=== PATIENT | male | born 2000 | race Caucasian/White ===

== ENCOUNTER 2024-01-06 18:46 | Outpatient (BNV) | payer OTHER, SELFPAY | END 2024-01-08 14:52 | PROVIDERS: Admitting Provider Psychiatry & Neurology Psychiatry; Visit Provider Internal Medicine | DX: R00.0 Tachycardia, unspecified (principal) | CPT/HCPCS: 93010 ==

== ENCOUNTER 2024-01-06 18:46 | Inpatient (IN) | payer OTHER, SELFPAY ==
[2024-01-06 19:17] VITALS: BP 144/78; PULSE 82; RESP 18; TEMP 36.9; O2SAT 99; BMI 35.8
--- NOTE | 2024-01-06 19:27 | PC.NURSE ---
Patient arrived to , at 19:10, during change of shift. Clothing changeover done & skin check was unremarkable. Vitals and weight completed. Patient is laughing and answering every question inappropriately. He has stated he lives in [place], stating I am [place] , then stated he lives in [place]. Pt is legally blind and requires assist with everything.
[2024-01-06] MEDS: Lithium Carbonate ER 300 MG TABLET.ER 600 MG PO (23:07)
[2024-01-06] MEDS: CHLORPROMAZINE 225 MG PO (23:08)
[2024-01-06] MEDS: traZODone HCL 50 MG TABLET PO ×2 (23:08→23:57)
[2024-01-06] MEDS: hydrOXYzine HCL 25 MG TABLET PO (23:57)
--- NOTE | 2024-01-07 01:43 | PC.ADMIT ---
Gilberto is a 23 y.o. direct admit from [facility]. He arrived to the unit on 01/06/24 at 19:15 on Sec 12B. The day shift RN checked his VS, his skin and oriented him to the unit. He did not sign any admission papers d/t disorganized behavior. Pt is also legally blind, but able to ambulate independently in his room and hallway. Appears to have difficulty seeing smaller things like food or his belongings. Initially he was placed in Room 506-1, but shortly he was transferred to Group Room B because he was very loud, screaming and shouting in his room. At some point pt was found naked in his room, needed redirection and assist with dressing. Also he was very loud self dialoguing, shouting and laughing and pacing in hallway, needed frequent redirection. Stated that he can't fall asleep, took meds willingly. According to crisis evaluation he presented at [facility] due to concerns for agitation and psychosis. Pt lives in a correction in [place], he started screaming and shouting at a restaurant and continued to do so in ED. He was known to the staff in [place] ED and has been violent towards staff in the past. He was treated with IM Haldol, Ativan, and Benadryl for agitation. Pt does not seem to have a guardian, but according to mother patient has a significant history of psychiatric admissions since his childhood.
[2024-01-07] MEDS: Levothyroxine Sodium 25 MCG TABLET PO (06:41)
[2024-01-07 08:00] VITALS: BP 156/90; PULSE 110; RESP 16; TEMP 36.4; O2SAT 97
[2024-01-07] MEDS: Lithium Carbonate ER 300 MG TABLET.ER 600 MG PO ×2 (08:35→20:36)
[2024-01-07] MEDS: Cholecalciferol (Vitamin D3) 25 MCG TABLET PO (08:38)
[2024-01-07] MEDS: metFORMIN HCl 850 MG TABLET PO ×2 (08:38→20:37)
[2024-01-07] MEDS: CHLORPROMAZINE 225 MG PO ×2 (08:42→20:35)
[2024-01-07 08:52] LABS: Estimated Average Glucose 100 mg/dL; Hemoglobin A1C 126.1927 umol/L; Hemoglobin A1c % 5.1 % (<6.0); Total Hemoglobin (HGBA1C) 3966.1553 umol/L
[2024-01-07 08:59] LABS: Creatinine Clr Calc Pharmacy 125.4; Estimated Glomerular Filt Rate > 60
[2024-01-07 09:07] LABS: Cholesterol 220 mg/dL (<200); HDL Cholesterol 36 mg/dL (>40); LDL Cholesterol Calculated 146 mg/dL (<100); Triglycerides 193 mg/dL (<150)
[2024-01-07 09:25] LABS: Free T4 (Free Thyroxine) 1.33 ng/dL (0.71-1.85); Thyroid Stimulating Hormone 1.71 uIU/mL (0.32-4.0)
[2024-01-07 09:36] LABS: Folate 18.3 ng/mL (> or = 4.0); Vitamin B12 686 pg/mL (200-900)
--- NOTE | 2024-01-07 13:12 | P.CNHOSGPS_ITS ---
History of Present Illness Data of Consult Service Date: 01/07/24 Primary Care Provider: Unknown Physician HPI Reason for consult: medical H+P 23yo M with DM2 on MTF + hypothyroidism on LT4 admitted to for psychiatric decompensation; medical H+P requested per protocol. Pt has no current medical complaints, denying any fever, headache, chills, chest pain, palpitations, dyspnea, cough, abd pain, nausea, or vomiting. Review of Systems 2 Review of Systems: Yes all other systems are reviewed and are negative [facility] Medical History (Updated 01/07/24 @ 13:15 by Fariba Dasilva MD) Type 2 diabetes mellitus Hypothyroidism Surgical History (Updated 01/07/24 @ 13:14 by Fariba Dasilva MD) No pertinent past surgical history Social History Household Members: Family Housing: Other Housing Other:: Long-Term Patient Tobacco Use Status: Never used Tobacco Use of substances other than those prescribed or required for medical reasons: No Currently Displaying Signs/Symptoms of Drug Intoxication Withdrawal: No Advance Directives: No Advance Directives Information Provided: No Do you have thoughts of harming others: None Do you have a plan to hurt others: No Plan Recently lost weight without trying: No Eating poorly because of decreased appetite: No Nutrition Risks: No Nutritional Risk Meds Allergies Allergy/AdvReac Type Severity Reaction Status Date / Time Unable to Assess Allergy Verified 01/06/24 19:18 Active Medications: Current Medications Acetaminophen (Acetaminophen 325 Mg Tablet) 650 mg PO Q6H PRN PRN Reason: Headache/Pain Mild Scale (1-3) Acetaminophen (Acetaminophen 325 Mg Tablet) 975 mg PO Q8H PRN PRN Reason: Analgesia Al Hydroxide/Mg Hydroxide (Magnesium Hydrox/Alum Hydrox 30 Ml Oral.Susp) 30 ml PO Q6H PRN PRN Reason: Heartburn/Nausea Chlorpromazine HCl 200 mg/ (Chlorpromazine HCl 25 mg) 225 mg PO BID [facility] Last Admin: 01/07/24 08:42 Dose: 225 mg Hydroxyzine HCl (Hydroxyzine Hcl 25 Mg Tablet) 25 mg PO Q6H PRN PRN Reason: Anxiety Last Admin: 01/06/24 23:57 Dose: 25 mg Levothyroxine Sodium (Levothyroxine Sodium 25 Mcg Tablet) 25 mcg PO DAILY@0600 [facility] Last Admin: 01/07/24 06:41 Dose: 25 mcg [place] Carbonate ([place] Carbonate Er 300 Mg Tablet.Er) 600 mg PO BID [facility] Last Admin: 01/07/24 08:35 Dose: 600 mg Magnesium Hydroxide (Milk Of Magnesia 30 Ml Oral.Susp) 30 ml PO DAILY PRN PRN Reason: Constipation Metformin HCl (Metformin Hcl 850 Mg Tablet) 850 mg PO BID [facility] Last Admin: 01/07/24 08:38 Dose: 850 mg Nicotine Polacrilex (Nicotine Polacrilex 2 Mg Gum) 4 mg BUCCAL Q2H PRN PRN Reason: Nicotine Cravings Non-Formulary Medication ([place]-3 Acid Ethyl Esters) 1 gm PO DAILY [facility] Trazodone HCl (Trazodone Hcl 50 Mg Tablet) 50 mg PO BEDTIME MRX1 PRN PRN Reason: Insomnia Last Admin: 01/06/24 23:57 Dose: 50 mg Vitamin D (Cholecalciferol (Vitamin D3) 25 Mcg Tablet) 25 mcg PO DAILY [facility] Last Admin: 01/07/24 08:38 Dose: 25 mcg Home Medications ?Medication ?Instructions ?Recorded ?Confirmed ?Last Taken ?Type acetaminophen 500 mg tablet 1,000 mg PO Q8-10H PRN Analgesia 01/06/24 01/06/24 Unknown History chlorpromazine 100 mg tablet 225 mg PO BID 01/06/24 01/06/24 Unknown History cholecalciferol (vitamin D3) 25 25 mcg PO DAILY 01/06/24 01/06/24 Unknown History mcg (1,000 unit) capsule levothyroxine 25 mcg tablet 25 mcg PO DAILY 01/06/24 01/06/24 Unknown History lithium carbonate 300 mg 600 mg PO BID 01/06/24 01/06/24 Unknown History tablet,extended release (Lithobid) metformin 850 mg tablet 850 mg PO BID 01/06/24 01/06/24 Unknown History omega-3 acid ethyl esters 1 gram 1 g PO DAILY 01/06/24 01/06/24 Unknown History capsule Results Labs 01/07/24 08:22 Labs: Laboratory Results - last 24 hr 01/07/24 08:22 Estim Creat Clear Calc 125.4 Estimated GFR > 60 Estimat Average Glucose 100 Hemoglobin A1c % 5.1 Triglycerides 193 H Cholesterol 220 H LDL Cholesterol, Calc 146 H HDL Cholesterol 36 L Vitamin B12 686 Folate 18.3 TSH 1.71 Free T4 1.33 Assessment and Plan (1) Type 2 diabetes mellitus: Status: Acute (2) Hypothyroidism: Status: Acute Plan 23yo M with DM2 on MTF + hypothyroidism on LT4 admitted to for psychiatric decompensation. Pt has no current medical complaints. DM2 - A1c only 5.1; no need for POC BGs; continue MTF hypothyroidism - TSH therapeutic; continue LT4 Psychiatric plan per primary team. Thank you for this consultation. We are signing off the case at this time. Please communicate with us if any new medical questions arise. Physical Exam Vital Signs: Last Vital Signs Temp 97.5 F 01/07/24 08:00 Pulse 110 H 01/07/24 08:00 Resp 16 01/07/24 08:00 BP 156/90 H 01/07/24 08:00 Pulse Ox 97 01/07/24 08:00 O2 Del Method Room Air 01/06/24 19:17 BMI result Body Mass Index 35.8 Gen: in no acute distress HEENT: sclera anicteric, moist mucus membranes Neck: supple Lungs: clear to auscultation bilaterally Heart: regular, tachycardic, no murmurs Abd: soft, non-tender, non-distended Ext: no edema Skin: warm/well-perfused Neuro: alert and oriented x3, no focal findings, CNII-XII intact bilaterally Psych: restricted affect Neuro Cranial nerves: Yes CN's II-XII intact bilaterally
--- NOTE | 2024-01-07 13:31 | HO.PSYADMNOT ---
HPI Date of Service: 01/07/24 Chief Complaint: Unspecified Bipolar Sources of Information: patient interviewed, chart reviewed and crisis/core team assessment reviewed Additional Sources of Information: Anxious HPI Subjective Notes: Section 12B Healthcare Proxy: No Guardianship: No Medical Problems Affecting Mental Status: No Narrative: 23 yo male with long hx of psychiatric issues , reviewed hx presented on papers from transferring ER in [facility] where he is in a custodial- Pt has been decompensating for a bit, prior to admission/agitation episode of screaming and yelling in a restaurant that ppt this admission - he was feeling that a billion eye were watching him. He started yelling and screaming at restaurant and that continued in ER presentation- as well as since on this unit- Pt had been saying he was [place]. Pt denies med noncompliance with this provider- prior to admission- Here patient pacing halls, allowed me to walk with him - Past Psychiatric History: 6 months hospitalization in teens at residential - Medical Evaluation Reviewed: Yes (wasn't able to gather much- has hx DM2, ) note high bp -though hospitalist did not advise- put him on clonidine-it might help him calm down and bring bp down no hx sub abuse DM2 and hypothyroidism [facility] Medical History (Updated 01/07/24 @ 20:08 by Saray Macias MD) Type 2 diabetes mellitus Hypothyroidism Surgical History (Updated 01/07/24 @ 13:14 by Fariba Dasilva MD) No pertinent past surgical history Family History: though mother/father seem in touch with custodial, no guardianship or HCP Social History: lives at custodial for mental health reasons, ?developmental issue or exclusive mh Substance History: none known Trauma History: unknown patient can not answer at this time Diagnostics Vital Signs (24Hr): Vital Signs - 24 hr 01/06/24 19:17 01/07/24 08:00 Temperature 98.4 F 97.5 F Pulse Rate 82 110 H Respiratory Rate 18 16 Blood Pressure 144/78 H 156/90 H Pulse Oximetry 99 97 Oxygen Delivery Method Room Air BMI result Body Mass Index 35.8 Labs 01/07/24 08:22 Labs: Laboratory Results - last 48 hr 01/07/24 08:22 Creatinine 0.95 Estim Creat Clear Calc 125.4 Estimated GFR > 60 Estimat Average Glucose 100 Hemoglobin A1c % 5.1 Triglycerides 193 H Cholesterol 220 H LDL Cholesterol, Calc 146 H HDL Cholesterol 36 L Vitamin B12 686 Folate 18.3 TSH 1.71 Free T4 1.33 Meds/Allergies Meds Home Medications ?Medication ?Instructions ?Recorded ?Confirmed ?Type acetaminophen 500 mg tablet 1,000 mg PO Q8-10H PRN Analgesia 01/06/24 01/06/24 History chlorpromazine 100 mg tablet 225 mg PO BID 01/06/24 01/06/24 History cholecalciferol (vitamin D3) 25 25 mcg PO DAILY 01/06/24 01/06/24 History mcg (1,000 unit) capsule levothyroxine 25 mcg tablet 25 mcg PO DAILY 01/06/24 01/06/24 History lithium carbonate 300 mg 600 mg PO BID 01/06/24 01/06/24 History tablet,extended release (Lithobid) metformin 850 mg tablet 850 mg PO BID 01/06/24 01/06/24 History omega-3 acid ethyl esters 1 gram 1 g PO DAILY 01/06/24 01/06/24 History capsule Allergies Allergies Allergy/AdvReac Type Severity Reaction Status Date / Time No Known Allergies Allergy Verified 01/07/24 18:59 Mental Status Exam Mental Status Exam Narrative: restless , bizarre , throws self on floor in [place], lying down, other times pacing other times yelling and screaming- and disrobing Patient Appearance: Perspiring and Unkempt Patient Orientation: Person Level of Consciousness: Awake and Restless Patient Behavior: Hyperactive, Resistive to Care, Impulsive, Pacing and Poor Eye Contact Mood Description: Apprehensive and Expansive Affect Description: Labile Ability to Follow Directions: Poor Speech Pattern: Rambling and Loud Delusions: Paranoid Ideation and Grandiose Thought Process: Distracted Thought Content: positive for Disorganized Depressive Symptoms: Increased Anxiety, Diff. Making Decisions and Increased Irritability Abnormal Motor Activity Signs and Symptoms: Agitation and Restlessness Judgement: Poor Assessment & Plan Assessment & Plan (1) Hypothyroidism: Status: Acute Code(s): E03.9 - Hypothyroidism, unspecified (2) Type 2 diabetes mellitus: Status: Acute Code(s): E11.9 - Type 2 diabetes mellitus without complications (3) Schizophrenia, chronic condition: Status: Acute Code(s): F20.9 - Schizophrenia, unspecified Plan 23 yo with extensive hx of psychiatric conditions - unclear guardianship or HCP, living in custodial acute decompensation of disorder- Patient educated on: other Informed Consent: does not understand and further education needed Reason for continued inpatient stay Substantial Risk for: harm to self, inability to function and rapid decompensation Statement Statement: I have reviewed the history and physical and performed a pertinent examination on my patient. No changes have occurred unless specified. If the History and Physical was not performed prior to admission, the Hospitalist's service will be consulted for completing the admission physical. Time Spent With Patient Time: Total time managing care of this patient today ____ minutes.
[2024-01-07] MEDS: OLANZapine ODT 10 MG TAB.RAPDIS TRANSLINGU (14:40)
[2024-01-07] MEDS: chlorproMAZINE HCl 100 MG TABLET 200 MG PO (18:23)
[2024-01-07 20:00] VITALS: BP 148/105; PULSE 137; TEMP 37.2; O2SAT 98
[2024-01-07 20:30] VITALS: BP 114/73; PULSE 118; TEMP 36.4
[2024-01-07 20:37] VITALS: BP 114/73
[2024-01-07] MEDS: cloNIDine HCL 0.1 MG TABLET PO (20:37)
[2024-01-07] MEDS: traZODone HCL 50 MG TABLET PO (20:38)
--- NOTE | 2024-01-08 | ECG_ITS ---
Test Reason : check qtc Blood Pressure : / mmHG Vent. Rate : 106 BPM Atrial Rate : 106 BPM P-R Int : 168 ms QRS Dur : 076 ms QT Int : 364 ms P-R-T Axes : 041 058 045 degrees QTc Int : 483 ms Sinus tachycardia Otherwise normal ECG No previous ECGs available Referred By: Saray Macias Electronically Signed By:SADIQ THORNE
[2024-01-08] MEDS: chlorproMAZINE HCl 100 MG TABLET 200 MG PO ×2 (05:38→18:57)
[2024-01-08] MEDS: Levothyroxine Sodium 25 MCG TABLET PO (05:38)
[2024-01-08 08:00] VITALS: TEMP 36.3
[2024-01-08] MEDS: hydrOXYzine HCL 25 MG TABLET PO (09:27)
[2024-01-08] MEDS: Cholecalciferol (Vitamin D3) 25 MCG TABLET PO (09:27)
[2024-01-08] MEDS: Lithium Carbonate ER 300 MG TABLET.ER 600 MG PO ×2 (09:27→20:41)
[2024-01-08] MEDS: CHLORPROMAZINE 225 MG PO ×2 (09:27→20:41)
[2024-01-08 09:28] VITALS: BP 144/90
[2024-01-08] MEDS: metFORMIN HCl 850 MG TABLET PO ×2 (09:28→20:42)
[2024-01-08] MEDS: cloNIDine HCL 0.1 MG TABLET PO ×2 (09:28→20:42)
--- NOTE | 2024-01-08 10:37 | P.PNPSI_ITS ---
Subjective Subjective Date of Service: 01/08/24 Reason For Visit: Unspecified Bipolar Subjective Notes: Section 12B Healthcare Proxy: No Guardianship: No Medical Problems Affecting Mental Status: No Interim History: 23 yo continuing quite disorganized, 10mg olanzapine had little effect yesterday- today we tried 20mg and this seem to have some effect- pt felt better and there was some less lability for a period of time, he didn't yell, disrobe He got his blood drawn and he allowed them to do an ekg. Medication Compliance: Yes Side effects from medications: No Attending Groups: No Review of Systems Acute medical concerns: No though I am concerned about high dose of chlorpromazine and qtc Medical Review of Systems: unchanged Mental Status Exam Mental Status Exam Patient Appearance: Disheveled, Perspiring and Unkempt Patient Orientation: Person and Place Level of Consciousness: Awake Patient Behavior: Restless, Distractible, Impulsive and Poor Eye Contact Mood Description: Apathetic Affect Description: Labile Patient Cognition Impaired: No Ability to Follow Directions: Poor Speech Pattern: Mumbled Hallucinations: None Thought Process: Illogical Thought Content: positive for Poverty of Content and positive for Disorganized Abnormal Motor Activity Signs and Symptoms: Agitation, Muscle Rigidity and Restlessness Judgement: Poor Diagnostics Vital Signs (24Hr): Vital Signs - 24 hr 01/07/24 20:00 01/07/24 20:30 01/07/24 20:37 Temperature 98.9 F 97.6 F Pulse Rate 137 H 118 H Blood Pressure 148/105 H 114/73 114/73 Pulse Oximetry 98 Oxygen Delivery Method Room Air 01/08/24 08:00 01/08/24 09:28 Temperature 97.4 F Pulse Rate Blood Pressure 144/90 H Pulse Oximetry Oxygen Delivery Method BMI result Body Mass Index 35.8 Labs 01/08/24 15:03 01/08/24 15:03 Labs: Laboratory Results - last 48 hr 01/07/24 08:22 Creatinine 0.95 Estim Creat Clear Calc 125.4 Estimated GFR > 60 Estimat Average Glucose 100 Hemoglobin A1c % 5.1 Triglycerides 193 H Cholesterol 220 H LDL Cholesterol, Calc 146 H HDL Cholesterol 36 L Vitamin B12 686 Folate 18.3 TSH 1.71 Free T4 1.33 EKG EKG: reviewed Medications Medications Current Medications Acetaminophen (Acetaminophen 325 Mg Tablet) 650 mg PO Q6H PRN PRN Reason: Headache/Pain Mild Scale (1-3) Acetaminophen (Acetaminophen 325 Mg Tablet) 975 mg PO Q8H PRN PRN Reason: Analgesia Al Hydroxide/Mg Hydroxide (Magnesium Hydrox/Alum Hydrox 30 Ml Oral.Susp) 30 ml PO Q6H PRN PRN Reason: Heartburn/Nausea Chlorpromazine HCl 200 mg/ (Chlorpromazine HCl 25 mg) 225 mg PO BID [facility] Last Admin: 01/08/24 09:27 Dose: 225 mg Chlorpromazine HCl (Chlorpromazine Hcl 100 Mg Tablet) 200 mg PO BID PRN PRN Reason: agitation Last Admin: 01/08/24 05:38 Dose: 200 mg Clonidine HCl (Clonidine Hcl 0.1 Mg Tablet) 0.1 mg PO BID [facility]; Protocol Last Admin: 01/08/24 09:28 Dose: 0.1 mg Hydroxyzine HCl (Hydroxyzine Hcl 25 Mg Tablet) 25 mg PO Q6H PRN PRN Reason: Anxiety Last Admin: 01/08/24 09:27 Dose: 25 mg Levothyroxine Sodium (Levothyroxine Sodium 25 Mcg Tablet) 25 mcg PO DAILY@0600 [facility] Last Admin: 01/08/24 05:38 Dose: 25 mcg [place] Carbonate ([place] Carbonate Er 300 Mg Tablet.Er) 600 mg PO BID [facility] Last Admin: 01/08/24 09:27 Dose: 600 mg Magnesium Hydroxide (Milk Of Magnesia 30 Ml Oral.Susp) 30 ml PO DAILY PRN PRN Reason: Constipation Metformin HCl (Metformin Hcl 850 Mg Tablet) 850 mg PO BID [facility] Last Admin: 01/08/24 09:28 Dose: 850 mg Nicotine Polacrilex (Nicotine Polacrilex 2 Mg Gum) 4 mg BUCCAL Q2H PRN PRN Reason: Nicotine Cravings Non-Formulary Medication ([place]-3 Acid Ethyl Esters) 1 gm PO DAILY [facility] Olanzapine (Olanzapine Odt 10 Mg Tab.Rapdis) 10 mg TRANSLINGU DAILY PRN PRN Reason: psychosis Last Admin: 01/07/24 14:40 Dose: 10 mg Olanzapine (Olanzapine Odt 10 Mg Tab.Rapdis) 20 mg TRANSLINGU DAILY [facility] Trazodone HCl (Trazodone Hcl 50 Mg Tablet) 50 mg PO BEDTIME MRX1 PRN PRN Reason: Insomnia Last Admin: 01/07/24 20:38 Dose: 50 mg Vitamin D (Cholecalciferol (Vitamin D3) 25 Mcg Tablet) 25 mcg PO DAILY [facility] Last Admin: 01/08/24 09:27 Dose: 25 mcg Allergies Allergies Allergy/AdvReac Type Severity Reaction Status Date / Time No Known Allergies Allergy Verified 01/07/24 18:59 Assessment & Plan Assessment & Plan (1) Hypothyroidism: Status: Acute Code(s): E03.9 - Hypothyroidism, unspecified (2) Type 2 diabetes mellitus: Status: Acute Code(s): E11.9 - Type 2 diabetes mellitus without complications (3) Schizophrenia, chronic condition: Status: Acute Code(s): F20.9 - Schizophrenia, unspecified Plan 23 yo with extensive hx of psychiatric conditions - unclear guardianship or HCP, living in shelter acute decompensation of disorder- 01/07 more calm after olanzapine 20mg, today - ? if lower chlorpromazine prns- , got ekg and follow up lab I had ordered Patient educated on: medication risk/benefits Informed Consent: further education needed (needs a guardian) Reason for continued inpatient stay Substantial Risk for: harm to others, inability to function and rapid decompensation Time Spent With Patient Time: Total time managing care of this patient today ____ minutes.
[2024-01-08] MEDS: OLANZapine ODT 10 MG TAB.RAPDIS 20 MG TRANSLINGU (12:02)
[2024-01-08 15:10] LABS: MANUAL DIFF FLAG NO
[2024-01-08 15:13] LABS: Basophils Percent Auto 0.4 % (0-2); Eosinophils Absolute Auto 0.2 X10*3/uL (0.0-0.4); Eosinophils Percent Auto 2.5 % (0-4); Hematocrit 41.4 % (42.0-52.0); Hemoglobin 14.3 g/dl (14.0-18.0); Imm Gran Abs Auto 0.04 X10*3/uL (0.00-0.03); Imm Gran Pct Auto 0.4 % (0.0-0.4); Lymphocytes Absolute Auto 2.9 X10*3/uL (1.2-4.9); Mean Corpuscular HGB Conc 34.5 g/dl (31.0-36.0); Mean Corpuscular Volume 86.8 fL (80.0-98.0); Mean Platelet Volume 8.9 fL (9.4-12.4); Monocytes Absolute Auto 0.6 X10*3/uL (0.1-1.2); Monocytes Percent Auto 6.8 % (2-11); Neutrophils Absolute Auto 5.4 x10*3/uL (2.0-8.3); Neutrophils Percent Auto 58.9 % (45-73); Platelet Count 249 X10*3/uL (160-400); Red Blood Count 4.77 X10*6/uL (4.60-5.80); Red Cell Distribution Width 12.7 % (11.0-16.0); White Blood Count 9.3 X10*3/uL (4.8-10.8)
[2024-01-08 15:24] LABS: Lithium 0.65 mmol/L (0.60-1.20)
[2024-01-08 15:31] LABS: Alanine Aminotransferase 47 U/L (0-40); Albumin Level 4.1 g/dL (3.5-5.0); Alkaline Phosphatase 87 U/L (39-117); Anion Gap 15 (12-20); Aspartate Amino Transferase 30 U/L (5-37); Bilirubin Total 0.3 mg/dL (0.0-1.0); Blood Urea Nitrogen 12 mg/dL (9-16); Calcium 9.5 mg/dL (8.4-10.2); Carbon Dioxide 22 mmol/L (22-29); Chloride 107 mmol/L (96-108); Creatinine Clr Calc Pharmacy 132.3; Estimated Glomerular Filt Rate > 60; Glucose Random 101 mg/dL (60-115); Potassium 3.8 mmol/L (3.3-5.1); Sodium 140 mmol/L (135-145); Total Protein 6.4 g/dL (6.5-8.0)
[2024-01-08 19:55] VITALS: BP 131/81; PULSE 125; RESP 15; TEMP 36.6; O2SAT 99
[2024-01-08] MEDS: traZODone HCL 50 MG TABLET PO (20:42)
[2024-01-09] MEDS: hydrOXYzine HCL 25 MG TABLET PO ×2 (00:06→12:56)
[2024-01-09] MEDS: OLANZapine ODT 10 MG TAB.RAPDIS TRANSLINGU (00:06)
[2024-01-09] MEDS: traZODone HCL 50 MG TABLET PO ×2 (00:06→20:48)
[2024-01-09] MEDS: chlorproMAZINE HCl 100 MG TABLET PO ×2 (02:34→12:56)
[2024-01-09] MEDS: LORazepam 1 MG TABLET 2 MG PO (02:55)
[2024-01-09] MEDS: diphenhydrAMINE HCL 25 MG CAPSULE 50 MG PO (02:55)
[2024-01-09] MEDS: Levothyroxine Sodium 25 MCG TABLET PO (06:03)
[2024-01-09] MEDS: CHLORPROMAZINE 225 MG PO ×2 (09:03→20:48)
[2024-01-09] MEDS: OLANZapine ODT 10 MG TAB.RAPDIS 20 MG TRANSLINGU (09:04)
[2024-01-09] MEDS: Lithium Carbonate ER 300 MG TABLET.ER 600 MG PO (09:04)
[2024-01-09] MEDS: cloNIDine HCL 0.1 MG TABLET PO ×2 (09:04→20:47)
[2024-01-09] MEDS: metFORMIN HCl 850 MG TABLET PO ×2 (09:05→20:48)
[2024-01-09] MEDS: Cholecalciferol (Vitamin D3) 25 MCG TABLET PO (09:05)
--- NOTE | 2024-01-09 09:38 | P.PNPSI_ITS ---
Subjective Subjective Date of Service: 01/09/24 Reason For Visit: Unspecified Bipolar Interim History: met with patient; discussed with team; reviewed chart Over the weekend, patient louder, naked in the hallway and shouting violent threats towards staff; lost privilege of using walking cane. Overnight little sleep, only 3 hours Today, patient still walking up and down the [place] and Intermittently yelling or saying various provocative statements such as the N word towards staff; yelled a genital epithet toward staff/peer; other sexual comments; however, he seems to be more verbally redirectable and has not made any verbal threats so far. Still intermittently disrobing. Chair Car Attendant asked why he would make these provocative statements or comments; patient says I see images... Images of snow on the roof, reindeer, bright lights... He also says I yell out loud what I hear... On inquiry patient denies auditory hallucinations and recalibrates to say he yells what his mind is thinking. He says medications help and that they seem to calm him down. During one-to-one conversation patient polite with show card writer, answering questions as asked without much elaboration. Mental Status Exam Mental Status Exam Narrative: Pt is alert and oriented; behavior is still disorganized (maybe a bit improved) yelling, swearing, racial/genital epithets, pacing back and forth in hallway, sometimes disrobing... patient is not in distress; dressed in hospital attire, unkempt; mood is described as good and affect blunted or constricted; eye contact limited (legally blind); Speech is monotone, sometimes loud; normal rate; not pressured; mild to moderate psychomotor agitation present; thought process is concrete, goal directed; Thought content is on what he wants at the moment; no expressed delusional content; denies any SI/HI. Positive for AH and internally preoccupied; Patients insight and judgment impaired. Diagnostics Vital Signs (24Hr): Vital Signs - 24 hr 01/08/24 19:55 Temperature 98 F Pulse Rate 125 H Respiratory Rate 15 Blood Pressure 131/81 Pulse Oximetry 99 BMI result Body Mass Index 35.8 Labs 01/08/24 15:03 01/08/24 15:03 Labs: Laboratory Results - last 48 hr 01/08/24 15:03 WBC 9.3 RBC 4.77 Hgb 14.3 Hct 41.4 L MCV 86.8 MCH 30.0 MCHC 34.5 RDW 12.7 Plt Count 249 MPV 8.9 L Immature Gran % (Auto) 0.4 Neut % (Auto) 58.9 Lymph % (Auto) 31.0 [place] % (Auto) 6.8 Eos % (Auto) 2.5 Baso % (Auto) 0.4 Lymph # (Auto) 2.9 [place] # (Auto) 0.6 Eos # (Auto) 0.2 Baso # (Auto) 0.0 Abs Immat Gran (auto) 0.04 H Absolute Neuts (auto) 5.4 Absolute Nucleated RBC 0.000 Nucleated RBC % (auto) 0.0 Sodium 140 Potassium 3.8 Chloride 107 Carbon Dioxide 22 Anion Gap 15 BUN 12 Creatinine 0.90 Estim Creat Clear Calc 132.3 Estimated GFR > 60 Random Glucose 101 Calcium 9.5 Total Bilirubin 0.3 AST 30 ALT 47 H Alkaline Phosphatase 87 Total Protein 6.4 L Albumin 4.1 [place] 0.65 Medications Medications Current Medications Acetaminophen (Acetaminophen 325 Mg Tablet) 650 mg PO Q6H PRN PRN Reason: Headache/Pain Mild Scale (1-3) Acetaminophen (Acetaminophen 325 Mg Tablet) 975 mg PO Q8H PRN PRN Reason: Analgesia Al Hydroxide/Mg Hydroxide (Magnesium Hydrox/Alum Hydrox 30 Ml Oral.Susp) 30 ml PO Q6H PRN PRN Reason: Heartburn/Nausea Chlorpromazine HCl 200 mg/ (Chlorpromazine HCl 25 mg) 225 mg PO BID [facility] Last Admin: 01/09/24 09:03 Dose: 225 mg Chlorpromazine HCl (Chlorpromazine Hcl 100 Mg Tablet) 100 mg PO BID PRN PRN Reason: agitation Last Admin: 01/09/24 02:34 Dose: 100 mg Clonidine HCl (Clonidine Hcl 0.1 Mg Tablet) 0.1 mg PO BID [facility]; Protocol Last Admin: 01/09/24 09:04 Dose: 0.1 mg Hydroxyzine HCl (Hydroxyzine Hcl 25 Mg Tablet) 25 mg PO Q6H PRN PRN Reason: Anxiety Last Admin: 01/09/24 00:06 Dose: 25 mg Levothyroxine Sodium (Levothyroxine Sodium 25 Mcg Tablet) 25 mcg PO DAILY@0600 [facility] Last Admin: 01/09/24 06:03 Dose: 25 mcg [place] Carbonate ([place] Carbonate Er 300 Mg Tablet.Er) 600 mg PO BID [facility] Last Admin: 01/09/24 09:04 Dose: 600 mg Magnesium Hydroxide (Milk Of Magnesia 30 Ml Oral.Susp) 30 ml PO DAILY PRN PRN Reason: Constipation Metformin HCl (Metformin Hcl 850 Mg Tablet) 850 mg PO BID [facility] Last Admin: 01/09/24 09:05 Dose: 850 mg Nicotine Polacrilex (Nicotine Polacrilex 2 Mg Gum) 4 mg BUCCAL Q2H PRN PRN Reason: Nicotine Cravings Olanzapine (Olanzapine Odt 10 Mg Tab.Rapdis) 10 mg TRANSLINGU DAILY PRN PRN Reason: psychosis Last Admin: 01/09/24 00:06 Dose: 10 mg Olanzapine (Olanzapine Odt 10 Mg Tab.Rapdis) 20 mg TRANSLINGU DAILY [facility] Last Admin: 01/09/24 09:04 Dose: 20 mg Trazodone HCl (Trazodone Hcl 50 Mg Tablet) 50 mg PO BEDTIME MRX1 PRN PRN Reason: Insomnia Last Admin: 01/09/24 00:06 Dose: 50 mg Vitamin D (Cholecalciferol (Vitamin D3) 25 Mcg Tablet) 25 mcg PO DAILY [facility] Last Admin: 01/09/24 09:05 Dose: 25 mcg Allergies Allergies Allergy/AdvReac Type Severity Reaction Status Date / Time No Known Allergies Allergy Verified 01/07/24 18:59 Assessment & Plan Assessment & Plan (1) Schizophrenia, chronic condition: Status: Acute Code(s): F20.9 - Schizophrenia, unspecified (2) Hypothyroidism: Status: Acute Code(s): E03.9 - Hypothyroidism, unspecified (3) Type 2 diabetes mellitus: Status: Acute Code(s): E11.9 - Type 2 diabetes mellitus without complications Plan 23 yo with extensive hx of psychiatric conditions - unclear guardianship or HCP, living in [facility] acute decompensation of disorder- Hospital course: 01/07 more calm after olanzapine 20mg, today - ? if lower chlorpromazine prns- , got ekg and follow up lab I had ordered 01/08 Over the weekend, patient louder, naked in the hallway and shouting violent threats towards staff; lost privilege of using walking cane. Overnight little sleep, only 3 hours Today, patient still walking up and down the [place] and Intermittently yelling or saying various provocative statements such as the N word towards staff; yelled a genital epithet toward staff/peer; other sexual comments; however, he seems to be more verbally redirectable and has not made any verbal threats so far. Still intermittently disrobing. Chair Car Attendant asked why he would make these provocative statements or comments; patient says I see images... Images of snow on the roof, reindeer, bright lights... He also says I yell out loud what I hear... On inquiry patient denies auditory hallucinations and recalibrates to say he yells what his mind is thinking. He says medications help and that they seem to calm him down. During one-to-one conversation patient calm, even polite with show card writer, answering questions as asked without much elaboration. Need collateral to assess baseline Plan: Twelve B Q 15 minute checks Continue Thorazine to 25 mg b.i.d. Continue Zyprexa 20 mg daily Continue lithium ER 1200 mg, but make a q.h.s. rather than 600 mg b.i.d.to help with poor sleep -will get lithium level and associated labs Continue clonidine 0.1 mg b.i.d. Continue levothyroxine 25 mcg daily Continue metformin 850 mg b.i.d. Patient has Zyprexa 10 mg daily p.r.n. Thorazine 100 mg b.i.d. p.r.n. Patient educated on: diagnosis and medication risk/benefits Informed Consent: understands, does not understand and further education needed Reason for continued inpatient stay Substantial Risk for: inability to function and rapid decompensation Time Spent With Patient Time: Total time managing care of this patient today ____ minutes.
[2024-01-09 20:00] VITALS: BP 126/78; PULSE 70; TEMP 36.8; O2SAT 98
[2024-01-09] MEDS: Lithium Carbonate ER 300 MG TABLET.ER 1200 MG PO (20:46)
[2024-01-09 20:47] VITALS: BP 136/73
[2024-01-10] MEDS: traZODone HCL 50 MG TABLET PO ×3 (01:00→22:28)
[2024-01-10] MEDS: chlorproMAZINE HCl 100 MG TABLET PO ×2 (01:00→22:28)
[2024-01-10] MEDS: Levothyroxine Sodium 25 MCG TABLET PO (07:42)
[2024-01-10] MEDS: Cholecalciferol (Vitamin D3) 25 MCG TABLET PO (09:43)
[2024-01-10] MEDS: CHLORPROMAZINE 225 MG PO ×2 (09:43→21:17)
[2024-01-10] MEDS: metFORMIN HCl 850 MG TABLET PO ×2 (09:43→21:17)
[2024-01-10] MEDS: OLANZapine ODT 10 MG TAB.RAPDIS 20 MG TRANSLINGU (09:43)
--- NOTE | 2024-01-10 09:43 | P.PNPSI_ITS ---
Subjective Subjective Date of Service: 01/10/24 Reason For Visit: Unspecified Bipolar Interim History: Met with patient; discussed with team Patient remains disorganized. He is still pacing the [place], intermittently saying inappropriate sexual remarks but he is no longer yelling them and is noticeably more polite and deferential, more easily redirected. Still moments of disrobing. 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 At baseline no psychotic symptoms present Mental Status Exam Mental Status Exam Narrative: Pt is alert and oriented; behavior is still disorganized (maybe a bit improved), still pacing, making inappropriate remarks but no longer yelling, more polite and more easily redirected; sometimes disrobing... patient is not in distress; dressed in hospital attire, unkempt; mood is described as good and affect blunted or constricted; eye contact limited (legally blind); Speech is monotone, sometimes loud; normal rate; not pressured; mild to moderate psychomotor agitation present; thought process is concrete, goal directed; Thought content is on what he wants at the moment; no expressed delusional content; denies any SI/HI. Positive for AH and internally preoccupied; Patients insight and judgment impaired. Diagnostics Vital Signs (24Hr): Vital Signs - 24 hr 01/09/24 20:00 01/09/24 20:47 Temperature 98.3 F Pulse Rate 70 Blood Pressure 126/78 136/73 Pulse Oximetry 98 BMI result Body Mass Index 35.8 Labs 01/08/24 15:03 01/11/24 08:53 Labs: Laboratory Results - last 48 hr 01/08/24 15:03 WBC 9.3 RBC 4.77 Hgb 14.3 Hct 41.4 L MCV 86.8 MCH 30.0 MCHC 34.5 RDW 12.7 Plt Count 249 MPV 8.9 L Immature Gran % (Auto) 0.4 Neut % (Auto) 58.9 Lymph % (Auto) 31.0 [place] % (Auto) 6.8 Eos % (Auto) 2.5 Baso % (Auto) 0.4 Lymph # (Auto) 2.9 [place] # (Auto) 0.6 Eos # (Auto) 0.2 Baso # (Auto) 0.0 Abs Immat Gran (auto) 0.04 H Absolute Neuts (auto) 5.4 Absolute Nucleated RBC 0.000 Nucleated RBC % (auto) 0.0 Sodium 140 Potassium 3.8 Chloride 107 Carbon Dioxide 22 Anion Gap 15 BUN 12 Creatinine 0.90 Estim Creat Clear Calc 132.3 Estimated GFR > 60 Random Glucose 101 Calcium 9.5 Total Bilirubin 0.3 AST 30 ALT 47 H Alkaline Phosphatase 87 Total Protein 6.4 L Albumin 4.1 [place] 0.65 Medications Medications Current Medications Acetaminophen (Acetaminophen 325 Mg Tablet) 975 mg PO Q8H PRN PRN Reason: Analgesia Al Hydroxide/Mg Hydroxide (Magnesium Hydrox/Alum Hydrox 30 Ml Oral.Susp) 30 ml PO Q6H PRN PRN Reason: Heartburn/Nausea Chlorpromazine HCl 200 mg/ (Chlorpromazine HCl 25 mg) 225 mg PO BID [facility] Last Admin: 01/09/24 20:48 Dose: 225 mg Chlorpromazine HCl (Chlorpromazine Hcl 100 Mg Tablet) 100 mg PO BID PRN PRN Reason: agitation Last Admin: 01/10/24 01:00 Dose: 100 mg Clonidine HCl (Clonidine Hcl 0.1 Mg Tablet) 0.1 mg PO BID [facility]; Protocol Last Admin: 01/09/24 20:47 Dose: 0.1 mg Hydroxyzine HCl (Hydroxyzine Hcl 25 Mg Tablet) 25 mg PO Q6H PRN PRN Reason: Anxiety Last Admin: 01/09/24 12:56 Dose: 25 mg Levothyroxine Sodium (Levothyroxine Sodium 25 Mcg Tablet) 25 mcg PO DAILY@0600 [facility] Last Admin: 01/10/24 07:42 Dose: 25 mcg [place] Carbonate ([place] Carbonate Er 300 Mg Tablet.Er) 1,200 mg PO BEDTIME [facility] Last Admin: 01/09/24 20:46 Dose: 1,200 mg Magnesium Hydroxide (Milk Of Magnesia 30 Ml Oral.Susp) 30 ml PO DAILY PRN PRN Reason: Constipation Metformin HCl (Metformin Hcl 850 Mg Tablet) 850 mg PO BID [facility] Last Admin: 01/09/24 20:48 Dose: 850 mg Nicotine Polacrilex (Nicotine Polacrilex 2 Mg Gum) 4 mg BUCCAL Q2H PRN PRN Reason: Nicotine Cravings Olanzapine (Olanzapine Odt 10 Mg Tab.Rapdis) 10 mg TRANSLINGU DAILY PRN PRN Reason: psychosis Last Admin: 01/09/24 00:06 Dose: 10 mg Olanzapine (Olanzapine Odt 10 Mg Tab.Rapdis) 20 mg TRANSLINGU DAILY [facility] Last Admin: 01/09/24 09:04 Dose: 20 mg Trazodone HCl (Trazodone Hcl 50 Mg Tablet) 50 mg PO BEDTIME MRX1 PRN PRN Reason: Insomnia Last Admin: 01/10/24 01:00 Dose: 50 mg Vitamin D (Cholecalciferol (Vitamin D3) 25 Mcg Tablet) 25 mcg PO DAILY [facility] Last Admin: 01/09/24 09:05 Dose: 25 mcg Allergies Allergies Allergy/AdvReac Type Severity Reaction Status Date / Time No Known Allergies Allergy Verified 01/07/24 18:59 Assessment & Plan Assessment & Plan (1) Schizophrenia, chronic condition: Status: Acute Code(s): F20.9 - Schizophrenia, unspecified (2) Hypothyroidism: Status: Acute Code(s): E03.9 - Hypothyroidism, unspecified (3) Type 2 diabetes mellitus: Status: Acute Code(s): E11.9 - Type 2 diabetes mellitus without complications Plan 23 yo with extensive hx of psychiatric conditions - unclear guardianship or HCP, living in shelter acute decompensation of disorder- Hospital course: 01/07 more calm after olanzapine 20mg, today - ? if lower chlorpromazine prns- , got ekg and follow up lab I had ordered 01/08 Over the weekend, patient louder, naked in the hallway and shouting violent threats towards staff; lost privilege of using walking cane. Overnight little sleep, only 3 hours Today, patient still walking up and down the [place] and Intermittently yelling or saying various provocative statements such as the N word towards staff; yelled a genital epithet toward staff/peer; other sexual comments; however, he seems to be more verbally redirectable and has not made any verbal threats so far. Still intermittently disrobing. -Freezer Tunnel Operator asked why he would make these provocative statements or comments; patient says I see images... Images of snow on the roof, reindeer, bright lights... He also says I yell out loud what I hear... On inquiry patient denies auditory hallucinations and recalibrates to say he yells what his mind is thinking. He says medications help and that they seem to calm him down. During one-to-one conversation patient calm, even polite with automotive service writer, answering questions as asked without much elaboration. 01/09 Patient remains disorganized. He is still pacing the [place], intermittently saying inappropriate sexual remarks but he is no longer yelling them and is noticeably more polite and deferential, more easily redirected. Still moments of disrobing. 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 At baseline no psychotic symptoms present -slept some last night -automotive service writer discussed patients baseline functioning and patient agreed to stay longer for more stabilization; sign CV -looks like Zyprexa was recently started at ED; obtained home medication regimen from shelter which includes: lithium ER 600 mg b.i.d. Thorazine to 225 mg b.i.d. Topamax 50 mg b.i.d. -continue current regimen for now; will likely add Topamax Plan: CV Q 15 minute checks Continue Thorazine to 225 mg b.i.d. Continue Zyprexa 20 mg daily Continue lithium ER 1200 mg, but make a q.h.s. rather than 600 mg b.i.d.to help with poor sleep -will get lithium level and associated labs Continue clonidine 0.1 mg b.i.d. Continue levothyroxine 25 mcg daily Continue metformin 850 mg b.i.d. Patient has Zyprexa 10 mg daily p.r.n. Thorazine 100 mg b.i.d. p.r.n. Patient educated on: diagnosis and medication risk/benefits Informed Consent: understands, does not understand and further education needed Reason for continued inpatient stay Substantial Risk for: inability to function and rapid decompensation Time Spent With Patient Time: Total time managing care of this patient today ____ minutes.
[2024-01-10 09:47] VITALS: BP 138/76; PULSE 115; RESP 15; TEMP 36.9; O2SAT 98
[2024-01-10] MEDS: cloNIDine HCL 0.1 MG TABLET PO ×2 (09:47→21:17)
[2024-01-10 19:39] VITALS: BP 110/66; PULSE 97; RESP 16; TEMP 36.9; O2SAT 99
[2024-01-10] MEDS: Lithium Carbonate ER 300 MG TABLET.ER 1200 MG PO (21:17)
[2024-01-11] MEDS: hydrOXYzine HCL 25 MG TABLET PO ×2 (04:22→22:42)
[2024-01-11] MEDS: OLANZapine ODT 10 MG TAB.RAPDIS TRANSLINGU (06:22)
[2024-01-11] MEDS: Levothyroxine Sodium 25 MCG TABLET PO (06:22)
[2024-01-11 08:00] VITALS: BP 123/84; PULSE 101; TEMP 36.8; O2SAT 97
[2024-01-11] MEDS: CHLORPROMAZINE 225 MG PO ×2 (08:54→22:42)
[2024-01-11 08:56] VITALS: BP 123/84
[2024-01-11] MEDS: metFORMIN HCl 850 MG TABLET PO ×2 (08:56→22:42)
[2024-01-11] MEDS: Cholecalciferol (Vitamin D3) 25 MCG TABLET PO (08:56)
[2024-01-11] MEDS: OLANZapine ODT 10 MG TAB.RAPDIS 20 MG TRANSLINGU (08:56)
[2024-01-11] MEDS: cloNIDine HCL 0.1 MG TABLET PO ×2 (08:56→22:42)
[2024-01-11 09:24] LABS: Lithium 0.91 mmol/L (0.60-1.20)
[2024-01-11 09:41] LABS: Blood Urea Nitrogen 13 mg/dL (9-16); Creatinine Clr Calc Pharmacy 124.1; Estimated Glomerular Filt Rate > 60
[2024-01-11 09:58] LABS: TSH reflex Free T4 1.14 uIU/mL (0.32-4.0)
--- NOTE | 2024-01-11 18:16 | P.PNPSI_ITS ---
Subjective Subjective Date of Service: 01/11/24 Reason For Visit: Unspecified Bipolar Interim History: Met with patient; discussed with team Patient did not sleep last night. Also found to have smeared feces on his bed and toilet seat; still intermittently blurting out inappropriate sexual remarks however less so and overall seems more calm. Production Technician discussed this with him, how he works at [employer] and there, he does not make such comments; patient volunteered that he needs to start being more appropriate. He thanked database report writer for being his fitness teacher; database report writer reminded him that database report writer is his physician in the hospital but patient continued to say he knew database report writer from middle school... Mental Status Exam Mental Status Exam Narrative: Pt is alert and oriented; behavior is a little improved but still disorganized, pacing, intermittently making inappropriate remarks (but less so and no longer yelling;) overall seems more polite, cooperative and is more easily redirected; still sometimes disrobing... patient is not in distress; dressed in hospital attire, unkempt; mood is described as good and affect blunted or constricted; eye contact limited (legally blind); Speech is monotone, sometimes loud; normal rate; not pressured; mild to moderate psychomotor agitation present; thought process is concrete, goal directed; Thought content is on what he wants at the moment; some delusional thinking expressed; denies any SI/HI. Positive for AH and internally preoccupied; Patients insight and judgment impaired. Diagnostics Vital Signs (24Hr): Vital Signs - 24 hr 01/10/24 19:39 01/11/24 08:00 01/11/24 08:56 Temperature 98.5 F 98.2 F Pulse Rate 97 101 H Respiratory Rate 16 Blood Pressure 110/66 123/84 123/84 Pulse Oximetry 99 97 Oxygen Delivery Method Room Air Room Air BMI result Body Mass Index 35.8 Labs 01/08/24 15:03 01/11/24 08:53 Labs: Laboratory Results - last 48 hr 01/11/24 08:53 BUN 13 Creatinine 0.96 Estim Creat Clear Calc 124.1 Estimated GFR > 60 TSH 1.14 [place] 0.91 Medications Medications Current Medications Acetaminophen (Acetaminophen 325 Mg Tablet) 975 mg PO Q8H PRN PRN Reason: Analgesia Al Hydroxide/Mg Hydroxide (Magnesium Hydrox/Alum Hydrox 30 Ml Oral.Susp) 30 ml PO Q6H PRN PRN Reason: Heartburn/Nausea Chlorpromazine HCl 200 mg/ (Chlorpromazine HCl 25 mg) 225 mg PO BID [facility] Last Admin: 01/11/24 08:54 Dose: 225 mg Chlorpromazine HCl (Chlorpromazine Hcl 100 Mg Tablet) 100 mg PO BID PRN PRN Reason: agitation Last Admin: 01/10/24 22:28 Dose: 100 mg Clonidine HCl (Clonidine Hcl 0.1 Mg Tablet) 0.1 mg PO BID [facility]; Protocol Last Admin: 01/11/24 08:56 Dose: 0.1 mg Hydroxyzine HCl (Hydroxyzine Hcl 25 Mg Tablet) 25 mg PO Q6H PRN PRN Reason: Anxiety Last Admin: 01/11/24 04:22 Dose: 25 mg Levothyroxine Sodium (Levothyroxine Sodium 25 Mcg Tablet) 25 mcg PO DAILY@0600 [facility] Last Admin: 01/11/24 06:22 Dose: 25 mcg [place] Carbonate ([place] Carbonate Er 300 Mg Tablet.Er) 1,200 mg PO BEDTIME [facility] Last Admin: 01/10/24 21:17 Dose: 1,200 mg Magnesium Hydroxide (Milk Of Magnesia 30 Ml Oral.Susp) 30 ml PO DAILY PRN PRN Reason: Constipation Metformin HCl (Metformin Hcl 850 Mg Tablet) 850 mg PO BID [facility] Last Admin: 01/11/24 08:56 Dose: 850 mg Nicotine Polacrilex (Nicotine Polacrilex 2 Mg Gum) 4 mg BUCCAL Q2H PRN PRN Reason: Nicotine Cravings Olanzapine (Olanzapine Odt 10 Mg Tab.Rapdis) 10 mg TRANSLINGU DAILY PRN PRN Reason: psychosis Last Admin: 01/11/24 06:22 Dose: 10 mg Olanzapine (Olanzapine Odt 10 Mg Tab.Rapdis) 20 mg TRANSLINGU DAILY [facility] Last Admin: 01/11/24 08:56 Dose: 20 mg Trazodone HCl (Trazodone Hcl 50 Mg Tablet) 50 mg PO BEDTIME MRX1 PRN PRN Reason: Insomnia Last Admin: 01/10/24 22:28 Dose: 50 mg Vitamin D (Cholecalciferol (Vitamin D3) 25 Mcg Tablet) 25 mcg PO DAILY [facility] Last Admin: 01/11/24 08:56 Dose: 25 mcg Allergies Allergies Allergy/AdvReac Type Severity Reaction Status Date / Time No Known Allergies Allergy Verified 01/07/24 18:59 Assessment & Plan Assessment & Plan (1) Schizophrenia, chronic condition: Status: Acute Code(s): F20.9 - Schizophrenia, unspecified (2) Hypothyroidism: Status: Acute Code(s): E03.9 - Hypothyroidism, unspecified (3) Type 2 diabetes mellitus: Status: Acute Code(s): E11.9 - Type 2 diabetes mellitus without complications Plan 23 yo with extensive hx of psychiatric conditions - unclear guardianship or HCP, living in [facility] acute decompensation of disorder- Hospital course: 01/07 more calm after olanzapine 20mg, today - ? if lower chlorpromazine prns- , got ekg and follow up lab I had ordered 01/08 Over the weekend, patient louder, naked in the hallway and shouting violent threats towards staff; lost privilege of using walking cane. Overnight little sleep, only 3 hours Today, patient still walking up and down the [place] and Intermittently yelling or saying various provocative statements such as the N word towards staff; yelled a genital epithet toward staff/peer; other sexual comments; however, he seems to be more verbally redirectable and has not made any verbal threats so far. Still intermittently disrobing. -Production Technician asked why he would make these provocative statements or comments; patient says I see images... Images of snow on the roof, reindeer, bright lights... He also says I yell out loud what I hear... On inquiry patient denies auditory hallucinations and recalibrates to say he yells what his mind is thinking. He says medications help and that they seem to calm him down. During one-to-one conversation patient calm, even polite with database report writer, answering questions as asked without much elaboration. 01/09 Patient remains disorganized. He is still pacing the [place], intermittently saying inappropriate sexual remarks but he is no longer yelling them and is noticeably more polite and deferential, more easily redirected. Still moments of disrobing. 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 At baseline no psychotic symptoms present -slept some last night -database report writer discussed patients baseline functioning and patient agreed to stay longer for more stabilization; sign CV -looks like Zyprexa was recently started at ED; obtained home medication regimen from sn[facility] which includes: lithium ER 600 mg b.i.d. Thorazine to 225 mg b.i.d. Topamax 50 mg b.i.d. -continue current regimen for now; will likely add Topamax 01/10 patient remains disorganized with same behaviors however he is overall less intense, more polite and more easily redirectable. Some insight in that he agrees he needs to stop making inappropriate comments, though not sure if he is capable of this yet. -lithium level WNL; associated labs WNL -will restart Topamax which is his home medication -Will switch Thorazine, which was started at a recent hospitalization, to bedtime since he did not sleep last night. This point will otherwise continue current regimen as patient seems to be slowly improving. Plan: CV Q 15 minute checks Continue Thorazine to 225 mg b.i.d. Continue Zyprexa 20 mg BEDtime (switched from daily) Continue lithium ER 1200 mg, but make a q.h.s. (rather than 600 mg b.i.d.to help with poor sleep) Continue clonidine 0.1 mg b.i.d. Continue levothyroxine 25 mcg daily Continue metformin 850 mg b.i.d. Patient has Zyprexa 10 mg daily p.r.n. Thorazine 100 mg b.i.d. p.r.n. Patient educated on: diagnosis, medication risk/benefits and therapeutic strategies Informed Consent: understands, does not understand and further education needed Reason for continued inpatient stay Substantial Risk for: inability to function Time Spent With Patient Time: Total time managing care of this patient today ____ minutes.
[2024-01-11 19:55] VITALS: BP 138/70; PULSE 107; RESP 14; TEMP 36.6; O2SAT 97
[2024-01-11] MEDS: Lithium Carbonate ER 300 MG TABLET.ER 1200 MG PO (22:42)
[2024-01-11] MEDS: traZODone HCL 50 MG TABLET PO (22:42)
[2024-01-11] MEDS: Topiramate 25 MG TABLET 50 MG PO (22:42)
--- NOTE | 2024-01-12 09:54 | P.PNPSI_ITS ---
Subjective Subjective Date of Service: 01/12/24 Reason For Visit: Unspecified Bipolar Interim History: Met with patient; discussed with team Patient continues on 1:1 due to visual impairment and inappropriate behavior. He continues disorganized in his thought process. Disinhibited. Asking this examiner what are you thankful for [Thanksgiving] He says he feels more calm. Stable. Happy it's Thanksgiving. Denies SI/AVH. Some sexually inappropriate behavior remains. Review of Systems Review of Systems psychomotor agitation- pacing halls legally blind- didn't know there was water in room he is staying in - showed him where it was co thirst Yes all other systems are reviewed and are negative Mental Status Exam Mental Status Exam Narrative: Pt is alert and oriented; behavior is a little improved but still disorganized, pacing, intermittently making inappropriate remarks (but less so and no longer yelling;) overall seems more polite, cooperative and is more easily redirected; still sometimes disrobing... patient is not in distress; dressed in hospital attire, unkempt; mood is described as good and affect blunted or constricted; eye contact limited (legally blind); Speech is monotone, sometimes loud; normal rate; not pressured; mild to moderate psychomotor agitation present; thought process is concrete, goal directed; Thought content is on what he wants at the moment; some delusional thinking expressed; denies any SI/HI. Positive for AH and internally preoccupied; Patients insight and judgment impaired. Patient Appearance: Disheveled, Perspiring and Unkempt Patient Orientation: Person and Place Level of Consciousness: Awake Patient Behavior: Restless, Distractible, Impulsive and Poor Eye Contact Mood Description: Apathetic Affect Description: Labile Patient Cognition Impaired: No Ability to Follow Directions: Poor Speech Pattern: Mumbled Diagnostics Vital Signs (24Hr): Vital Signs - 24 hr 01/11/24 19:55 Temperature 97.9 F Pulse Rate 107 H Respiratory Rate 14 Blood Pressure 138/70 Pulse Oximetry 97 Oxygen Delivery Method Room Air BMI result Body Mass Index 35.8 Labs 01/08/24 15:03 01/11/24 08:53 Labs: Laboratory Results - last 48 hr 01/11/24 08:53 BUN 13 Creatinine 0.96 Estim Creat Clear Calc 124.1 Estimated GFR > 60 TSH 1.14 [place] 0.91 Medications Medications Current Medications Acetaminophen (Acetaminophen 325 Mg Tablet) 975 mg PO Q8H PRN PRN Reason: Analgesia Al Hydroxide/Mg Hydroxide (Magnesium Hydrox/Alum Hydrox 30 Ml Oral.Susp) 30 ml PO Q6H PRN PRN Reason: Heartburn/Nausea Chlorpromazine HCl 200 mg/ (Chlorpromazine HCl 25 mg) 225 mg PO BID [facility] Last Admin: 01/11/24 22:42 Dose: 225 mg Chlorpromazine HCl (Chlorpromazine Hcl 100 Mg Tablet) 100 mg PO BID PRN PRN Reason: agitation Last Admin: 01/10/24 22:28 Dose: 100 mg Clonidine HCl (Clonidine Hcl 0.1 Mg Tablet) 0.1 mg PO BID [facility]; Protocol Last Admin: 01/11/24 22:42 Dose: 0.1 mg Hydroxyzine HCl (Hydroxyzine Hcl 25 Mg Tablet) 25 mg PO Q6H PRN PRN Reason: Anxiety Last Admin: 01/11/24 22:42 Dose: 25 mg Levothyroxine Sodium (Levothyroxine Sodium 25 Mcg Tablet) 25 mcg PO DAILY@0600 [facility] Last Admin: 01/11/24 06:22 Dose: 25 mcg [place] Carbonate ([place] Carbonate Er 300 Mg Tablet.Er) 1,200 mg PO BEDTIME [facility] Last Admin: 01/11/24 22:42 Dose: 1,200 mg Magnesium Hydroxide (Milk Of Magnesia 30 Ml Oral.Susp) 30 ml PO DAILY PRN PRN Reason: Constipation Metformin HCl (Metformin Hcl 850 Mg Tablet) 850 mg PO BID [facility] Last Admin: 01/11/24 22:42 Dose: 850 mg Nicotine Polacrilex (Nicotine Polacrilex 2 Mg Gum) 4 mg BUCCAL Q2H PRN PRN Reason: Nicotine Cravings Olanzapine (Olanzapine Odt 10 Mg Tab.Rapdis) 10 mg TRANSLINGU DAILY PRN PRN Reason: psychosis Last Admin: 01/11/24 06:22 Dose: 10 mg Olanzapine (Olanzapine Odt 10 Mg Tab.Rapdis) 20 mg TRANSLINGU BEDTIME [facility] Topiramate (Topiramate 25 Mg Tablet) 50 mg PO BID [facility] Last Admin: 01/11/24 22:42 Dose: 50 mg Trazodone HCl (Trazodone Hcl 50 Mg Tablet) 50 mg PO BEDTIME MRX1 PRN PRN Reason: Insomnia Last Admin: 01/11/24 22:42 Dose: 50 mg Vitamin D (Cholecalciferol (Vitamin D3) 25 Mcg Tablet) 25 mcg PO DAILY [facility] Last Admin: 01/11/24 08:56 Dose: 25 mcg Allergies Allergies Allergy/AdvReac Type Severity Reaction Status Date / Time No Known Allergies Allergy Verified 01/07/24 18:59 Assessment & Plan Assessment & Plan (1) Schizophrenia, chronic condition: Status: Acute Code(s): F20.9 - Schizophrenia, unspecified (2) Hypothyroidism: Status: Acute Code(s): E03.9 - Hypothyroidism, unspecified (3) Type 2 diabetes mellitus: Status: Acute Code(s): E11.9 - Type 2 diabetes mellitus without complications Plan 23 yo with extensive hx of psychiatric conditions - unclear guardianship or HCP, living in nursing home acute decompensation of disorder- Hospital course: 01/07 more calm after olanzapine 20mg, today - ? if lower chlorpromazine prns- , got ekg and follow up lab I had ordered 01/08 Over the weekend, patient louder, naked in the hallway and shouting violent threats towards staff; lost privilege of using walking cane. Overnight little sleep, only 3 hours Today, patient still walking up and down the [place] and Intermittently yelling or saying various provocative statements such as the N word towards staff; yelled a genital epithet toward staff/peer; other sexual comments; however, he seems to be more verbally redirectable and has not made any verbal threats so far. Still intermittently disrobing. -Portfolio Director asked why he would make these provocative statements or comments; patient says I see images... Images of snow on the roof, reindeer, bright lights... He also says I yell out loud what I hear... On inquiry patient denies auditory hallucinations and recalibrates to say he yells what his mind is thinking. He says medications help and that they seem to calm him down. During one-to-one conversation patient calm, even polite with specification writer, answering questions as asked without much elaboration. 01/09 Patient remains disorganized. He is still pacing the [place], intermittently saying inappropriate sexual remarks but he is no longer yelling them and is noticeably more polite and deferential, more easily redirected. Still moments of disrobing. 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 At baseline no psychotic symptoms present -slept some last night -specification writer discussed patients baseline functioning and patient agreed to stay longer for more stabilization; sign CV -looks like Zyprexa was recently started at ED; obtained home medication regimen from nursing home which includes: lithium ER 600 mg b.i.d. Thorazine to 225 mg b.i.d. Topamax 50 mg b.i.d. -continue current regimen for now; will likely add Topamax 01/10 patient remains disorganized with same behaviors however he is overall less intense, more polite and more easily redirectable. Some insight in that he agrees he needs to stop making inappropriate comments, though not sure if he is capable of this yet. -lithium level WNL; associated labs WNL -will restart Topamax which is his home medication -Will switch Thorazine, which was started at a recent hospitalization, to bedtime since he did not sleep last night. This point will otherwise continue current regimen as patient seems to be slowly improving. 01/11: Remains delusional and disorganized/disinhibited. Continue current management and treatment plan and monitoring response to medications Plan: CV Q 15 minute checks Continue Thorazine to 225 mg b.i.d. Continue Zyprexa 20 mg BEDtime (switched from daily) Continue lithium ER 1200 mg, but make a q.h.s. (rather than 600 mg b.i.d.to help with poor sleep) Continue clonidine 0.1 mg b.i.d. Continue levothyroxine 25 mcg daily Continue metformin 850 mg b.i.d. Patient has Zyprexa 10 mg daily p.r.n. Thorazine 100 mg b.i.d. p.r.n. Reason for continued inpatient stay Substantial Risk for: harm to others, inability to function and rapid decompensation Time Spent With Patient Time: Total time managing care of this patient today ____ minutes.
[2024-01-12] MEDS: Topiramate 25 MG TABLET 50 MG PO ×2 (10:30→21:07)
[2024-01-12] MEDS: metFORMIN HCl 850 MG TABLET PO ×2 (10:30→21:05)
[2024-01-12] MEDS: Levothyroxine Sodium 25 MCG TABLET PO (10:30)
[2024-01-12] MEDS: CHLORPROMAZINE 225 MG PO ×2 (10:30→21:05)
[2024-01-12] MEDS: Cholecalciferol (Vitamin D3) 25 MCG TABLET PO (10:30)
[2024-01-12 20:00] VITALS: BP 127/86; PULSE 127; O2SAT 98
[2024-01-12 21:06] VITALS: BP 127/86
[2024-01-12] MEDS: traZODone HCL 50 MG TABLET PO ×2 (21:06→23:12)
[2024-01-12] MEDS: cloNIDine HCL 0.1 MG TABLET PO (21:06)
[2024-01-12] MEDS: OLANZapine ODT 10 MG TAB.RAPDIS 20 MG TRANSLINGU (21:06)
[2024-01-12] MEDS: Lithium Carbonate ER 300 MG TABLET.ER 1200 MG PO (21:07)
[2024-01-13] MEDS: Levothyroxine Sodium 25 MCG TABLET PO (06:49)
[2024-01-13 08:00] VITALS: BP 148/75; PULSE 116; TEMP 36.7; O2SAT 96
[2024-01-13 08:18] VITALS: BP 148/75
[2024-01-13] MEDS: Topiramate 25 MG TABLET 50 MG PO ×2 (08:18→22:08)
[2024-01-13] MEDS: metFORMIN HCl 850 MG TABLET PO ×2 (08:18→22:08)
[2024-01-13] MEDS: cloNIDine HCL 0.1 MG TABLET PO ×2 (08:18→22:08)
[2024-01-13] MEDS: CHLORPROMAZINE 225 MG PO ×2 (08:19→22:09)
[2024-01-13] MEDS: Cholecalciferol (Vitamin D3) 25 MCG TABLET PO (08:19)
--- NOTE | 2024-01-13 15:03 | HO.PSYCHPN ---
Subjective Subjective Date of Service: 01/13/24 Reason For Visit: Unspecified Bipolar Interim History: Pt is in behavioral control today with less disinhibition. He engages yet is tangential in content. Delusions are still present Per team, mother reports history of aggression, HI, and attempts to strangle others. These symptoms are currently not present Medication Compliance: Yes Side effects from medications: No Attending Groups: No Review of Systems Acute medical concerns: No Review of Systems Review of Systems Denies Yes all other systems are reviewed and are negative Mental Status Exam Mental Status Exam Patient Appearance: Appropriate Patient Orientation: Person and Place Level of Consciousness: Alert Patient Behavior: Guarded, Talkative and Good Eye Contact Mood Description: Apprehensive Affect Description: Apprehensive Patient Cognition Impaired: No Ability to Follow Directions: Fair Speech Pattern: Spontaneous Speech Memory Description: Episodic Impaired Delusions: Paranoid Ideation and Present Thought Process: Distracted Thought Content: positive for Circumstantial Depressive Symptoms: Difficulty Concentrating Abnormal Motor Activity Signs and Symptoms: Restlessness Judgement: Poor Diagnostics Vital Signs (24Hr): Vital Signs - 24 hr 01/12/24 20:00 01/12/24 21:06 01/13/24 08:00 Temperature 98.0 F Pulse Rate 127 H 116 H Blood Pressure 127/86 127/86 148/75 H Pulse Oximetry 98 96 Oxygen Delivery Method Room Air Room Air 01/13/24 08:18 Temperature Pulse Rate Blood Pressure 148/75 H Pulse Oximetry Oxygen Delivery Method BMI result Body Mass Index 35.8 Labs 01/08/24 15:03 01/11/24 08:53 Medications Medications Current Medications Acetaminophen (Acetaminophen 325 Mg Tablet) 975 mg PO Q8H PRN PRN Reason: Analgesia Al Hydroxide/Mg Hydroxide (Magnesium Hydrox/Alum Hydrox 30 Ml Oral.Susp) 30 ml PO Q6H PRN PRN Reason: Heartburn/Nausea Chlorpromazine HCl 200 mg/ (Chlorpromazine HCl 25 mg) 225 mg PO BID [facility] Last Admin: 01/13/24 08:19 Dose: 225 mg Chlorpromazine HCl (Chlorpromazine Hcl 100 Mg Tablet) 100 mg PO BID PRN PRN Reason: agitation Last Admin: 01/10/24 22:28 Dose: 100 mg Clonidine HCl (Clonidine Hcl 0.1 Mg Tablet) 0.1 mg PO BID [facility]; Protocol Last Admin: 01/13/24 08:18 Dose: 0.1 mg Hydroxyzine HCl (Hydroxyzine Hcl 25 Mg Tablet) 25 mg PO Q6H PRN PRN Reason: Anxiety Last Admin: 01/11/24 22:42 Dose: 25 mg Levothyroxine Sodium (Levothyroxine Sodium 25 Mcg Tablet) 25 mcg PO DAILY@0600 [facility] Last Admin: 01/13/24 06:49 Dose: 25 mcg [place] Carbonate ([place] Carbonate Er 300 Mg Tablet.Er) 1,200 mg PO BEDTIME [facility] Last Admin: 01/12/24 21:07 Dose: 1,200 mg Magnesium Hydroxide (Milk Of Magnesia 30 Ml Oral.Susp) 30 ml PO DAILY PRN PRN Reason: Constipation Metformin HCl (Metformin Hcl 850 Mg Tablet) 850 mg PO BID [facility] Last Admin: 01/13/24 08:18 Dose: 850 mg Nicotine Polacrilex (Nicotine Polacrilex 2 Mg Gum) 4 mg [place] Q2H PRN PRN Reason: Nicotine Cravings Olanzapine (Olanzapine Odt 10 Mg Tab.Rapdis) 10 mg TRANSLINGU DAILY PRN PRN Reason: psychosis Last Admin: 01/11/24 06:22 Dose: 10 mg Olanzapine (Olanzapine Odt 10 Mg Tab.Rapdis) 20 mg TRANSLINGU BEDTIME [facility] Last Admin: 01/12/24 21:06 Dose: 20 mg Topiramate (Topiramate 25 Mg Tablet) 50 mg PO BID [facility] Last Admin: 01/13/24 08:18 Dose: 50 mg Trazodone HCl (Trazodone Hcl 50 Mg Tablet) 50 mg PO BEDTIME MRX1 PRN PRN Reason: Insomnia Last Admin: 01/12/24 23:12 Dose: 50 mg Vitamin D (Cholecalciferol (Vitamin D3) 25 Mcg Tablet) 25 mcg PO DAILY [facility] Last Admin: 01/13/24 08:19 Dose: 25 mcg Allergies Allergies Allergy/AdvReac Type Severity Reaction Status Date / Time No Known Allergies Allergy Verified 01/07/24 18:59 Assessment & Plan Assessment & Plan (1) Schizophrenia, chronic condition: Status: Acute Code(s): F20.9 - Schizophrenia, unspecified (2) Hypothyroidism: Status: Acute Code(s): E03.9 - Hypothyroidism, unspecified (3) Type 2 diabetes mellitus: Status: Acute Code(s): E11.9 - Type 2 diabetes mellitus without complications Plan 23 yo with extensive hx of psychiatric conditions - unclear guardianship or HCP, living in custodial acute decompensation of disorder- Hospital course: 01/07 more calm after olanzapine 20mg, today - ? if lower chlorpromazine prns- , got ekg and follow up lab I had ordered 01/08 Over the weekend, patient louder, naked in the hallway and shouting violent threats towards staff; lost privilege of using walking cane. Overnight little sleep, only 3 hours Today, patient still walking up and down the [place] and Intermittently yelling or saying various provocative statements such as the N word towards staff; yelled a genital epithet toward staff/peer; other sexual comments; however, he seems to be more verbally redirectable and has not made any verbal threats so far. Still intermittently disrobing. -Hydraulic Controls Technician asked why he would make these provocative statements or comments; patient says I see images... Images of snow on the roof, reindeer, bright lights... He also says I yell out loud what I hear... On inquiry patient denies auditory hallucinations and recalibrates to say he yells what his mind is thinking. He says medications help and that they seem to calm him down. During one-to-one conversation patient calm, even polite with underwriter solicitation director, answering questions as asked without much elaboration. 01/09 Patient remains disorganized. He is still pacing the [place], intermittently saying inappropriate sexual remarks but he is no longer yelling them and is noticeably more polite and deferential, more easily redirected. Still moments of disrobing. 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 At baseline no psychotic symptoms present -slept some last night -underwriter solicitation director discussed patients baseline functioning and patient agreed to stay longer for more stabilization; sign CV -looks like Zyprexa was recently started at ED; obtained home medication regimen from custodial which includes: lithium ER 600 mg b.i.d. Thorazine to 225 mg b.i.d. Topamax 50 mg b.i.d. -continue current regimen for now; will likely add Topamax 01/10 patient remains disorganized with same behaviors however he is overall less intense, more polite and more easily redirectable. Some insight in that he agrees he needs to stop making inappropriate comments, though not sure if he is capable of this yet. -lithium level WNL; associated labs WNL -will restart Topamax which is his home medication -Will switch Thorazine, which was started at a recent hospitalization, to bedtime since he did not sleep last night. This point will otherwise continue current regimen as patient seems to be slowly improving. 01/11: Remains delusional and disorganized/disinhibited. Continue current management and treatment plan and monitoring response to medications 01/12: Continue current plan of care. Plan: CV Q 15 minute checks Continue Thorazine to 225 mg b.i.d. Continue Zyprexa 20 mg BEDtime (switched from daily) Continue lithium ER 1200 mg, but make a q.h.s. (rather than 600 mg b.i.d.to help with poor sleep) Continue clonidine 0.1 mg b.i.d. Continue levothyroxine 25 mcg daily Continue metformin 850 mg b.i.d. Patient has Zyprexa 10 mg daily p.r.n. Thorazine 100 mg b.i.d. p.r.n. Reason for continued inpatient stay Substantial Risk for: harm to others, inability to function and rapid decompensation Time Spent With Patient Time: Total time managing care of this patient today ____ minutes.
[2024-01-13 20:00] VITALS: BP 131/69; PULSE 91; RESP 16; TEMP 36.8; O2SAT 97
[2024-01-13] MEDS: traZODone HCL 50 MG TABLET PO (22:08)
[2024-01-13] MEDS: OLANZapine ODT 10 MG TAB.RAPDIS 20 MG TRANSLINGU (22:09)
[2024-01-13] MEDS: Lithium Carbonate ER 300 MG TABLET.ER 1200 MG PO (22:09)
[2024-01-14 09:12] VITALS: BP 137/74
[2024-01-14] MEDS: CHLORPROMAZINE 225 MG PO ×2 (09:12→21:24)
[2024-01-14] MEDS: cloNIDine HCL 0.1 MG TABLET PO ×2 (09:12→21:24)
[2024-01-14] MEDS: Topiramate 25 MG TABLET 50 MG PO ×2 (09:12→21:24)
[2024-01-14] MEDS: metFORMIN HCl 850 MG TABLET PO ×2 (09:13→21:24)
[2024-01-14] MEDS: Levothyroxine Sodium 25 MCG TABLET PO (09:13)
--- NOTE | 2024-01-14 10:42 | P.PNPSI_ITS ---
Subjective Subjective Date of Service: 01/14/24 Reason For Visit: Unspecified Bipolar Interim History: Patient remains psychotic and disorganized but in behavioral control and not overtly agitated. Patient says I am trying to get my head straight. I want there to be peace on earth, in space. Peace between earth and space. Earth and the ocean.. I am trying to help the world be in peace. Delusions are still present. Review of Systems Review of Systems Denies Yes all other systems are reviewed and are negative Mental Status Exam Mental Status Exam Narrative: Pt is alert and oriented; behavior is a little improved but still disorganized, pacing, intermittently making inappropriate remarks (but less so and no longer yelling;) overall seems more polite, cooperative and is more easily redirected; still sometimes disrobing... patient is not in distress; dressed in hospital attire, unkempt; mood is described as good and affect blunted or constricted; eye contact limited (legally blind); Speech is monotone, sometimes loud; normal rate; not pressured; mild to moderate psychomotor agitation present; thought process is concrete, goal directed; Thought content is on what he wants at the moment; some delusional thinking expressed; denies any SI/HI. Positive for AH and internally preoccupied; Patients insight and judgment impaired. Patient Appearance: Appropriate Patient Orientation: Person and Place Level of Consciousness: Alert Patient Behavior: Guarded, Talkative and Good Eye Contact Mood Description: Apprehensive Affect Description: Apprehensive Patient Cognition Impaired: No Ability to Follow Directions: Fair Speech Pattern: Spontaneous Speech Memory Description: Episodic Impaired Diagnostics Vital Signs (24Hr): Vital Signs - 24 hr 01/13/24 20:00 01/14/24 09:12 Temperature 98.3 F Pulse Rate 91 Respiratory Rate 16 Blood Pressure 131/69 137/74 Pulse Oximetry 97 Oxygen Delivery Method Room Air BMI result Body Mass Index 35.8 Labs 01/08/24 15:03 01/11/24 08:53 Medications Medications Current Medications Acetaminophen (Acetaminophen 325 Mg Tablet) 975 mg PO Q8H PRN PRN Reason: Analgesia Al Hydroxide/Mg Hydroxide (Magnesium Hydrox/Alum Hydrox 30 Ml Oral.Susp) 30 ml PO Q6H PRN PRN Reason: Heartburn/Nausea Chlorpromazine HCl 200 mg/ (Chlorpromazine HCl 25 mg) 225 mg PO BID [facility] Last Admin: 01/14/24 09:12 Dose: 225 mg Chlorpromazine HCl (Chlorpromazine Hcl 100 Mg Tablet) 100 mg PO BID PRN PRN Reason: agitation Last Admin: 01/10/24 22:28 Dose: 100 mg Clonidine HCl (Clonidine Hcl 0.1 Mg Tablet) 0.1 mg PO BID [facility]; Protocol Last Admin: 01/14/24 09:12 Dose: 0.1 mg Hydroxyzine HCl (Hydroxyzine Hcl 25 Mg Tablet) 25 mg PO Q6H PRN PRN Reason: Anxiety Last Admin: 01/11/24 22:42 Dose: 25 mg Levothyroxine Sodium (Levothyroxine Sodium 25 Mcg Tablet) 25 mcg PO DAILY@0600 [facility] Last Admin: 01/14/24 09:13 Dose: 25 mcg [place] Carbonate ([place] Carbonate Er 300 Mg Tablet.Er) 1,200 mg PO BEDTIME [facility] Last Admin: 01/13/24 22:09 Dose: 1,200 mg Magnesium Hydroxide (Milk Of Magnesia 30 Ml Oral.Susp) 30 ml PO DAILY PRN PRN Reason: Constipation Metformin HCl (Metformin Hcl 850 Mg Tablet) 850 mg PO BID [facility] Last Admin: 01/14/24 09:13 Dose: 850 mg Nicotine Polacrilex (Nicotine Polacrilex 2 Mg Gum) 4 mg [place] Q2H PRN PRN Reason: Nicotine Cravings Olanzapine (Olanzapine Odt 10 Mg Tab.Rapdis) 10 mg TRANSLINGU DAILY PRN PRN Reason: psychosis Last Admin: 01/11/24 06:22 Dose: 10 mg Olanzapine (Olanzapine Odt 10 Mg Tab.Rapdis) 20 mg TRANSLINGU BEDTIME [facility] Last Admin: 01/13/24 22:09 Dose: 20 mg Topiramate (Topiramate 25 Mg Tablet) 50 mg PO BID [facility] Last Admin: 01/14/24 09:12 Dose: 50 mg Trazodone HCl (Trazodone Hcl 50 Mg Tablet) 50 mg PO BEDTIME MRX1 PRN PRN Reason: Insomnia Last Admin: 01/13/24 22:08 Dose: 50 mg Vitamin D (Cholecalciferol (Vitamin D3) 25 Mcg Tablet) 25 mcg PO DAILY [facility] Last Admin: 01/14/24 10:28 Dose: Not Given Allergies Allergies Allergy/AdvReac Type Severity Reaction Status Date / Time No Known Allergies Allergy Verified 01/07/24 18:59 Assessment & Plan Assessment & Plan (1) Schizophrenia, chronic condition: Status: Acute Code(s): F20.9 - Schizophrenia, unspecified (2) Hypothyroidism: Status: Acute Code(s): E03.9 - Hypothyroidism, unspecified (3) Type 2 diabetes mellitus: Status: Acute Code(s): E11.9 - Type 2 diabetes mellitus without complications Plan 23 yo with extensive hx of psychiatric conditions - unclear guardianship or HCP, living in prison acute decompensation of disorder- Hospital course: 01/07 more calm after olanzapine 20mg, today - ? if lower chlorpromazine prns- , got ekg and follow up lab I had ordered 01/08 Over the weekend, patient louder, naked in the hallway and shouting violent threats towards staff; lost privilege of using walking cane. Overnight little sleep, only 3 hours Today, patient still walking up and down the [place] and Intermittently yelling or saying various provocative statements such as the N word towards staff; yelled a genital epithet toward staff/peer; other sexual comments; however, he seems to be more verbally redirectable and has not made any verbal threats so far. Still intermittently disrobing. -Investigative Writer asked why he would make these provocative statements or comments; patient says I see images... Images of snow on the roof, reindeer, bright lights... He also says I yell out loud what I hear... On inquiry patient denies auditory hallucinations and recalibrates to say he yells what his mind is thinking. He says medications help and that they seem to calm him down. During one-to-one conversation patient calm, even polite with physician underwriter, answering questions as asked without much elaboration. 01/09 Patient remains disorganized. He is still pacing the [place], intermittently saying inappropriate sexual remarks but he is no longer yelling them and is noticeably more polite and deferential, more easily redirected. Still moments of disrobing. 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 At baseline no psychotic symptoms present -slept some last night -physician underwriter discussed patients baseline functioning and patient agreed to stay longer for more stabilization; sign CV -looks like Zyprexa was recently started at ED; obtained [facility] medication regimen from [facility] which includes: lithium ER 600 mg b.i.d. Thorazine to 225 mg b.i.d. Topamax 50 mg b.i.d. -continue current regimen for now; will likely add Topamax 01/10 patient remains disorganized with same behaviors however he is overall less intense, more polite and more easily redirectable. Some insight in that he agrees he needs to stop making inappropriate comments, though not sure if he is capable of this yet. -lithium level WNL; associated labs WNL -will restart Topamax which is his home medication -Will switch Thorazine, which was started at a recent hospitalization, to bedtime since he did not sleep last night. This point will otherwise continue current regimen as patient seems to be slowly improving. 01/11: Remains delusional and disorganized/disinhibited. Continue current management and treatment plan and monitoring response to medications 01/12: Continue current plan of care. 01/13: Continue current management and treatment plan. Improving but remains quite psychotic. Plan: CV Q 15 minute checks Continue Thorazine to 225 mg b.i.d. Continue Zyprexa 20 mg BEDtime (switched from daily) Continue lithium ER 1200 mg, but make a q.h.s. (rather than 600 mg b.i.d.to help with poor sleep) Continue clonidine 0.1 mg b.i.d. Continue levothyroxine 25 mcg daily Continue metformin 850 mg b.i.d. Patient has Zyprexa 10 mg daily p.r.n. Thorazine 100 mg b.i.d. p.r.n. Reason for continued inpatient stay Substantial Risk for: harm to others, inability to function and rapid decompensation Time Spent With Patient Time: Total time managing care of this patient today ____ minutes.
[2024-01-14 20:00] VITALS: BP 105/65; PULSE 96; RESP 16; TEMP 36.9; O2SAT 98
[2024-01-14] MEDS: traZODone HCL 50 MG TABLET PO (21:24)
[2024-01-14] MEDS: Lithium Carbonate ER 300 MG TABLET.ER 1200 MG PO (21:24)
[2024-01-14] MEDS: OLANZapine ODT 10 MG TAB.RAPDIS 20 MG TRANSLINGU (21:24)
[2024-01-15 07:53] VITALS: BP 107/64; PULSE 80; TEMP 36.4; O2SAT 99
[2024-01-15] MEDS: CHLORPROMAZINE 225 MG PO ×2 (08:31→22:48)
[2024-01-15] MEDS: Topiramate 25 MG TABLET 50 MG PO ×2 (08:32→22:46)
[2024-01-15] MEDS: Levothyroxine Sodium 25 MCG TABLET PO (08:32)
[2024-01-15] MEDS: metFORMIN HCl 850 MG TABLET PO ×2 (08:32→22:49)
[2024-01-15] MEDS: Cholecalciferol (Vitamin D3) 25 MCG TABLET PO (08:33)
[2024-01-15] MEDS: cloNIDine HCL 0.1 MG TABLET PO ×2 (08:33→22:49)
--- NOTE | 2024-01-15 09:14 | HO.PSYCHPN ---
Subjective Subjective Date of Service: 01/15/24 Reason For Visit: Unspecified Bipolar Interim History: Patient remains psychotic and disorganized but in behavioral control and not overtly agitated. He says I am helping people organize their thoughts. Some people see some and hear some. I help them bridge the gap and make the connection. When asked to clarify how he does that he said I will tell you some other time. He says I'm better. My thoughts are not racing anymore. I feel calm. Denies SI. Review of Systems Review of Systems Denies Yes all other systems are reviewed and are negative Mental Status Exam Mental Status Exam Narrative: Pt is alert and oriented; behavior is a little improved but still disorganized, pacing, intermittently making inappropriate remarks (but less so and no longer yelling;) overall seems more polite, cooperative and is more easily redirected; still sometimes disrobing... patient is not in distress; dressed in hospital attire, unkempt; mood is described as good and affect blunted or constricted; eye contact limited (legally blind); Speech is monotone, sometimes loud; normal rate; not pressured; mild to moderate psychomotor agitation present; thought process is concrete, goal directed; Thought content is on what he wants at the moment; some delusional thinking expressed; denies any SI/HI. Positive for AH and internally preoccupied; Patients insight and judgment impaired. Patient Appearance: Appropriate Patient Orientation: Person and Place Level of Consciousness: Alert Patient Behavior: Guarded, Talkative and Good Eye Contact Mood Description: Apprehensive Affect Description: Apprehensive Patient Cognition Impaired: No Ability to Follow Directions: Fair Speech Pattern: Spontaneous Speech Memory Description: Episodic Impaired Diagnostics Vital Signs (24Hr): Vital Signs - 24 hr 01/14/24 20:00 01/15/24 07:53 Temperature 98.4 F 97.5 F Pulse Rate 96 80 Respiratory Rate 16 Blood Pressure 105/65 107/64 Pulse Oximetry 98 99 Oxygen Delivery Method Room Air Room Air BMI result Body Mass Index 35.8 Labs 01/08/24 15:03 01/11/24 08:53 Medications Medications Current Medications Acetaminophen (Acetaminophen 325 Mg Tablet) 975 mg PO Q8H PRN PRN Reason: Analgesia Al Hydroxide/Mg Hydroxide (Magnesium Hydrox/Alum Hydrox 30 Ml Oral.Susp) 30 ml PO Q6H PRN PRN Reason: Heartburn/Nausea Chlorpromazine HCl 200 mg/ (Chlorpromazine HCl 25 mg) 225 mg PO BID [facility] Last Admin: 01/15/24 08:31 Dose: 225 mg Chlorpromazine HCl (Chlorpromazine Hcl 100 Mg Tablet) 100 mg PO BID PRN PRN Reason: agitation Last Admin: 01/10/24 22:28 Dose: 100 mg Clonidine HCl (Clonidine Hcl 0.1 Mg Tablet) 0.1 mg PO BID [facility]; Protocol Last Admin: 01/15/24 08:33 Dose: 0.1 mg Hydroxyzine HCl (Hydroxyzine Hcl 25 Mg Tablet) 25 mg PO Q6H PRN PRN Reason: Anxiety Last Admin: 01/11/24 22:42 Dose: 25 mg Levothyroxine Sodium (Levothyroxine Sodium 25 Mcg Tablet) 25 mcg PO DAILY@0600 [facility] Last Admin: 01/15/24 08:32 Dose: 25 mcg [place] Carbonate ([place] Carbonate Er 300 Mg Tablet.Er) 1,200 mg PO BEDTIME [facility] Last Admin: 01/14/24 21:24 Dose: 1,200 mg Magnesium Hydroxide (Milk Of Magnesia 30 Ml Oral.Susp) 30 ml PO DAILY PRN PRN Reason: Constipation Metformin HCl (Metformin Hcl 850 Mg Tablet) 850 mg PO BID [facility] Last Admin: 01/15/24 08:32 Dose: 850 mg Nicotine Polacrilex (Nicotine Polacrilex 2 Mg Gum) 4 mg BUCCAL Q2H PRN PRN Reason: Nicotine Cravings Olanzapine (Olanzapine Odt 10 Mg Tab.Rapdis) 10 mg TRANSLINGU DAILY PRN PRN Reason: psychosis Last Admin: 01/11/24 06:22 Dose: 10 mg Olanzapine (Olanzapine Odt 10 Mg Tab.Rapdis) 20 mg TRANSLINGU BEDTIME [facility] Last Admin: 01/14/24 21:24 Dose: 20 mg Topiramate (Topiramate 25 Mg Tablet) 50 mg PO BID [facility] Last Admin: 01/15/24 08:32 Dose: 50 mg Trazodone HCl (Trazodone Hcl 50 Mg Tablet) 50 mg PO BEDTIME MRX1 PRN PRN Reason: Insomnia Last Admin: 01/14/24 21:24 Dose: 50 mg Vitamin D (Cholecalciferol (Vitamin D3) 25 Mcg Tablet) 25 mcg PO DAILY [facility] Last Admin: 01/15/24 08:33 Dose: 25 mcg Allergies Allergies Allergy/AdvReac Type Severity Reaction Status Date / Time No Known Allergies Allergy Verified 01/07/24 18:59 Assessment & Plan Assessment & Plan (1) Schizophrenia, chronic condition: Status: Acute Code(s): F20.9 - Schizophrenia, unspecified (2) Hypothyroidism: Status: Acute Code(s): E03.9 - Hypothyroidism, unspecified (3) Type 2 diabetes mellitus: Status: Acute Code(s): E11.9 - Type 2 diabetes mellitus without complications Plan 23 yo with extensive hx of psychiatric conditions - unclear guardianship or HCP, living in retirement acute decompensation of disorder- Hospital course: 01/07 more calm after olanzapine 20mg, today - ? if lower chlorpromazine prns- , got ekg and follow up lab I had ordered 01/08 Over the weekend, patient louder, naked in the hallway and shouting violent threats towards staff; lost privilege of using walking cane. Overnight little sleep, only 3 hours Today, patient still walking up and down the [place] and Intermittently yelling or saying various provocative statements such as the N word towards staff; yelled a genital epithet toward staff/peer; other sexual comments; however, he seems to be more verbally redirectable and has not made any verbal threats so far. Still intermittently disrobing. -Pre Planning Advisor asked why he would make these provocative statements or comments; patient says I see images... Images of snow on the roof, reindeer, bright lights... He also says I yell out loud what I hear... On inquiry patient denies auditory hallucinations and recalibrates to say he yells what his mind is thinking. He says medications help and that they seem to calm him down. During one-to-one conversation patient calm, even polite with chief writer, answering questions as asked without much elaboration. 01/09 Patient remains disorganized. He is still pacing the [place], intermittently saying inappropriate sexual remarks but he is no longer yelling them and is noticeably more polite and deferential, more easily redirected. Still moments of disrobing. 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 At baseline no psychotic symptoms present -slept some last night -chief writer discussed patients baseline functioning and patient agreed to stay longer for more stabilization; sign CV -looks like Zyprexa was recently started at ED; obtained home medication regimen from retirement which includes: lithium ER 600 mg b.i.d. Thorazine to 225 mg b.i.d. Topamax 50 mg b.i.d. -continue current regimen for now; will likely add Topamax 01/10 patient remains disorganized with same behaviors however he is overall less intense, more polite and more easily redirectable. Some insight in that he agrees he needs to stop making inappropriate comments, though not sure if he is capable of this yet. -lithium level WNL; associated labs WNL -will restart Topamax which is his home medication -Will switch Thorazine, which was started at a recent hospitalization, to bedtime since he did not sleep last night. This point will otherwise continue current regimen as patient seems to be slowly improving. 01/11: Remains delusional and disorganized/disinhibited. Continue current management and treatment plan and monitoring response to medications 01/12: Continue current plan of care. 01/13: Continue current management and treatment plan. Improving but remains quite psychotic. 01/14: Continue current management and treatment plan. Improved but remains psychotic. Plan: CV Q 15 minute checks Continue Thorazine to 225 mg b.i.d. Continue Zyprexa 20 mg BEDtime (switched from daily) Continue lithium ER 1200 mg, but make a q.h.s. (rather than 600 mg b.i.d.to help with poor sleep) Continue clonidine 0.1 mg b.i.d. Continue levothyroxine 25 mcg daily Continue metformin 850 mg b.i.d. Patient has Zyprexa 10 mg daily p.r.n. Thorazine 100 mg b.i.d. p.r.n. Reason for continued inpatient stay Substantial Risk for: inability to function and rapid decompensation Time Spent With Patient Time: Total time managing care of this patient today ____ minutes.
[2024-01-15 20:00] VITALS: BP 136/86; PULSE 111; TEMP 37.1; O2SAT 99
[2024-01-15 22:45] VITALS: BP 126/64; PULSE 119; TEMP 36.9; O2SAT 97
[2024-01-15] MEDS: Lithium Carbonate ER 300 MG TABLET.ER 1200 MG PO (22:47)
[2024-01-15 22:49] VITALS: BP 126/64
[2024-01-15] MEDS: OLANZapine ODT 10 MG TAB.RAPDIS 20 MG TRANSLINGU (22:49)
[2024-01-15] MEDS: traZODone HCL 50 MG TABLET PO (22:50)
[2024-01-15] MEDS: hydrOXYzine HCL 25 MG TABLET PO (23:35)
[2024-01-16] MEDS: chlorproMAZINE HCl 100 MG TABLET PO (01:04)
[2024-01-16] MEDS: Levothyroxine Sodium 25 MCG TABLET PO (07:21)
[2024-01-16 08:00] VITALS: BP 116/77; PULSE 104; RESP 16; TEMP 36.8; O2SAT 96
--- NOTE | 2024-01-16 09:06 | P.PNPSI_ITS ---
Subjective Subjective Date of Service: 01/16/24 Reason For Visit: Unspecified Bipolar Interim History: Met with patient; discussed with team; reviewed chart Patient intermittently agitated over the weekend but overall remains more stable than on admission. Did not sleep last night. Making some delusional comments, that there was a bunch of [place] he is taking over something in the police were called... Patient tells blurb writer that he is still confused and says I feel like a child right now... Reports continued racing thoughts. Discussed medications and patient agrees to get on Depakote. Mental Status Exam Mental Status Exam Narrative: Pt is alert and oriented; behavior overall more calm and organized than on admission; no longer pacing. Still intermittently making inappropriate remarks but remains overall polite, cooperative and is easily redirected; no longer disrobing; patient is not in distress; dressed in hospital attire, unkempt; mood is described as confused and affect congruent, anxious; eye contact limited (legally blind); Speech is monotone, normal rate, volume and prosody; not pressured; mild psychomotor agitation present and not sleeping; thought process is concrete, goal directed; Thought content is on struggling with symptoms, with intermittent delusional thinking; denies any SI/HI. Positive for AH and internally preoccupied; Patients insight and judgment impaired though improved since admission. Diagnostics Vital Signs (24Hr): Vital Signs - 24 hr 01/15/24 20:00 01/15/24 22:45 01/15/24 22:49 Temperature 98.7 F 98.4 F Pulse Rate 111 H 119 H Respiratory Rate Blood Pressure 136/86 126/64 126/64 Pulse Oximetry 99 97 Oxygen Delivery Method Room Air Room Air 01/16/24 08:00 Temperature 98.2 F Pulse Rate 104 H Respiratory Rate 16 Blood Pressure 116/77 Pulse Oximetry 96 Oxygen Delivery Method Room Air BMI result Body Mass Index 35.8 Labs 01/08/24 15:03 01/17/24 09:23 Medications Medications Current Medications Acetaminophen (Acetaminophen 325 Mg Tablet) 975 mg PO Q8H PRN PRN Reason: Analgesia Al Hydroxide/Mg Hydroxide (Magnesium Hydrox/Alum Hydrox 30 Ml Oral.Susp) 30 ml PO Q6H PRN PRN Reason: Heartburn/Nausea Chlorpromazine HCl 200 mg/ (Chlorpromazine HCl 25 mg) 225 mg PO BID [facility] Last Admin: 01/15/24 22:48 Dose: 225 mg Chlorpromazine HCl (Chlorpromazine Hcl 100 Mg Tablet) 100 mg PO BID PRN PRN Reason: agitation Last Admin: 01/16/24 01:04 Dose: 100 mg Clonidine HCl (Clonidine Hcl 0.1 Mg Tablet) 0.1 mg PO BID [facility]; Protocol Last Admin: 01/15/24 22:49 Dose: 0.1 mg Hydroxyzine HCl (Hydroxyzine Hcl 25 Mg Tablet) 25 mg PO Q6H PRN PRN Reason: Anxiety Last Admin: 01/15/24 23:35 Dose: 25 mg Levothyroxine Sodium (Levothyroxine Sodium 25 Mcg Tablet) 25 mcg PO DAILY@0600 [facility] Last Admin: 01/16/24 07:21 Dose: 25 mcg [place] Carbonate ([place] Carbonate Er 300 Mg Tablet.Er) 1,200 mg PO BEDTIME [facility] Last Admin: 01/15/24 22:47 Dose: 1,200 mg Magnesium Hydroxide (Milk Of Magnesia 30 Ml Oral.Susp) 30 ml PO DAILY PRN PRN Reason: Constipation Metformin HCl (Metformin Hcl 850 Mg Tablet) 850 mg PO BID [facility] Last Admin: 01/15/24 22:49 Dose: 850 mg Nicotine Polacrilex (Nicotine Polacrilex 2 Mg Gum) 4 mg BUCCAL Q2H PRN PRN Reason: Nicotine Cravings Olanzapine (Olanzapine Odt 10 Mg Tab.Rapdis) 10 mg TRANSLINGU DAILY PRN PRN Reason: psychosis Last Admin: 01/11/24 06:22 Dose: 10 mg Olanzapine (Olanzapine Odt 10 Mg Tab.Rapdis) 20 mg TRANSLINGU BEDTIME [facility] Last Admin: 01/15/24 22:49 Dose: 20 mg Topiramate (Topiramate 25 Mg Tablet) 50 mg PO BID [facility] Last Admin: 01/15/24 22:46 Dose: 50 mg Trazodone HCl (Trazodone Hcl 50 Mg Tablet) 50 mg PO BEDTIME MRX1 PRN PRN Reason: Insomnia Last Admin: 01/15/24 22:50 Dose: 50 mg Vitamin D (Cholecalciferol (Vitamin D3) 25 Mcg Tablet) 25 mcg PO DAILY [facility] Last Admin: 01/15/24 08:33 Dose: 25 mcg Allergies Allergies Allergy/AdvReac Type Severity Reaction Status Date / Time No Known Allergies Allergy Verified 01/07/24 18:59 Assessment & Plan Assessment & Plan (1) Schizophrenia, chronic condition: Status: Acute Code(s): F20.9 - Schizophrenia, unspecified (2) Hypothyroidism: Status: Acute Code(s): E03.9 - Hypothyroidism, unspecified (3) Type 2 diabetes mellitus: Status: Acute Code(s): E11.9 - Type 2 diabetes mellitus without complications Plan 23 yo with extensive hx of psychiatric conditions - unclear guardianship or HCP, [facility] acute decompensation of disorder- Hospital course: 01/07 more calm after olanzapine 20mg, today - ? if lower chlorpromazine prns- , got ekg and follow up lab I had ordered 01/08 Over the weekend, patient louder, naked in the hallway and shouting violent threats towards staff; lost privilege of using walking cane. Overnight little sleep, only 3 hours Today, patient still walking up and down the [place] and Intermittently yelling or saying various provocative statements such as the N word towards staff; yelled a genital epithet toward staff/peer; other sexual comments; however, he seems to be more verbally redirectable and has not made any verbal threats so far. Still intermittently disrobing. -Director Of National [employer] asked why he would make these provocative statements or comments; patient says I see images... Images of snow on the roof, reindeer, bright lights... He also says I yell out loud what I hear... On inquiry patient denies auditory hallucinations and recalibrates to say he yells what his mind is thinking. He says medications help and that they seem to calm him down. During one-to-one conversation patient calm, even polite with blurb writer, answering questions as asked without much elaboration. 01/09 Patient remains disorganized. He is still pacing the [place], intermittently saying inappropriate sexual remarks but he is no longer yelling them and is noticeably more polite and deferential, more easily redirected. Still moments of disrobing. 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 At baseline no psychotic symptoms present -slept some last night -blurb writer discussed patients baseline functioning and patient agreed to stay longer for more stabilization; sign CV -looks like Zyprexa was recently started at ED; [facility] regimen [facility] which includes: lithium ER 600 mg b.i.d. Thorazine to 225 mg b.i.d. Topamax 50 mg b.i.d. -continue current regimen for now; will likely add Topamax 01/10 patient remains disorganized with same behaviors however he is overall less intense, more polite and more easily redirectable. Some insight in that he agrees he needs to stop making inappropriate comments, though not sure if he is capable of this yet. -lithium level WNL; associated labs WNL -will restart Topamax which is his home medication -Will switch Thorazine, which was started at a recent hospitalization, to bedtime since he did not sleep last night. This point will otherwise continue current regimen as patient seems to be slowly improving. 01/11: Remains delusional and disorganized/disinhibited. Continue current management and treatment plan and monitoring response to medications 01/12: Continue current plan of care. 01/13: Continue current management and treatment plan. Improving but remains quite psychotic. 01/14: Continue current management and treatment plan. Improved but remains psychotic. 01/15 Patient intermittently agitated over the weekend but overall remains more stable than on admission. Did not sleep last night. Making some delusional comments, that there was a bunch of [place] he is taking over something in the police were called... Patient tells blurb writer that he is still confused and says I feel like a child right now... Reports continued racing thoughts. Discussed medications and patient agrees to get on Depakote. Plan: CV Q 15 minute checks Continue Thorazine to 225 mg b.i.d. START Depakote ER 750mg qhs LOWER (and taper off) to Zyprexa 15 mg BEDtime (medication was started at [facility], last psych hospitalization a week before this 1) Continue lithium ER 1200 mg, but make a q.h.s. (rather than 600 mg b.i.d.to help with poor sleep) Continue clonidine 0.1 mg b.i.d. Continue levothyroxine 25 mcg daily Continue metformin 850 mg b.i.d. Patient has Zyprexa 10 mg daily p.r.n. Thorazine 100 mg b.i.d. p.r.n. Patient educated on: diagnosis and medication risk/benefits Informed Consent: understands, does not understand and further education needed Reason for continued inpatient stay Substantial Risk for: inability to function Time Spent With Patient Time: Total time managing care of this patient today ____ minutes.
[2024-01-16] MEDS: Topiramate 25 MG TABLET 50 MG PO ×2 (10:41→21:37)
[2024-01-16] MEDS: CHLORPROMAZINE 225 MG PO ×2 (10:41→21:37)
[2024-01-16 10:42] VITALS: BP 116/77
[2024-01-16] MEDS: cloNIDine HCL 0.1 MG TABLET PO ×2 (10:42→21:38)
[2024-01-16] MEDS: Cholecalciferol (Vitamin D3) 25 MCG TABLET PO (10:42)
[2024-01-16] MEDS: metFORMIN HCl 850 MG TABLET PO ×2 (10:42→21:36)
[2024-01-16] MEDS: Acetaminophen 325 MG TABLET 975 MG PO (10:48)
[2024-01-16 20:00] VITALS: BP 114/72; PULSE 118; TEMP 36.9; O2SAT 99
[2024-01-16] MEDS: Lithium Carbonate ER 300 MG TABLET.ER 1200 MG PO (21:36)
[2024-01-16] MEDS: Divalproex Sodium ER 250 MG TAB.ER.24H 750 MG PO (21:36)
[2024-01-16 21:38] VITALS: BP 114/72
[2024-01-16] MEDS: traZODone HCL 50 MG TABLET PO (21:39)
[2024-01-16] MEDS: OLANZapine ODT 10 MG TAB.RAPDIS TRANSLINGU (21:39)
[2024-01-17] MEDS: Levothyroxine Sodium 25 MCG TABLET PO (07:13)
[2024-01-17 09:21] VITALS: BP 128/80
[2024-01-17] MEDS: cloNIDine HCL 0.1 MG TABLET PO ×2 (09:21→21:31)
[2024-01-17] MEDS: Topiramate 25 MG TABLET 50 MG PO ×2 (09:21→21:32)
[2024-01-17] MEDS: Cholecalciferol (Vitamin D3) 25 MCG TABLET PO (09:21)
[2024-01-17] MEDS: metFORMIN HCl 850 MG TABLET PO ×2 (09:21→21:30)
[2024-01-17] MEDS: CHLORPROMAZINE 225 MG PO ×2 (09:21→21:30)
[2024-01-17 09:47] LABS: Creatinine Clr Calc Pharmacy 115.6; Estimated Glomerular Filt Rate > 60
[2024-01-17 21:31] VITALS: BP 155/100
[2024-01-17] MEDS: Lithium Carbonate ER 300 MG TABLET.ER 1200 MG PO (21:31)
[2024-01-17] MEDS: OLANZapine ODT 10 MG TAB.RAPDIS TRANSLINGU (21:32)
[2024-01-17] MEDS: Divalproex Sodium ER 250 MG TAB.ER.24H 750 MG PO (21:32)
[2024-01-17] MEDS: traZODone HCL 50 MG TABLET PO ×2 (21:32→23:14)
--- NOTE | 2024-01-17 22:51 | P.PNPSI_ITS ---
Subjective Subjective Date of Service: 01/17/24 Reason For Visit: Unspecified Bipolar Interim History: Met with patient; discussed with team Patient slept last night having started Depakote Still making inappropriate comments but redirectable. Today he lashed out at his one-to-one staff, saying ... Why did you call me a pedophile however patient quickly apologized. He tells customs entry writer that today he feels more clear minded and agrees to continue with Depakote. Would like Zyprexa to be lowered to which customs entry writer agreed Patient reported sore throat but refused throat culture. Mental Status Exam Mental Status Exam Narrative: Pt is alert and oriented; behavior overall more calm and organized than on admission; no longer pacing. Still intermittently making inappropriate remarks but remains overall polite, cooperative and is easily redirected; no longer disrobing; patient is not in distress; dressed in hospital attire, unkempt; mood is described as more clear minded and affect congruent, more calm; eye contact limited (legally blind); Speech is monotone, normal rate, volume and prosody; not pressured; mild psychomotor agitation present and not sleeping; thought process is concrete, goal directed; Thought content is on struggling with symptoms, with intermittent delusional thinking; denies any SI/HI. Positive for AH and internally preoccupied; Patients insight and judgment impaired though improving. Diagnostics Vital Signs (24Hr): Vital Signs - 24 hr 01/17/24 09:21 01/17/24 21:31 Blood Pressure 128/80 155/100 H BMI result Body Mass Index 35.8 Labs 01/08/24 15:03 01/17/24 09:23 Labs: Laboratory Results - last 48 hr 01/17/24 09:23 Creatinine 1.03 Estim Creat Clear Calc 115.6 Estimated GFR > 60 Medications Medications Current Medications Acetaminophen (Acetaminophen 325 Mg Tablet) 975 mg PO Q8H PRN PRN Reason: Analgesia Last Admin: 01/16/24 10:48 Dose: 975 mg Al Hydroxide/Mg Hydroxide (Magnesium Hydrox/Alum Hydrox 30 Ml Oral.Susp) 30 ml PO Q6H PRN PRN Reason: Heartburn/Nausea Benzocaine (Throat Lozenge, Medicated Lozenge) 1 lozenge MUCOUS MEM Q2H PRN PRN Reason: Sore Throat Chlorpromazine HCl 200 mg/ (Chlorpromazine HCl 25 mg) 225 mg PO BID [facility] Last Admin: 01/17/24 21:30 Dose: 225 mg Chlorpromazine HCl (Chlorpromazine Hcl 100 Mg Tablet) 100 mg PO BID PRN PRN Reason: agitation Last Admin: 01/16/24 01:04 Dose: 100 mg Clonidine HCl (Clonidine Hcl 0.1 Mg Tablet) 0.1 mg PO BID [facility]; Protocol Last Admin: 01/17/24 21:31 Dose: 0.1 mg Divalproex Sodium (Divalproex Sodium Er 250 Mg Tab.Er.24h) 750 mg PO BEDTIME [facility] Last Admin: 01/17/24 21:32 Dose: 750 mg Hydroxyzine HCl (Hydroxyzine Hcl 25 Mg Tablet) 25 mg PO Q6H PRN PRN Reason: Anxiety Last Admin: 01/15/24 23:35 Dose: 25 mg Levothyroxine Sodium (Levothyroxine Sodium 25 Mcg Tablet) 25 mcg PO DAILY@0600 [facility] Last Admin: 01/17/24 07:13 Dose: 25 mcg [place] Carbonate ([place]edar Carbonate Er 300 Mg Tablet.Er) 1,200 mg PO BEDTIME [facility] Last Admin: 01/17/24 21:31 Dose: 1,200 mg Magnesium Hydroxide (Milk Of Magnesia 30 Ml Oral.Susp) 30 ml PO DAILY PRN PRN Reason: Constipation Metformin HCl (Metformin Hcl 850 Mg Tablet) 850 mg PO BID [facility] Last Admin: 01/17/24 21:30 Dose: 850 mg Nicotine Polacrilex (Nicotine Polacrilex 2 Mg Gum) 4 mg BUCCAL Q2H PRN PRN Reason: Nicotine Cravings Olanzapine (Olanzapine Odt 10 Mg Tab.Rapdis) 10 mg TRANSLINGU DAILY PRN PRN Reason: psychosis Last Admin: 01/11/24 06:22 Dose: 10 mg Olanzapine (Olanzapine Odt 10 Mg Tab.Rapdis) 10 mg TRANSLINGU BEDTIME [facility] Last Admin: 01/17/24 21:32 Dose: 10 mg Topiramate (Topiramate 25 Mg Tablet) 50 mg PO BID [facility] Last Admin: 01/17/24 21:32 Dose: 50 mg Trazodone HCl (Trazodone Hcl 50 Mg Tablet) 50 mg PO BEDTIME MRX1 PRN PRN Reason: Insomnia Last Admin: 01/17/24 21:32 Dose: 50 mg Vitamin D (Cholecalciferol (Vitamin D3) 25 Mcg Tablet) 25 mcg PO DAILY [facility] Last Admin: 01/17/24 09:21 Dose: 25 mcg Allergies Allergies Allergy/AdvReac Type Severity Reaction Status Date / Time stimulant medication AdvReac Severe agitation Uncoded 01/16/24 09:52 Assessment & Plan Assessment & Plan (1) Schizophrenia, chronic condition: Status: Acute Code(s): F20.9 - Schizophrenia, unspecified (2) Hypothyroidism: Status: Acute Code(s): E03.9 - Hypothyroidism, unspecified (3) Type 2 diabetes mellitus: Status: Acute Code(s): E11.9 - Type 2 diabetes mellitus without complications Plan 23 yo with extensive hx of psychiatric conditions - unclear guardianship or HCP, [facility] in [facility] acute decompensation of disorder- Hospital course: 01/07 more calm after olanzapine 20mg, today - ? if lower chlorpromazine prns- , got ekg and follow up lab I had ordered 01/08 Over the weekend, patient louder, naked in the hallway and shouting violent threats towards staff; lost privilege of using walking cane. Overnight little sleep, only 3 hours Today, patient still walking up and down the [place] and Intermittently yelling or saying various provocative statements such as the N word towards staff; yelled a genital epithet toward staff/peer; other sexual comments; however, he seems to be more verbally redirectable and has not made any verbal threats so far. Still intermittently disrobing. -Top Dyeing Machine Loader asked why he would make these provocative statements or comments; patient says I see images... Images of snow on the roof, reindeer, bright lights... He also says I yell out loud what I hear... On inquiry patient denies auditory hallucinations and recalibrates to say he yells what his mind is thinking. He says medications help and that they seem to calm him down. During one-to-one conversation patient calm, even polite with customs entry writer, answering questions as asked without much elaboration. 01/09 Patient remains disorganized. He is still pacing the [place], intermittently saying inappropriate sexual remarks but he is no longer yelling them and is noticeably more polite and deferential, more easily redirected. Still moments of disrobing. 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 At baseline no psychotic symptoms present -slept some last night -customs entry writer discussed patients baseline functioning and patient agreed to stay longer for more stabilization; sign CV -looks like Zyprexa was recently started at ED; obtained home medication regimen from [facility]way which includes: lithium ER 600 mg b.i.d. Thorazine to 225 mg b.i.d. Topamax 50 mg b.i.d. -continue current regimen for now; will likely add Topamax 01/10 patient remains disorganized with same behaviors however he is overall less intense, more polite and more easily redirectable. Some insight in that he agrees he needs to stop making inappropriate comments, though not sure if he is capable of this yet. -lithium level WNL; associated labs WNL -will restart Topamax which is his home medication -Will switch Thorazine, which was started at a recent hospitalization, to bedtime since he did not sleep last night. This point will otherwise continue current regimen as patient seems to be slowly improving. 01/11: Remains delusional and disorganized/disinhibited. Continue current management and treatment plan and monitoring response to medications 01/12: Continue current plan of care. 01/13: Continue current management and treatment plan. Improving but remains quite psychotic. 01/14: Continue current management and treatment plan. Improved but remains psychotic. 01/14: Continue current management and treatment plan. Improved but remains psychotic. 01/15 Patient intermittently agitated over the weekend but overall remains more stable than on admission. Did not sleep last night. Making some delusional comments, that there was a bunch of [place] he is taking over something in the police were called... Patient tells customs entry writer that he is still confused and says I feel like a child right now... Reports continued racing thoughts. Discussed medications and patient agrees to get on Depakote. 01/16 Patient slept last night having started Depakote Still making inappropriate comments but redirectable. Today he lashed out at his one-to-one staff, saying ... Why did you call me a pedophile however patient quickly apologized. He tells customs entry writer that today he feels more clear minded and agrees to continue with Depakote. Would like Zyprexa to be lowered to which customs entry writer agreed Patient reported sore throat but refused throat culture. -discussed his making inappropriate comments and patient apologized saying he does not want to do that Plan: CV Q 15 minute checks Continue Thorazine to 225 mg b.i.d. continue Depakote ER 750mg qhs LOWER (and taper off) to Zyprexa 15 mg BEDtime (medication was started at [facility], last [facility] hospitalization a week before this 1) Continue lithium ER 1200 mg, but make a q.h.s. (rather than 600 mg b.i.d.to help with poor sleep) Continue clonidine 0.1 mg b.i.d. Continue levothyroxine 25 mcg daily Continue metformin 850 mg b.i.d. Patient has Zyprexa 10 mg daily p.r.n. Thorazine 100 mg b.i.d. p.r.n. Patient educated on: diagnosis, medication risk/benefits and therapeutic strategies Informed Consent: understands, does not understand and further education needed Reason for continued inpatient stay Substantial Risk for: inability to function and rapid decompensation Time Spent With Patient Time: Total time managing care of this patient today ____ minutes.
[2024-01-18] MEDS: traZODone HCL 50 MG TABLET PO ×2 (01:44→21:58)
[2024-01-18 08:00] VITALS: BP 140/83; PULSE 114; TEMP 36.9; O2SAT 100
[2024-01-18] MEDS: CHLORPROMAZINE 225 MG PO ×2 (08:19→21:57)
[2024-01-18] MEDS: cloNIDine HCL 0.1 MG TABLET PO (08:19)
[2024-01-18] MEDS: Cholecalciferol (Vitamin D3) 25 MCG TABLET PO (08:19)
[2024-01-18] MEDS: metFORMIN HCl 850 MG TABLET PO ×2 (08:20→21:58)
[2024-01-18] MEDS: Topiramate 25 MG TABLET 50 MG PO ×2 (08:20→21:58)
[2024-01-18] MEDS: Levothyroxine Sodium 25 MCG TABLET PO (08:20)
--- NOTE | 2024-01-18 19:51 | P.PNPSI_ITS ---
Subjective Subjective Date of Service: 01/18/24 Reason For Visit: Unspecified Bipolar Interim History: Met with patient; discussed with team Patient says he is feeling better and maybe back to his regular self. He shares a bizarre idea about a place that all of us can go.. Referring to staff and the patients on the unit, saying he wants to go somewhere near [place] were everyone can stay. Otherwise he is sleeping better and says he wants to get off any medication that makes him tired during the day because he needs to work at [employer]. He asks when he can discharge home and was grateful to understand that shelter wants him back. He agrees to DC clonidine; agrees to continue taking Depakote and get labs; discussed Zyprexa and patient agrees to have it tapered since he was not on this previously Mental Status Exam Mental Status Exam Narrative: Pt is alert and oriented; behavior overall more calm and organized, cooperative; Still intermittently making inappropriate remarks but but less so, is apologetic and easily redirectable; patient is not in distress; dressed in hospital attire, improved hygiene and grooming; mood is described as better and affect congruent, more calm; eye contact limited (legally blind); Speech is monotone, normal rate, volume and prosody; not pressured; mild psychomotor agitation present and not sleeping; thought process is concrete, goal directed; Thought content is on struggling with symptoms, with intermittent delusional thinking; denies any SI/HI. Positive for AH and internally preoccupied; Patients insight and judgment impaired though improving. Diagnostics Vital Signs (24Hr): Vital Signs - 24 hr 01/17/24 21:31 01/18/24 08:00 Temperature 98.4 F Pulse Rate 114 H Blood Pressure 155/100 H 140/83 H Pulse Oximetry 100 Oxygen Delivery Method Nasal Cannula BMI result Body Mass Index 35.8 Labs 01/08/24 15:03 01/17/24 09:23 Labs: Laboratory Results - last 48 hr 01/17/24 09:23 Creatinine 1.03 Estim Creat Clear Calc 115.6 Estimated GFR > 60 Medications Medications Current Medications Acetaminophen (Acetaminophen 325 Mg Tablet) 975 mg PO Q8H PRN PRN Reason: Analgesia Last Admin: 01/16/24 10:48 Dose: 975 mg Al Hydroxide/Mg Hydroxide (Magnesium Hydrox/Alum Hydrox 30 Ml Oral.Susp) 30 ml PO Q6H PRN PRN Reason: Heartburn/Nausea Benzocaine (Throat Lozenge, Medicated Lozenge) 1 lozenge MUCOUS MEM Q2H PRN PRN Reason: Sore Throat Chlorpromazine HCl 200 mg/ (Chlorpromazine HCl 25 mg) 225 mg PO BID [facility] Last Admin: 01/18/24 08:19 Dose: 225 mg Divalproex Sodium (Divalproex Sodium Er 250 Mg Tab.Er.24h) 750 mg PO BEDTIME [facility] Last Admin: 01/17/24 21:32 Dose: 750 mg Hydroxyzine HCl (Hydroxyzine Hcl 25 Mg Tablet) 25 mg PO Q6H PRN PRN Reason: Anxiety Last Admin: 01/15/24 23:35 Dose: 25 mg Levothyroxine Sodium (Levothyroxine Sodium 25 Mcg Tablet) 25 mcg PO DAILY@0600 [facility] Last Admin: 01/18/24 08:20 Dose: 25 mcg [place] Carbonate ([place] Carbonate Er 300 Mg Tablet.Er) 1,200 mg PO BEDTIME [facility] Last Admin: 01/17/24 21:31 Dose: 1,200 mg Magnesium Hydroxide (Milk Of Magnesia 30 Ml Oral.Susp) 30 ml PO DAILY PRN PRN Reason: Constipation Metformin HCl (Metformin Hcl 850 Mg Tablet) 850 mg PO BID [facility] Last Admin: 01/18/24 08:20 Dose: 850 mg Nicotine Polacrilex (Nicotine Polacrilex 2 Mg Gum) 4 mg BUCCAL Q2H PRN PRN Reason: Nicotine Cravings Olanzapine (Olanzapine Odt 10 Mg Tab.Rapdis) 10 mg TRANSLINGU DAILY PRN PRN Reason: psychosis Last Admin: 01/11/24 06:22 Dose: 10 mg Olanzapine (Olanzapine 5 Mg Tablet) 5 mg PO BEDTIME [facility] Topiramate (Topiramate 25 Mg Tablet) 50 mg PO BID [facility] Last Admin: 01/18/24 08:20 Dose: 50 mg Trazodone HCl (Trazodone Hcl 50 Mg Tablet) 50 mg PO BEDTIME MRX1 PRN PRN Reason: Insomnia Last Admin: 01/18/24 01:44 Dose: 50 mg Vitamin D (Cholecalciferol (Vitamin D3) 25 Mcg Tablet) 25 mcg PO DAILY [facility] Last Admin: 01/18/24 08:19 Dose: 25 mcg Allergies Allergies Allergy/AdvReac Type Severity Reaction Status Date / Time stimulant medication AdvReac Severe agitation Uncoded 01/16/24 09:52 Assessment & Plan Assessment & Plan (1) Schizophrenia, chronic condition: Status: Acute Code(s): F20.9 - Schizophrenia, unspecified (2) Hypothyroidism: Status: Acute Code(s): E03.9 - Hypothyroidism, unspecified (3) Type 2 diabetes mellitus: Status: Acute Code(s): E11.9 - Type 2 diabetes mellitus without complications Plan 23 yo with extensive hx of psychiatric conditions - unclear guardianship or HCP, living in shelter acute decompensation of disorder- Hospital course: 01/07 more calm after olanzapine 20mg, today - ? if lower chlorpromazine prns- , got ekg and follow up lab I had ordered 01/08 Over the weekend, patient louder, naked in the hallway and shouting violent threats towards staff; lost privilege of using walking cane. Overnight little sleep, only 3 hours Today, patient still walking up and down the [place] and Intermittently yelling or saying various provocative statements such as the N word towards staff; yelled a genital epithet toward staff/peer; other sexual comments; however, he seems to be more verbally redirectable and has not made any verbal threats so far. Still intermittently disrobing. -Vineyard Worker asked why he would make these provocative statements or comments; patient says I see images... Images of snow on the roof, reindeer, bright lights... He also says I yell out loud what I hear... On inquiry patient denies auditory hallucinations and recalibrates to say he yells what his mind is thinking. He says medications help and that they seem to calm him down. During one-to-one conversation patient calm, even polite with hand sign writer, answering questions as asked without much elaboration. 01/09 Patient remains disorganized. He is still pacing the [place], intermittently saying inappropriate sexual remarks but he is no longer yelling them and is noticeably more polite and deferential, more easily redirected. Still moments of disrobing. 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 At baseline no psychotic symptoms present -slept some last night -hand sign writer discussed patients baseline functioning and patient agreed to stay longer for more stabilization; sign CV -looks like Zyprexa was recently started at ED; obtained home medication regimen from shelter which includes: lithium ER 600 mg b.i.d. Thorazine to 225 mg b.i.d. Topamax 50 mg b.i.d. -continue current regimen for now; will likely add Topamax 01/10 patient remains disorganized with same behaviors however he is overall less intense, more polite and more easily redirectable. Some insight in that he agrees he needs to stop making inappropriate comments, though not sure if he is capable of this yet. -lithium level WNL; associated labs WNL -will restart Topamax which is his home medication -Will switch Thorazine, which was started at a recent hospitalization, to bedtime since he did not sleep last night. This point will otherwise continue current regimen as patient seems to be slowly improving. 01/11: Remains delusional and disorganized/disinhibited. Continue current management and treatment plan and monitoring response to medications 01/12: Continue current plan of care. 01/13: Continue current management and treatment plan. Improving but remains quite psychotic. 01/14: Continue current management and treatment plan. Improved but remains psychotic. 01/15 Patient intermittently agitated over the weekend but overall remains more stable than on admission. Did not sleep last night. Making some delusional comments, that there was a bunch of [place] he is taking over something in the police were called... Patient tells hand sign writer that he is still confused and says I feel like a child right now... Reports continued racing thoughts. Discussed medications and patient agrees to get on Depakote. 01/16 Patient slept last night having started Depakote Still making inappropriate comments but redirectable. Today he lashed out at his one-to-one staff, saying ... Why did you call me a pedophile however patient quickly apologized. He tells hand sign writer that today he feels more clear minded and agrees to continue with Depakote. Would like Zyprexa to be lowered to which hand sign writer agreed Patient reported sore throat but refused throat culture. -discussed his making inappropriate comments and patient apologized saying he does not want to do that 01/17 Patient says he is feeling better and maybe back to his regular self. He shares a bizarre idea about a place that all of us can go.. Referring to staff and the patients on the unit, saying he wants to go somewhere near [place] were everyone can stay. Otherwise he is sleeping better and says he wants to get off any medication that makes him tired during the day because he needs to work at [employer]. He asks when he can discharge home and was grateful to understand that shelter wants him back. He agrees to DC clonidine; agrees to continue taking Depakote and get labs; discussed Zyprexa and patient agrees to have it tapered since he was not on this previously Plan: CV Q 15 minute checks Continue Thorazine to 225 mg b.i.d. continue Depakote ER 750mg qhs LOWER (and taper off) to Zyprexa 10 mg BEDtime (medication was started at [facility], last [facility] a week before this 1) Continue lithium ER 1200 mg, but make a q.h.s. (rather than 600 mg b.i.d.to help with poor sleep) Continue clonidine 0.1 mg b.i.d. Continue levothyroxine 25 mcg daily Continue metformin 850 mg b.i.d. Patient has Zyprexa 10 mg daily p.r.n. Thorazine 100 mg b.i.d. p.r.n. Patient educated on: diagnosis, medication risk/benefits and therapeutic strategies Informed Consent: understands, does not understand and further education needed Reason for continued inpatient stay Substantial Risk for: inability to function and rapid decompensation Time Spent With Patient Time: Total time managing care of this patient today ____ minutes.
[2024-01-18 20:00] VITALS: RESP 16
[2024-01-18] MEDS: Lithium Carbonate ER 300 MG TABLET.ER 1200 MG PO (21:58)
[2024-01-18] MEDS: OLANZapine 5 MG TABLET PO (21:58)
[2024-01-18] MEDS: Divalproex Sodium ER 250 MG TAB.ER.24H 750 MG PO (21:58)
[2024-01-19] MEDS: Levothyroxine Sodium 25 MCG TABLET PO (07:22)
[2024-01-19 08:00] VITALS: BP 131/82; PULSE 98; RESP 18; TEMP 37.2; O2SAT 96
[2024-01-19 08:52] LABS: Ammonia 33 umol/L (13-55)
[2024-01-19 08:54] LABS: Valproate 36.6 mcg/mL (50.0-100.0)
[2024-01-19] MEDS: metFORMIN HCl 850 MG TABLET PO ×2 (08:59→21:58)
[2024-01-19] MEDS: Cholecalciferol (Vitamin D3) 25 MCG TABLET PO (08:59)
[2024-01-19] MEDS: Topiramate 25 MG TABLET 50 MG PO ×2 (08:59→21:57)
[2024-01-19] MEDS: CHLORPROMAZINE 225 MG PO ×2 (08:59→21:57)
[2024-01-19 09:00] LABS: Alanine Aminotransferase 36 U/L (0-40); Albumin Level 4.5 g/dL (3.5-5.0); Alkaline Phosphatase 89 U/L (39-117); Aspartate Amino Transferase 20 U/L (5-37); Bilirubin Direct 0.1 mg/dL (0.0-0.5); Bilirubin Total 0.4 mg/dL (0.0-1.0); Total Protein 7.1 g/dL (6.5-8.0)
--- NOTE | 2024-01-19 09:45 | HO.PSYCHPN ---
Subjective Subjective Date of Service: 01/19/24 Reason For Visit: Unspecified Bipolar Interim History: Met with patient; discussed with team asks for levothyroxine to be changed to 9am since he feels it is too much to take med indications 3 times a day Today much improved in terms of abstaining from making inappropriate comments; so far more appropriate during group meetings increasing Depakote ER to 1000mg since level subtherapeutic; patient agrees. still intermittent makes delusional comments... Mental Status Exam Mental Status Exam Narrative: Pt is alert and oriented; behavior overall more calm and organized, cooperative; seems to be making less inappropriate comments; remains easily redirectable; patient is not in distress; dressed in hospital attire, improved hygiene and grooming; mood is described as ok and affect congruent, more calm; eye contact limited (legally blind); Speech is monotone, normal rate, volume and prosody; not pressured; mild psychomotor agitation present and not sleeping; thought process is concrete, goal directed; Thought content is on struggling with symptoms, with intermittent delusional thinking; denies any SI/HI. Positive for AH and internally preoccupied; Patients insight and judgment impaired though improving and seems to be headed towards baseline. Diagnostics Vital Signs (24Hr): Vital Signs - 24 hr 01/18/24 20:00 01/19/24 08:00 Temperature 98.9 F Pulse Rate 98 Respiratory Rate 16 18 Blood Pressure 131/82 Pulse Oximetry 96 Oxygen Delivery Method Nasal Cannula BMI result Body Mass Index 35.8 Labs 01/08/24 15:03 01/17/24 09:23 Labs: Laboratory Results - last 48 hr 01/17/24 01/19/24 09:23 08:34 Creatinine 1.03 Estim Creat Clear Calc 115.6 Estimated GFR > 60 Total Bilirubin 0.4 Direct Bilirubin 0.1 AST 20 ALT 36 Alkaline Phosphatase 89 Ammonia 33 Total Protein 7.1 Albumin 4.5 Valproic Acid 36.6 L Medications Medications Current Medications Acetaminophen (Acetaminophen 325 Mg Tablet) 975 mg PO Q8H PRN PRN Reason: Analgesia Last Admin: 01/16/24 10:48 Dose: 975 mg Al Hydroxide/Mg Hydroxide (Magnesium Hydrox/Alum Hydrox 30 Ml Oral.Susp) 30 ml PO Q6H PRN PRN Reason: Heartburn/Nausea Benzocaine (Throat Lozenge, Medicated Lozenge) 1 lozenge MUCOUS MEM Q2H PRN PRN Reason: Sore Throat Chlorpromazine HCl 200 mg/ (Chlorpromazine HCl 25 mg) 225 mg PO BID [facility] Last Admin: 01/19/24 08:59 Dose: 225 mg Divalproex Sodium (Divalproex Sodium Er 250 Mg Tab.Er.24h) 750 mg PO BEDTIME [facility] Last Admin: 01/18/24 21:58 Dose: 750 mg Hydroxyzine HCl (Hydroxyzine Hcl 25 Mg Tablet) 25 mg PO Q6H PRN PRN Reason: Anxiety Last Admin: 01/15/24 23:35 Dose: 25 mg Levothyroxine Sodium (Levothyroxine Sodium 25 Mcg Tablet) 25 mcg PO DAILY@0600 [facility] Last Admin: 01/19/24 07:22 Dose: 25 mcg [place] Carbonate ([place] Carbonate Er 300 Mg Tablet.Er) 1,200 mg PO BEDTIME [facility] Last Admin: 01/18/24 21:58 Dose: 1,200 mg Magnesium Hydroxide (Milk Of Magnesia 30 Ml Oral.Susp) 30 ml PO DAILY PRN PRN Reason: Constipation Metformin HCl (Metformin Hcl 850 Mg Tablet) 850 mg PO BID [facility] Last Admin: 01/19/24 08:59 Dose: 850 mg Nicotine Polacrilex (Nicotine Polacrilex 2 Mg Gum) 4 mg BUCCAL Q2H PRN PRN Reason: Nicotine Cravings Olanzapine (Olanzapine Odt 10 Mg Tab.Rapdis) 10 mg TRANSLINGU DAILY PRN PRN Reason: psychosis Last Admin: 01/11/24 06:22 Dose: 10 mg Olanzapine (Olanzapine 5 Mg Tablet) 5 mg PO BEDTIME [facility] Last Admin: 01/18/24 21:58 Dose: 5 mg Topiramate (Topiramate 25 Mg Tablet) 50 mg PO BID [facility] Last Admin: 01/19/24 08:59 Dose: 50 mg Trazodone HCl (Trazodone Hcl 50 Mg Tablet) 50 mg PO BEDTIME MRX1 PRN PRN Reason: Insomnia Last Admin: 01/18/24 21:58 Dose: 50 mg Vitamin D (Cholecalciferol (Vitamin D3) 25 Mcg Tablet) 25 mcg PO DAILY [facility] Last Admin: 01/19/24 08:59 Dose: 25 mcg Allergies Allergies Allergy/AdvReac Type Severity Reaction Status Date / Time stimulant medication AdvReac Severe agitation Uncoded 01/16/24 09:52 Assessment & Plan Assessment & Plan (1) Schizophrenia, chronic condition: Status: Acute Code(s): F20.9 - Schizophrenia, unspecified (2) Hypothyroidism: Status: Acute Code(s): E03.9 - Hypothyroidism, unspecified (3) Type 2 diabetes mellitus: Status: Acute Code(s): E11.9 - Type 2 diabetes mellitus without complications Plan 23 yo with extensive hx of psychiatric conditions - unclear guardianship or HCP, living in residential acute decompensation of disorder- Hospital course: 01/07 more calm after olanzapine 20mg, today - ? if lower chlorpromazine prns- , got ekg and follow up lab I had ordered 01/08 Over the weekend, patient louder, naked in the hallway and shouting violent threats towards staff; lost privilege of using walking cane. Overnight little sleep, only 3 hours Today, patient still walking up and down the [place] and Intermittently yelling or saying various provocative statements such as the N word towards staff; yelled a genital epithet toward staff/peer; other sexual comments; however, he seems to be more verbally redirectable and has not made any verbal threats so far. Still intermittently disrobing. -Petroleum Production Engineer asked why he would make these provocative statements or comments; patient says I see images... Images of snow on the roof, reindeer, bright lights... He also says I yell out loud what I hear... On inquiry patient denies auditory hallucinations and recalibrates to say he yells what his mind is thinking. He says medications help and that they seem to calm him down. During one-to-one conversation patient calm, even polite with fiction and nonfiction writer prose, answering questions as asked without much elaboration. 01/09 Patient remains disorganized. He is still pacing the [place], intermittently saying inappropriate sexual remarks but he is no longer yelling them and is noticeably more polite and deferential, more easily redirected. Still moments of disrobing. 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 At baseline no psychotic symptoms present -slept some last night -fiction and nonfiction writer prose discussed patients baseline functioning and patient agreed to stay longer for more stabilization; sign CV -looks like Zyprexa was recently started at ED; obtained home medication regimen from residential which includes: lithium ER 600 mg b.i.d. Thorazine to 225 mg b.i.d. Topamax 50 mg b.i.d. -continue current regimen for now; will likely add Topamax 01/10 patient remains disorganized with same behaviors however he is overall less intense, more polite and more easily redirectable. Some insight in that he agrees he needs to stop making inappropriate comments, though not sure if he is capable of this yet. -lithium level WNL; associated labs WNL -will restart Topamax which is his home medication -Will switch Thorazine, which was started at a recent hospitalization, to bedtime since he did not sleep last night. This point will otherwise continue current regimen as patient seems to be slowly improving. 01/11: Remains delusional and disorganized/disinhibited. Continue current management and treatment plan and monitoring response to medications 01/12: Continue current plan of care. 01/13: Continue current management and treatment plan. Improving but remains quite psychotic. 01/14: Continue current management and treatment plan. Improved but remains psychotic. 01/15 Patient intermittently agitated over the weekend but overall remains more stable than on admission. Did not sleep last night. Making some delusional comments, that there was a bunch of [place] he is taking over something in the police were called... Patient tells fiction and nonfiction writer prose that he is still confused and says I feel like a child right now... Reports continued racing thoughts. Discussed medications and patient agrees to get on Depakote. 01/16 Patient slept last night having started Depakote Still making inappropriate comments but redirectable. Today he lashed out at his one-to-one staff, saying ... Why did you call me a pedophile however patient quickly apologized. He tells fiction and nonfiction writer prose that today he feels more clear minded and agrees to continue with Depakote. Would like Zyprexa to be lowered to which fiction and nonfiction writer prose agreed Patient reported sore throat but refused throat culture. -discussed his making inappropriate comments and patient apologized saying he does not want to do that 01/17 Patient says he is feeling better and maybe back to his regular self. He shares a bizarre idea about a place that all of us can go.. Referring to staff and the patients on the unit, saying he wants to go somewhere near [place] were everyone can stay. Otherwise he is sleeping better and says he wants to get off any medication that makes him tired during the day because he needs to work at [employer]. He asks when he can discharge home and was grateful to understand that residential wants him back. He agrees to DC clonidine; agrees to continue taking Depakote and get labs; discussed Zyprexa and patient agrees to have it tapered since he was not on this previously 01/18 asks for levothyroxine to be changed to 9am since he feels it is too much to take med indications 3 times a day Today much improved in terms of abstaining from making inappropriate comments; so far more appropriate during group meetings increasing Depakote ER to 1000mg since level subtherapeutic; patient agrees. still intermittent makes delusional comments but seems to be less so... Plan: CV Q 15 minute checks Continue Thorazine to 225 mg b.i.d. INCreased to Depakote ER 1000mg qhs; Depakote level subtherapeutic LOWERing (and taper off) to Zyprexa 5 mg BEDtime (medication was started at [facility], last psych hospitalization a week before this 1) Continue lithium ER 1200 mg, but make a q.h.s. (rather than 600 mg b.i.d.to help with poor sleep) DC'd clonidine; patient said it makes him tired and does not want Continue levothyroxine 25 mcg daily at 09:00 Continue metformin 850 mg b.i.d. Patient has Zyprexa 10 mg daily p.r.n. Patient educated on: diagnosis, medication risk/benefits and therapeutic strategies Informed Consent: understands Reason for continued inpatient stay Substantial Risk for: inability to function and rapid decompensation Time Spent With Patient Time: Total time managing care of this patient today ____ minutes.
[2024-01-19 20:00] VITALS: BP 131/74; PULSE 102; RESP 16; TEMP 36.1; O2SAT 98
[2024-01-19] MEDS: OLANZapine 5 MG TABLET PO (21:56)
[2024-01-19] MEDS: Divalproex Sodium ER 500 MG TAB.ER.24H 1000 MG PO (21:57)
[2024-01-19] MEDS: hydrOXYzine HCL 25 MG TABLET PO (21:57)
[2024-01-19] MEDS: traZODone HCL 50 MG TABLET PO (21:58)
[2024-01-19] MEDS: Lithium Carbonate ER 300 MG TABLET.ER 1200 MG PO (21:58)
[2024-01-20 08:00] VITALS: RESP 18
[2024-01-20] MEDS: Levothyroxine Sodium 25 MCG TABLET PO (09:15)
[2024-01-20] MEDS: metFORMIN HCl 850 MG TABLET PO ×2 (09:15→22:15)
[2024-01-20] MEDS: CHLORPROMAZINE 225 MG PO ×2 (09:15→22:15)
[2024-01-20] MEDS: Topiramate 25 MG TABLET 50 MG PO ×2 (09:15→22:14)
[2024-01-20] MEDS: Cholecalciferol (Vitamin D3) 25 MCG TABLET PO (09:15)
--- NOTE | 2024-01-20 14:37 | P.PNPSI_ITS ---
Subjective Subjective Date of Service: 01/20/24 Reason For Visit: Unspecified Bipolar Interim History: Met with patient; discussed with team Patient doing much better today and though still some odd semi delusional remarks, no sexually inappropriate ones and doing well in groups. Patient sleepy today and not sure why. Discussed medication regimens and he would like trazodone taken down since he is wondering if that is what made him groggy today Mental Status Exam Mental Status Exam Narrative: Pt is alert and oriented; behavior overall more calm and organized, cooperative; no sexually inappropriate remarks; still some intermittent delusional comments but less so; patient is not in distress; dressed in hospital attire, adequate hygiene and grooming; mood is described as okay and affect congruent, calm; eye contact limited (legally blind); Speech is normal rate, volume and prosody; not pressured; no psychomotor agitation present; thought process is concrete, goal directed; Thought content is on discharge, getting back to work, medications; intermittent delusional thinking; denies any SI/HI. AH? Patient insight and judgment impaired though much improved and likely close to or at baseline Diagnostics Vital Signs (24Hr): Vital Signs - 24 hr 01/19/24 20:00 01/20/24 08:00 Temperature 97.0 F Pulse Rate 102 H Respiratory Rate 16 18 Blood Pressure 131/74 Pulse Oximetry 98 Oxygen Delivery Method Room Air BMI result Body Mass Index 35.8 Labs 01/08/24 15:03 01/17/24 09:23 Labs: Laboratory Results - last 48 hr 01/19/24 08:34 Total Bilirubin 0.4 Direct Bilirubin 0.1 AST 20 ALT 36 Alkaline Phosphatase 89 Ammonia 33 Total Protein 7.1 Albumin 4.5 Valproic Acid 36.6 L Medications Medications Current Medications Acetaminophen (Acetaminophen 325 Mg Tablet) 975 mg PO Q8H PRN PRN Reason: Analgesia Last Admin: 01/16/24 10:48 Dose: 975 mg Al Hydroxide/Mg Hydroxide (Magnesium Hydrox/Alum Hydrox 30 Ml Oral.Susp) 30 ml PO Q6H PRN PRN Reason: Heartburn/Nausea Benzocaine (Throat Lozenge, Medicated Lozenge) 1 lozenge MUCOUS MEM Q2H PRN PRN Reason: Sore Throat Chlorpromazine HCl 200 mg/ (Chlorpromazine HCl 25 mg) 225 mg PO BID [facility] Last Admin: 01/20/24 09:15 Dose: 225 mg Divalproex Sodium (Divalproex Sodium Er 500 Mg Tab.Er.24h) 1,000 mg PO BEDTIME [facility] Last Admin: 01/19/24 21:57 Dose: 1,000 mg Hydroxyzine HCl (Hydroxyzine Hcl 25 Mg Tablet) 25 mg PO Q6H PRN PRN Reason: Anxiety Last Admin: 01/19/24 21:57 Dose: 25 mg Levothyroxine Sodium (Levothyroxine Sodium 25 Mcg Tablet) 25 mcg PO DAILY@0900 [facility] Last Admin: 01/20/24 09:15 Dose: 25 mcg [place] Carbonate ([place] Carbonate Er 300 Mg Tablet.Er) 1,200 mg PO BEDTIME [facility] Last Admin: 01/19/24 21:58 Dose: 1,200 mg Magnesium Hydroxide (Milk Of Magnesia 30 Ml Oral.Susp) 30 ml PO DAILY PRN PRN Reason: Constipation Metformin HCl (Metformin Hcl 850 Mg Tablet) 850 mg PO BID [facility] Last Admin: 01/20/24 09:15 Dose: 850 mg Nicotine Polacrilex (Nicotine Polacrilex 2 Mg Gum) 4 mg BUCCAL Q2H PRN PRN Reason: Nicotine Cravings Olanzapine (Olanzapine Odt 10 Mg Tab.Rapdis) 10 mg TRANSLINGU DAILY PRN PRN Reason: psychosis Last Admin: 01/11/24 06:22 Dose: 10 mg Olanzapine (Olanzapine 5 Mg Tablet) 5 mg PO BEDTIME [facility] Stop: 01/21/24 23:59 Last Admin: 01/19/24 21:56 Dose: 5 mg Topiramate (Topiramate 25 Mg Tablet) 50 mg PO BID [facility] Last Admin: 01/20/24 09:15 Dose: 50 mg Trazodone HCl (Trazodone Hcl 50 Mg Tablet) 50 mg PO BEDTIME MRX1 PRN PRN Reason: Insomnia Last Admin: 01/19/24 21:58 Dose: 50 mg Vitamin D (Cholecalciferol (Vitamin D3) 25 Mcg Tablet) 25 mcg PO DAILY [facility] Last Admin: 01/20/24 09:15 Dose: 25 mcg Allergies Allergies Allergy/AdvReac Type Severity Reaction Status Date / Time stimulant medication AdvReac Severe agitation Uncoded 01/16/24 09:52 Assessment & Plan Assessment & Plan (1) Schizophrenia, chronic condition: Status: Acute Code(s): F20.9 - Schizophrenia, unspecified (2) Hypothyroidism: Status: Acute Code(s): E03.9 - Hypothyroidism, unspecified (3) Type 2 diabetes mellitus: Status: Acute Code(s): E11.9 - Type 2 diabetes mellitus without complications Plan 23 yo with extensive hx of psychiatric conditions - unclear guardianship or HCP, living in care home acute decompensation of disorder- Hospital course: 01/07 more calm after olanzapine 20mg, today - ? if lower chlorpromazine prns- , got ekg and follow up lab I had ordered 01/08 Over the weekend, patient louder, naked in the hallway and shouting violent threats towards staff; lost privilege of using walking cane. Overnight little sleep, only 3 hours Today, patient still walking up and down the [place] and Intermittently yelling or saying various provocative statements such as the N word towards staff; yelled a genital epithet toward staff/peer; other sexual comments; however, he seems to be more verbally redirectable and has not made any verbal threats so far. Still intermittently disrobing. -Digital Operations Analyst asked why he would make these provocative statements or comments; patient says I see images... Images of snow on the roof, reindeer, bright lights... He also says I yell out loud what I hear... On inquiry patient denies auditory hallucinations and recalibrates to say he yells what his mind is thinking. He says medications help and that they seem to calm him down. During one-to-one conversation patient calm, even polite with software writer, answering questions as asked without much elaboration. 01/09 Patient remains disorganized. He is still pacing the [place], intermittently saying inappropriate sexual remarks but he is no longer yelling them and is noticeably more polite and deferential, more easily redirected. Still moments of disrobing. 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 At baseline no psychotic symptoms present -slept some last night -software writer discussed patients baseline functioning and patient agreed to stay longer for more stabilization; sign CV -looks like Zyprexa was recently started at ED; obtained home medication regimen from care home which includes: lithium ER 600 mg b.i.d. Thorazine to 225 mg b.i.d. Topamax 50 mg b.i.d. -continue current regimen for now; will likely add Topamax 01/10 patient remains disorganized with same behaviors however he is overall less intense, more polite and more easily redirectable. Some insight in that he agrees he needs to stop making inappropriate comments, though not sure if he is capable of this yet. -lithium level WNL; associated labs WNL -will restart Topamax which is his home medication -Will switch Thorazine, which was started at a recent hospitalization, to bedtime since he did not sleep last night. This point will otherwise continue current regimen as patient seems to be slowly improving. 01/11: Remains delusional and disorganized/disinhibited. Continue current management and treatment plan and monitoring response to medications 01/12: Continue current plan of care. 01/13: Continue current management and treatment plan. Improving but remains quite psychotic. 01/14: Continue current management and treatment plan. Improved but remains psychotic. 01/15 Patient intermittently agitated over the weekend but overall remains more stable than on admission. Did not sleep last night. Making some delusional comments, that there was a bunch of [place] he is taking over something in the police were called... Patient tells software writer that he is still confused and says I feel like a child right now... Reports continued racing thoughts. Discussed medications and patient agrees to get on Depakote. 01/16 Patient slept last night having started Depakote Still making inappropriate comments but redirectable. Today he lashed out at his one-to-one staff, saying ... Why did you call me a pedophile however patient quickly apologized. He tells software writer that today he feels more clear minded and agrees to continue with Depakote. Would like Zyprexa to be lowered to which software writer agreed Patient reported sore throat but refused throat culture. -discussed his making inappropriate comments and patient apologized saying he does not want to do that 01/17 Patient says he is feeling better and maybe back to his regular self. He shares a bizarre idea about a place that all of us can go.. Referring to staff and the patients on the unit, saying he wants to go somewhere near [place] were everyone can stay. Otherwise he is sleeping better and says he wants to get off any medication that makes him tired during the day because he needs to work at [employer]. He asks when he can discharge home and was grateful to understand that care home wants him back. He agrees to DC clonidine; agrees to continue taking Depakote and get labs; discussed Zyprexa and patient agrees to have it tapered since he was not on this previously 01/18 asks for levothyroxine to be changed to 9am since he feels it is too much to take med indications 3 times a day Today much improved in terms of abstaining from making inappropriate comments; so far more appropriate during group meetings increasing Depakote ER to 1000mg since level subtherapeutic; patient agrees. still intermittent makes delusional comments but seems to be less so... 01/19 Patient doing much better today and though still some odd semi delusional remarks, no sexually inappropriate ones and doing well in groups. Patient sleepy today and not sure why. Discussed medication regimens and he would like trazodone taken down since he is wondering if that is what made him groggy today. Patient very concerned about being sleepy when he get back to work Plan: CV Q 15 minute checks Continue Thorazine to 225 mg b.i.d. INCreased to Depakote ER 1000mg qhs; Depakote level subtherapeutic DC Zyprexa medication was started at [facility], last psych hospitalization a week before this 1) Continue lithium ER 1200 mg, but make a q.h.s. (rather than 600 mg b.i.d.to help with poor sleep) DC'd clonidine; patient said it makes him tired and does not want Continue levothyroxine 25 mcg daily at 09:00 Continue metformin 850 mg b.i.d. DC trazodone Patient has Zyprexa 10 mg daily p.r.n. Patient educated on: diagnosis and medication risk/benefits Informed Consent: understands and further education needed Reason for continued inpatient stay Substantial Risk for: stable for discharge Time Spent With Patient Time: Total time managing care of this patient today ____ minutes.
[2024-01-20 20:00] VITALS: BP 122/70; PULSE 123; RESP 18; TEMP 37.1; O2SAT 98
[2024-01-20] MEDS: Lithium Carbonate ER 300 MG TABLET.ER 1200 MG PO (22:14)
[2024-01-20] MEDS: Divalproex Sodium ER 500 MG TAB.ER.24H 1000 MG PO (22:15)
--- NOTE | 2024-01-21 09:00 | HO.PSYCHPN ---
Subjective Subjective Date of Service: 01/21/24 Reason For Visit: Unspecified Bipolar Interim History: Met with patient; discussed with team Patient reports slept well and not tired during the day. Remains in much improved behavioral and impulse control, no sexual comments and much more organized. Complaining of cyst on right buttocks cleft which he has had before and in the past needed it surgically lanced. Patient says it is very painful. Sole Leveler Machine placed surgical consult Mental Status Exam Mental Status Exam Narrative: Pt is alert and oriented; behavior overall calm and organized, cooperative; no sexually inappropriate remarks; still some intermittent delusional comments but less so; patient is not in distress; dressed in hospital attire, adequate hygiene and grooming; mood is described as okay and affect congruent, calm; eye contact limited (legally blind); Speech is normal rate, volume and prosody; not pressured; no psychomotor agitation present; thought process is concrete, goal directed; Thought content is on cyst on buttocks; discharge, getting back to work, medications; intermittent delusional thinking; denies any SI/HI. Patient insight and judgment impaired though much improved and likely close to or at baseline Diagnostics Vital Signs (24Hr): Vital Signs - 24 hr 01/20/24 20:00 Temperature 98.8 F Pulse Rate 123 H Respiratory Rate 18 Blood Pressure 122/70 Pulse Oximetry 98 Oxygen Delivery Method Room Air BMI result Body Mass Index 35.8 Labs 01/08/24 15:03 01/21/24 11:34 Labs: Laboratory Results - last 48 hr 01/19/24 08:34 Total Bilirubin 0.4 Direct Bilirubin 0.1 AST 20 ALT 36 Alkaline Phosphatase 89 Total Protein 7.1 Albumin 4.5 Medications Medications Current Medications Acetaminophen (Acetaminophen 325 Mg Tablet) 975 mg PO Q8H PRN PRN Reason: Analgesia Last Admin: 01/16/24 10:48 Dose: 975 mg Al Hydroxide/Mg Hydroxide (Magnesium Hydrox/Alum Hydrox 30 Ml Oral.Susp) 30 ml PO Q6H PRN PRN Reason: Heartburn/Nausea Benzocaine (Throat Lozenge, Medicated Lozenge) 1 lozenge MUCOUS MEM Q2H PRN PRN Reason: Sore Throat Chlorpromazine HCl 200 mg/ (Chlorpromazine HCl 25 mg) 225 mg PO BID [place]IEGO Last Admin: 01/20/24 22:15 Dose: 225 mg Divalproex Sodium (Divalproex Sodium Er 500 Mg Tab.Er.24h) 1,000 mg PO BEDTIME [facility] Last Admin: 01/20/24 22:15 Dose: 1,000 mg Hydroxyzine HCl (Hydroxyzine Hcl 25 Mg Tablet) 25 mg PO Q6H PRN PRN Reason: Anxiety Last Admin: 01/19/24 21:57 Dose: 25 mg Levothyroxine Sodium (Levothyroxine Sodium 25 Mcg Tablet) 25 mcg PO DAILY@0900 [facility] Last Admin: 01/20/24 09:15 Dose: 25 mcg [place] Carbonate ([place] Carbonate Er 300 Mg Tablet.Er) 1,200 mg PO BEDTIME [facility] Last Admin: 01/20/24 22:14 Dose: 1,200 mg Magnesium Hydroxide (Milk Of Magnesia 30 Ml Oral.Susp) 30 ml PO DAILY PRN PRN Reason: Constipation Metformin HCl (Metformin Hcl 850 Mg Tablet) 850 mg PO BID [facility] Last Admin: 01/20/24 22:15 Dose: 850 mg Nicotine Polacrilex (Nicotine Polacrilex 2 Mg Gum) 4 mg BUCCAL Q2H PRN PRN Reason: Nicotine Cravings Olanzapine (Olanzapine Odt 10 Mg Tab.Rapdis) 10 mg TRANSLINGU DAILY PRN PRN Reason: psychosis Last Admin: 01/11/24 06:22 Dose: 10 mg Topiramate (Topiramate 25 Mg Tablet) 50 mg PO BID [facility] Last Admin: 01/20/24 22:14 Dose: 50 mg Vitamin D (Cholecalciferol (Vitamin D3) 25 Mcg Tablet) 25 mcg PO DAILY [facility] Last Admin: 01/20/24 09:15 Dose: 25 mcg Allergies Allergies Allergy/AdvReac Type Severity Reaction Status Date / Time stimulant medication AdvReac Severe agitation Uncoded 01/16/24 09:52 Assessment & Plan Assessment & Plan (1) Schizophrenia, chronic condition: Status: Acute Code(s): F20.9 - Schizophrenia, unspecified (2) Hypothyroidism: Status: Acute Code(s): E03.9 - Hypothyroidism, unspecified (3) Type 2 diabetes mellitus: Status: Acute Code(s): E11.9 - Type 2 diabetes mellitus without complications Plan 23 yo with extensive hx of psychiatric conditions - unclear guardianship or HCP, living in halfway acute decompensation of disorder- Hospital course: 01/07 more calm after olanzapine 20mg, today - ? if lower chlorpromazine prns- , got ekg and follow up lab I had ordered 01/08 Over the weekend, patient louder, naked in the hallway and shouting violent threats towards staff; lost privilege of using walking cane. Overnight little sleep, only 3 hours Today, patient still walking up and down the [place] and Intermittently yelling or saying various provocative statements such as the N word towards staff; yelled a genital epithet toward staff/peer; other sexual comments; however, he seems to be more verbally redirectable and has not made any verbal threats so far. Still intermittently disrobing. -Sole Leveler Machine asked why he would make these provocative statements or comments; patient says I see images... Images of snow on the roof, reindeer, bright lights... He also says I yell out loud what I hear... On inquiry patient denies auditory hallucinations and recalibrates to say he yells what his mind is thinking. He says medications help and that they seem to calm him down. During one-to-one conversation patient calm, even polite with senior medical writer, answering questions as asked without much elaboration. 01/09 Patient remains disorganized. He is still pacing the [place], intermittently saying inappropriate sexual remarks but he is no longer yelling them and is noticeably more polite and deferential, more easily redirected. Still moments of disrobing. 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 At baseline no psychotic symptoms present -slept some last night -senior medical writer discussed patients baseline functioning and patient agreed to stay longer for more stabilization; sign CV -looks like Zyprexa was recently started at ED; obtained home medication regimen from halfway which includes: lithium ER 600 mg b.i.d. Thorazine to 225 mg b.i.d. Topamax 50 mg b.i.d. -continue current regimen for now; will likely add Topamax 01/10 patient remains disorganized with same behaviors however he is overall less intense, more polite and more easily redirectable. Some insight in that he agrees he needs to stop making inappropriate comments, though not sure if he is capable of this yet. -lithium level WNL; associated labs WNL -will restart Topamax which is his home medication -Will switch Thorazine, which was started at a recent hospitalization, to bedtime since he did not sleep last night. This point will otherwise continue current regimen as patient seems to be slowly improving. 01/11: Remains delusional and disorganized/disinhibited. Continue current management and treatment plan and monitoring response to medications 01/12: Continue current plan of care. 01/13: Continue current management and treatment plan. Improving but remains quite psychotic. 01/14: Continue current management and treatment plan. Improved but remains psychotic. 01/15 Patient intermittently agitated over the weekend but overall remains more stable than on admission. Did not sleep last night. Making some delusional comments, that there was a bunch of [place] he is taking over something in the police were called... Patient tells senior medical writer that he is still confused and says I feel like a child right now... Reports continued racing thoughts. Discussed medications and patient agrees to get on Depakote. 01/16 Patient slept last night having started Depakote Still making inappropriate comments but redirectable. Today he lashed out at his one-to-one staff, saying ... Why did you call me a pedophile however patient quickly apologized. He tells senior medical writer that today he feels more clear minded and agrees to continue with Depakote. Would like Zyprexa to be lowered to which senior medical writer agreed Patient reported sore throat but refused throat culture. -discussed his making inappropriate comments and patient apologized saying he does not want to do that 01/17 Patient says he is feeling better and maybe back to his regular self. He shares a bizarre idea about a place that all of us can go.. Referring to staff and the patients on the unit, saying he wants to go somewhere near [place] were everyone can stay. Otherwise he is sleeping better and says he wants to get off any medication that makes him tired during the day because he needs to work at [employer]. He asks when he can discharge home and was grateful to understand that halfway wants him back. He agrees to DC clonidine; agrees to continue taking Depakote and get labs; discussed Zyprexa and patient agrees to have it tapered since he was not on this previously 01/18 asks for levothyroxine to be changed to 9am since he feels it is too much to take med indications 3 times a day Today much improved in terms of abstaining from making inappropriate comments; so far more appropriate during group meetings increasing Depakote ER to 1000mg since level subtherapeutic; patient agrees. still intermittent makes delusional comments but seems to be less so... 01/19 Patient doing much better today and though still some odd semi delusional remarks, no sexually inappropriate ones and doing well in groups. Patient sleepy today and not sure why. Discussed medication regimens and he would like trazodone taken down since he is wondering if that is what made him groggy today. Patient very concerned about being sleepy when he get back to work 01/20 remains doing much better, no sexual remarks, much less paranoid delusional comments, sleeping well and overall appropriate with peers and staff; complains of cyst on right upper buttocks and surgical consult placed -not tired during the day after discontinuing both trazodone and Zyprexa at bedtime Plan: CV Q 15 minute checks Continue Thorazine to 225 mg b.i.d. Continue Depakote ER 1000mg qhs; Depakote level subtherapeutic DC Zyprexa medication was started at [facility], last psych hospitalization a week before this 1) Continue lithium ER 1200 mg, but make a q.h.s. (rather than 600 mg b.i.d.to help with poor sleep) DC'd clonidine; patient said it makes him tired and does not want Continue levothyroxine 25 mcg daily at 09:00 Continue metformin 850 mg b.i.d. DC trazodone Patient has Zyprexa 10 mg daily p.r.n. Patient educated on: diagnosis, medication risk/benefits and medical condition Informed Consent: understands Reason for continued inpatient stay Substantial Risk for: rapid decompensation Time Spent With Patient Time: Total time managing care of this patient today ____ minutes.
[2024-01-21 09:19] VITALS: BP 133/66; PULSE 102; RESP 16; TEMP 36.8; O2SAT 97
[2024-01-21] MEDS: metFORMIN HCl 850 MG TABLET PO ×2 (09:32→21:47)
[2024-01-21] MEDS: Levothyroxine Sodium 25 MCG TABLET PO (09:32)
[2024-01-21] MEDS: CHLORPROMAZINE 225 MG PO ×2 (09:32→21:47)
[2024-01-21] MEDS: Topiramate 25 MG TABLET 50 MG PO ×2 (09:32→21:47)
[2024-01-21] MEDS: Cholecalciferol (Vitamin D3) 25 MCG TABLET PO (09:32)
[2024-01-21 12:06] LABS: Creatinine Clr Calc Pharmacy 122.8; Estimated Glomerular Filt Rate > 60
[2024-01-21 21:00] VITALS: BP 139/71; PULSE 98; RESP 18; O2SAT 96
[2024-01-21] MEDS: Lithium Carbonate ER 300 MG TABLET.ER 1200 MG PO (21:47)
[2024-01-21] MEDS: Divalproex Sodium ER 500 MG TAB.ER.24H 1000 MG PO (21:47)
[2024-01-21] MEDS: Acetaminophen 325 MG TABLET 975 MG PO (22:38)
[2024-01-21] MEDS: hydrOXYzine HCL 25 MG TABLET PO (22:38)
[2024-01-22 00:57] VITALS: BP 128/78; PULSE 118; RESP 16; TEMP 37.1; O2SAT 96
--- NOTE | 2024-01-22 01:00 | PC.NURSE ---
Pt OOB complaining that My heart is beating really fast Pt appears flushed, warm to touch. VS taken. Pt denies dizziness, weakness, N/V or other symptoms, complains that my room is too hot. RN found pt had 5 blankets, encouraged to try sleeping under only one blanket tonight, ice pack provided to pt who placed on head after lying down. Will continue to monitor. HR mildly elevated at 118, BP WNL.
[2024-01-22 08:11] LABS: Ammonia 54 umol/L (13-55)
[2024-01-22 08:17] LABS: Valproate 40.3 mcg/mL (50.0-100.0)
[2024-01-22 08:22] LABS: Alanine Aminotransferase 29 U/L (0-40); Albumin Level 4.2 g/dL (3.5-5.0); Alkaline Phosphatase 70 U/L (39-117); Aspartate Amino Transferase 18 U/L (5-37); Bilirubin Direct 0.1 mg/dL (0.0-0.5); Bilirubin Total 0.3 mg/dL (0.0-1.0); Total Protein 6.9 g/dL (6.5-8.0)
[2024-01-22] MEDS: Topiramate 25 MG TABLET 50 MG PO ×2 (09:04→21:56)
[2024-01-22] MEDS: CHLORPROMAZINE 225 MG PO ×2 (09:04→21:57)
[2024-01-22] MEDS: Cholecalciferol (Vitamin D3) 25 MCG TABLET PO (09:04)
[2024-01-22] MEDS: Levothyroxine Sodium 25 MCG TABLET PO (09:04)
[2024-01-22] MEDS: metFORMIN HCl 850 MG TABLET PO ×2 (09:04→21:56)
--- NOTE | 2024-01-22 09:51 | P.CONGS_ITS ---
History of Present Illness Consult details Consult date: 01/22/24 Requesting physician: Harmeet Sotelo Narrative: 23-year-old male patient admitted to with complaints of pain in the intergluteal cleft. He reports a prior history of an abscess in this location which required incision and drainage. The current episode has been slowly getting larger and causing more discomfort. He denies fever or chills. Surgical consultation was requested for further management. Review of Systems 2 Review of Systems: Yes all other systems are reviewed and are negative [facility] Past Medical History Medical History (Updated 01/22/24 @ 09:54 by Dusty Sullivan MD) Type 2 diabetes mellitus Hypothyroidism Surgical History Surgical History (Updated 01/07/24 @ 13:14 by Fariba Dasilva MD) No pertinent past surgical history Social History Social History Household Members: Family Housing: Other Housing Other:: Snf Patient Tobacco Use Status: Never used Tobacco Use of substances other than those prescribed or required for medical reasons: No Currently Displaying Signs/Symptoms of Drug Intoxication Withdrawal: No Advance Directives: No Advance Directives Information Provided: No Do you have thoughts of harming others: None Do you have a plan to hurt others: No Plan Recently lost weight without trying: No Eating poorly because of decreased appetite: No Nutrition Risks: No Nutritional Risk service: No Sexual orientation: Straight/Heterosexual Meds Allergies Allergy/AdvReac Type Severity Reaction Status Date / Time stimulant medication AdvReac Severe agitation Uncoded 01/16/24 09:52 Active Medications: Current Medications Acetaminophen (Acetaminophen 325 Mg Tablet) 975 mg PO Q8H PRN PRN Reason: Analgesia Last Admin: 01/21/24 22:38 Dose: 975 mg Al Hydroxide/Mg Hydroxide (Magnesium Hydrox/Alum Hydrox 30 Ml Oral.Susp) 30 ml PO Q6H PRN PRN Reason: Heartburn/Nausea Benzocaine (Throat Lozenge, Medicated Lozenge) 1 lozenge MUCOUS MEM Q2H PRN PRN Reason: Sore Throat Chlorpromazine HCl 200 mg/ (Chlorpromazine HCl 25 mg) 225 mg PO BID [place]IEGO Last Admin: 01/22/24 09:04 Dose: 225 mg Divalproex Sodium (Divalproex Sodium Er 500 Mg Tab.Er.24h) 1,000 mg PO BEDTIME [facility] Last Admin: 01/21/24 21:47 Dose: 1,000 mg Hydroxyzine HCl (Hydroxyzine Hcl 25 Mg Tablet) 25 mg PO Q6H PRN PRN Reason: Anxiety Last Admin: 01/21/24 22:38 Dose: 25 mg Levothyroxine Sodium (Levothyroxine Sodium 25 Mcg Tablet) 25 mcg PO DAILY@0900 [facility] Last Admin: 01/22/24 09:04 Dose: 25 mcg [place] Carbonate ([place] Carbonate Er 300 Mg Tablet.Er) 1,200 mg PO BEDTIME [facility] Last Admin: 01/21/24 21:47 Dose: 1,200 mg Magnesium Hydroxide (Milk Of Magnesia 30 Ml Oral.Susp) 30 ml PO DAILY PRN PRN Reason: Constipation Metformin HCl (Metformin Hcl 850 Mg Tablet) 850 mg PO BID [facility] Last Admin: 01/22/24 09:04 Dose: 850 mg Nicotine Polacrilex (Nicotine Polacrilex 2 Mg Gum) 4 mg BUCCAL Q2H PRN PRN Reason: Nicotine Cravings Olanzapine (Olanzapine Odt 10 Mg Tab.Rapdis) 10 mg TRANSLINGU DAILY PRN PRN Reason: psychosis Last Admin: 01/11/24 06:22 Dose: 10 mg Topiramate (Topiramate 25 Mg Tablet) 50 mg PO BID [facility] Last Admin: 01/22/24 09:04 Dose: 50 mg Vitamin D (Cholecalciferol (Vitamin D3) 25 Mcg Tablet) 25 mcg PO DAILY [facility] Last Admin: 01/22/24 09:04 Dose: 25 mcg Home Medications ?Medication ?Instructions ?Recorded ?Confirmed ?Last Taken ?Type acetaminophen 500 mg tablet 1,000 mg PO Q8-10H PRN Analgesia 01/06/24 01/06/24 Unknown History chlorpromazine 100 mg tablet 225 mg PO BID 01/06/24 01/06/24 Unknown History cholecalciferol (vitamin D3) 25 25 mcg PO DAILY 01/06/24 01/06/24 Unknown History mcg (1,000 unit) capsule levothyroxine 25 mcg tablet 25 mcg PO DAILY 01/06/24 01/06/24 Unknown History lithium carbonate 300 mg 600 mg PO BID 01/06/24 01/06/24 Unknown History tablet,extended release (Lithobid) metformin 850 mg tablet 850 mg PO BID 01/06/24 01/06/24 Unknown History omega-3 acid ethyl esters 1 gram 1 g PO DAILY 01/06/24 01/06/24 Unknown History capsule Physical Exam 2 Vital Signs: Vital Signs: Last Vital Signs Temp 98.8 F 01/22/24 00:57 Pulse 118 H 01/22/24 00:57 Resp 16 01/22/24 00:57 BP 128/78 01/22/24 00:57 Pulse Ox 96 01/22/24 00:57 O2 Del Method Room Air 01/22/24 00:57 BMI result Body Mass Index 35.8 Const: Other: Resting in bed in no acute distress HEENT: Head: Yes normocephalic and Yes atraumatic Ears: hearing grossly normal bilaterally Resp: Effort & Inspection: normal respiratory effort, no audible wheezes, no cough and no respiratory distress GI: Inspection: Yes normal to inspection Palpation (GI): Soft to palpation and nontender Back/Spine/Pelvis: Back/spine/pelvis image: 1. Area of swelling in the right buttock wall just adjacent to the intergluteal cleft. No erythema is appreciated. There is fullness to palpation but no fluctuance. Previous incision is noted slightly superior to this. No clear abscess at this time. Extrem: General: Yes no clubbing, cyanosis or edema Results Labs 01/08/24 15:03 01/21/24 11:34 Labs: Abnormal lab results 01/22/24 Range/Units 07:41 Valproic Acid 40.3 L (50.0-100.0) mcg/mL BMP 01/21/24 11:34 Creatinine 0.97 Liver Function 01/22/24 Range/Units 07:41 Total Bilirubin 0.3 (0.0-1.0) mg/dL Direct Bilirubin 0.1 (0.0-0.5) mg/dL AST 18 (5-37) U/L ALT 29 (0-40) U/L Alkaline Phosphatase 70 (39-117) U/L Albumin 4.2 (3.5-5.0) g/dL All other labs normal. Assessment and Plan (1) Pilonidal cyst of cleft: Status: Acute Plan Patient with a recurrent pilonidal cyst which was previously incised and drained. Patient currently has an area of phlegmon but no clear abscess at this time. Recommend starting oral antibiotics and watching over the next several days. Discussed with the patient he expressed understanding. Procedures Date of Service Date of Service: 01/22/24
--- NOTE | 2024-01-22 10:32 | P.PNPSI_ITS ---
Subjective Subjective Date of Service: 01/22/24 Reason For Visit: Unspecified Bipolar Interim History: Met with patient; discussed with team Patient remains with much improved behaviors. Still intermittently delusional in today said he was unable to walk or use his legs; however he walked with typewriter operator automatic up and down the [place] and realize that he could use his legs just fine; he concluded that in his cramped bedroom it appeared as if he could not move his legs but once in the hallway with more space, he realized it was a misperception. Discussed boil on right buttock cleft; patient understands surgical team starting patient on antibiotic to see if that helps resolve; otherwise considering surgical excision Mental Status Exam Mental Status Exam Narrative: Pt is alert and oriented; behavior overall calm and organized, cooperative; appropriate with peers and staff; still some intermittent delusional comments but less so; patient is not in distress; dressed in hospital attire, adequate hygiene and grooming; mood is described as okay and affect congruent, calm; eye contact limited (legally blind); Speech is normal rate, volume and prosody; not pressured; no psychomotor agitation present; thought process is concrete, goal directed; Thought content is on pilonidal cyst on buttocks; discharge, getting back to work, medications; intermittent delusional thinking; denies any SI/HI. Patient insight and judgment impaired though much improved and likely close to or at baseline Diagnostics Vital Signs (24Hr): Vital Signs - 24 hr 01/21/24 21:00 01/22/24 00:57 Temperature 98.8 F Pulse Rate 98 118 H Respiratory Rate 18 16 Blood Pressure 139/71 128/78 Pulse Oximetry 96 96 Oxygen Delivery Method Room Air Room Air BMI result Body Mass Index 35.8 Labs 01/08/24 15:03 01/21/24 11:34 Labs: Laboratory Results - last 48 hr 01/21/24 01/22/24 11:34 07:41 Creatinine 0.97 Estim Creat Clear Calc 122.8 Estimated GFR > 60 Total Bilirubin 0.3 Direct Bilirubin 0.1 AST 18 ALT 29 Alkaline Phosphatase 70 Ammonia 54 Total Protein 6.9 Albumin 4.2 Valproic Acid 40.3 L Medications Medications Current Medications Acetaminophen (Acetaminophen 325 Mg Tablet) 975 mg PO Q8H PRN PRN Reason: Analgesia Last Admin: 01/21/24 22:38 Dose: 975 mg Al Hydroxide/Mg Hydroxide (Magnesium Hydrox/Alum Hydrox 30 Ml Oral.Susp) 30 ml PO Q6H PRN PRN Reason: Heartburn/Nausea Amoxicillin/Clavulanate Potassium (Amoxicillin/Potassium Clav 500 Mg Tablet) 500 mg PO Q8H [facility] Stop: 01/29/24 09:56 Benzocaine (Throat Lozenge, Medicated Lozenge) 1 lozenge MUCOUS MEM Q2H PRN PRN Reason: Sore Throat Chlorpromazine HCl 200 mg/ (Chlorpromazine HCl 25 mg) 225 mg PO BID [facility] Last Admin: 01/22/24 09:04 Dose: 225 mg Divalproex Sodium (Divalproex Sodium Er 500 Mg Tab.Er.24h) 1,000 mg PO BEDTIME [facility] Last Admin: 01/21/24 21:47 Dose: 1,000 mg Hydroxyzine HCl (Hydroxyzine Hcl 25 Mg Tablet) 25 mg PO Q6H PRN PRN Reason: Anxiety Last Admin: 01/21/24 22:38 Dose: 25 mg Levothyroxine Sodium (Levothyroxine Sodium 25 Mcg Tablet) 25 mcg PO DAILY@0900 [facility] Last Admin: 01/22/24 09:04 Dose: 25 mcg [place] Carbonate ([place] Carbonate Er 300 Mg Tablet.Er) 1,200 mg PO BEDTIME [facility] Last Admin: 01/21/24 21:47 Dose: 1,200 mg Magnesium Hydroxide (Milk Of Magnesia 30 Ml Oral.Susp) 30 ml PO DAILY PRN PRN Reason: Constipation Metformin HCl (Metformin Hcl 850 Mg Tablet) 850 mg PO BID [facility] Last Admin: 01/22/24 09:04 Dose: 850 mg Nicotine Polacrilex (Nicotine Polacrilex 2 Mg Gum) 4 mg BUCCAL Q2H PRN PRN Reason: Nicotine Cravings Olanzapine (Olanzapine Odt 10 Mg Tab.Rapdis) 10 mg TRANSLINGU DAILY PRN PRN Reason: psychosis Last Admin: 01/11/24 06:22 Dose: 10 mg Topiramate (Topiramate 25 Mg Tablet) 50 mg PO BID [facility] Last Admin: 01/22/24 09:04 Dose: 50 mg Vitamin D (Cholecalciferol (Vitamin D3) 25 Mcg Tablet) 25 mcg PO DAILY [facility] Last Admin: 01/22/24 09:04 Dose: 25 mcg Allergies Allergies Allergy/AdvReac Type Severity Reaction Status Date / Time stimulant medication AdvReac Severe agitation Uncoded 01/16/24 09:52 Assessment & Plan Assessment & Plan (1) Schizophrenia, chronic condition: Status: Acute Code(s): F20.9 - Schizophrenia, unspecified (2) Hypothyroidism: Status: Acute Code(s): E03.9 - Hypothyroidism, unspecified (3) Type 2 diabetes mellitus: Status: Acute Code(s): E11.9 - Type 2 diabetes mellitus without complications (4) Pilonidal cyst of zi cleft: Status: Acute Code(s): L05.91 - Pilonidal cyst without abscess Plan 23 yo with extensive hx of psychiatric conditions - unclear guardianship or HCP, living in long term acute decompensation of disorder- Hospital course: 01/07 more calm after olanzapine 20mg, today - ? if lower chlorpromazine prns- , got ekg and follow up lab I had ordered 01/08 Over the weekend, patient louder, naked in the hallway and shouting violent threats towards staff; lost privilege of using walking cane. Overnight little sleep, only 3 hours Today, patient still walking up and down the [place] and Intermittently yelling or saying various provocative statements such as the N word towards staff; yelled a genital epithet toward staff/peer; other sexual comments; however, he seems to be more verbally redirectable and has not made any verbal threats so far. Still intermittently disrobing. -Bioinformatics Technician asked why he would make these provocative statements or comments; patient says I see images... Images of snow on the roof, reindeer, bright lights... He also says I yell out loud what I hear... On inquiry patient denies auditory hallucinations and recalibrates to say he yells what his mind is thinking. He says medications help and that they seem to calm him down. During one-to-one conversation patient calm, even polite with typewriter operator automatic, answering questions as asked without much elaboration. 01/09 Patient remains disorganized. He is still pacing the [place], intermittently saying inappropriate sexual remarks but he is no longer yelling them and is noticeably more polite and deferential, more easily redirected. Still moments of disrobing. 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 At baseline no psychotic symptoms present -slept some last night -typewriter operator automatic discussed patients baseline functioning and patient agreed to stay longer for more stabilization; sign CV -looks like Zyprexa was recently started at ED; obtained home medication regimen from long term which includes: lithium ER 600 mg b.i.d. Thorazine to 225 mg b.i.d. Topamax 50 mg b.i.d. -continue current regimen for now; will likely add Topamax 01/10 patient remains disorganized with same behaviors however he is overall less intense, more polite and more easily redirectable. Some insight in that he agrees he needs to stop making inappropriate comments, though not sure if he is capable of this yet. -lithium level WNL; associated labs WNL -will restart Topamax which is his home medication -Will switch Thorazine, which was started at a recent hospitalization, to bedtime since he did not sleep last night. This point will otherwise continue current regimen as patient seems to be slowly improving. 01/11: Remains delusional and disorganized/disinhibited. Continue current management and treatment plan and monitoring response to medications 01/12: Continue current plan of care. 01/13: Continue current management and treatment plan. Improving but remains quite psychotic. 01/14: Continue current management and treatment plan. Improved but remains psychotic. 01/15 Patient intermittently agitated over the weekend but overall remains more stable than on admission. Did not sleep last night. Making some delusional comments, that there was a bunch of [place] he is taking over something in the police were called... Patient tells typewriter operator automatic that he is still confused and says I feel like a child right now... Reports continued racing thoughts. Discussed medications and patient agrees to get on Depakote. 01/16 Patient slept last night having started Depakote Still making inappropriate comments but redirectable. Today he lashed out at his one-to-one staff, saying ... Why did you call me a pedophile however patient quickly apologized. He tells typewriter operator automatic that today he feels more clear minded and agrees to continue with Depakote. Would like Zyprexa to be lowered to which typewriter operator automatic agreed Patient reported sore throat but refused throat culture. -discussed his making inappropriate comments and patient apologized saying he does not want to do that 01/17 Patient says he is feeling better and maybe back to his regular self. He shares a bizarre idea about a place that all of us can go.. Referring to staff and the patients on the unit, saying he wants to go somewhere near [place] were everyone can stay. Otherwise he is sleeping better and says he wants to get off any medication that makes him tired during the day because he needs to work at [employer]. He asks when he can discharge home and was grateful to understand that long term wants him back. He agrees to DC clonidine; agrees to continue taking Depakote and get labs; discussed Zyprexa and patient agrees to have it tapered since he was not on this previously 01/18 asks for levothyroxine to be changed to 9am since he feels it is too much to take med indications 3 times a day Today much improved in terms of abstaining from making inappropriate comments; so far more appropriate during group meetings increasing Depakote ER to 1000mg since level subtherapeutic; patient agrees. still intermittent makes delusional comments but seems to be less so... 01/19 Patient doing much better today and though still some odd semi delusional remarks, no sexually inappropriate ones and doing well in groups. Patient sleepy today and not sure why. Discussed medication regimens and he would like trazodone taken down since he is wondering if that is what made him groggy today. Patient very concerned about being sleepy when he get back to work 01/20 remains doing much better, no sexual remarks, much less paranoid delusional comments, sleeping well and overall appropriate with peers and staff; complains of cyst on right upper buttocks and surgical consult placed -not tired during the day after discontinuing both trazodone and Zyprexa at bedtime 01/21 Patient remains with much improved behaviors; appropriate with peers and staff.? Still intermittently delusional in today said he was unable to walk or use his legs; however he walked with typewriter operator automatic up and down the [place] and realize that he could use his legs just fine; he concluded that in his cramped bedroom it appeared as if he could not move his legs but once in the hallway with more space, he realized it was a misperception. -Discussed pilonidal cyst on right buttock cleft; patient understands surgical team starting patient on antibiotic to see if that helps resolve; otherwise considering surgical excision Surgery rec: Patient currently has an area of phlegmon but no clear abscess at this time.? Recommend starting oral antibiotics and watching over the next several days.? Discussed with the patient he expressed understanding Plan: CV Q 15 minute checks -started on amoxicillin for pilonidal cyst Continue Thorazine to 225 mg b.i.d. Continue Depakote ER 1000mg qhs; Depakote level subtherapeutic DC Zyprexa medication was started at [facility], last [facility] hospitalization a week before this 1) Continue lithium ER 1200 mg, but make a q.h.s. (rather than 600 mg b.i.d.to help with poor sleep) DC'd clonidine; patient said it makes him tired and does not want Continue levothyroxine 25 mcg daily at 09:00 Continue metformin 850 mg b.i.d. DC trazodone Patient has Zyprexa 10 mg daily p.r.n. Patient educated on: diagnosis, medication risk/benefits and medical condition Informed Consent: understands Reason for continued inpatient stay Substantial Risk for: rapid decompensation Time Spent With Patient Time: Total time managing care of this patient today ____ minutes.
[2024-01-22] MEDS: Amoxicillin/Potassium Clav 500 MG TABLET PO ×2 (11:36→17:30)
[2024-01-22 20:00] VITALS: BP 124/70; PULSE 125; TEMP 36.5; O2SAT 96
[2024-01-22] MEDS: Lithium Carbonate ER 300 MG TABLET.ER 1200 MG PO (21:56)
[2024-01-22] MEDS: Divalproex Sodium ER 500 MG TAB.ER.24H 1000 MG PO (21:56)
[2024-01-22] MEDS: OLANZapine ODT 10 MG TAB.RAPDIS TRANSLINGU (22:57)
[2024-01-22] MEDS: Acetaminophen 325 MG TABLET 975 MG PO (23:17)
[2024-01-23] MEDS: Amoxicillin/Potassium Clav 500 MG TABLET PO ×3 (03:58→21:57)
[2024-01-23 07:19] LABS: Ammonia 44 umol/L (13-55)
[2024-01-23 07:24] LABS: Valproate 48.6 mcg/mL (50.0-100.0)
[2024-01-23 07:27] LABS: Alanine Aminotransferase 31 U/L (0-40); Albumin Level 4.6 g/dL (3.5-5.0); Alkaline Phosphatase 71 U/L (39-117); Aspartate Amino Transferase 21 U/L (5-37); Bilirubin Direct 0.1 mg/dL (0.0-0.5); Bilirubin Total 0.4 mg/dL (0.0-1.0); Total Protein 7.5 g/dL (6.5-8.0)
[2024-01-23] MEDS: CHLORPROMAZINE 225 MG PO ×2 (09:42→21:58)
[2024-01-23] MEDS: Topiramate 25 MG TABLET 50 MG PO ×2 (09:42→21:58)
[2024-01-23] MEDS: metFORMIN HCl 850 MG TABLET PO ×2 (09:43→21:57)
[2024-01-23] MEDS: Levothyroxine Sodium 25 MCG TABLET PO (09:43)
[2024-01-23] MEDS: Cholecalciferol (Vitamin D3) 25 MCG TABLET PO (09:43)
[2024-01-23 09:50] VITALS: BP 127/58; PULSE 104; RESP 16; TEMP 37.2; O2SAT 95
--- NOTE | 2024-01-23 13:17 | HO.PSYCHPN ---
Subjective Subjective Date of Service: 01/23/24 Reason For Visit: Unspecified Bipolar Interim History: met with patient; discussed with team Patient says he is doing okay and anticipating going home tomorrow. Says he is not sure about if he will continue working at [employer]. [employer] inquired since patient seemed to indicate he enjoyed this. 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 Discussed pilonidal cyst and antibiotics, for surgery Mental Status Exam Mental Status Exam Narrative: Pt is alert and oriented; behavior overall calm and organized, cooperative; appropriate with peers and staff; still some intermittent delusional comments but less so; patient is not in distress; dressed in hospital attire, adequate hygiene and grooming; mood is described as okay and affect congruent, calm; eye contact limited (legally blind); Speech is normal rate, volume and prosody; not pressured; no psychomotor agitation present; thought process is concrete, goal directed; Thought content is on pilonidal cyst on buttocks; discharge, getting back to work, medications; intermittent delusional thinking; denies any SI/HI. Patient insight and judgment impaired though much improved and likely close to or at baseline Diagnostics Vital Signs (24Hr): Vital Signs - 24 hr 01/22/24 20:00 01/23/24 09:50 Temperature 97.7 F 99.0 F Pulse Rate 125 H 104 H Respiratory Rate 16 Blood Pressure 124/70 127/58 L Pulse Oximetry 96 95 Oxygen Delivery Method Room Air Room Air BMI result Body Mass Index 35.8 Labs 01/08/24 15:03 01/21/24 11:34 Labs: Laboratory Results - last 48 hr 01/22/24 01/23/24 07:41 06:57 Total Bilirubin 0.3 0.4 Direct Bilirubin 0.1 0.1 AST 18 21 ALT 29 31 Alkaline Phosphatase 70 71 Ammonia 54 44 Total Protein 6.9 7.5 Albumin 4.2 4.6 Valproic Acid 40.3 L 48.6 L Medications Medications Current Medications Acetaminophen (Acetaminophen 325 Mg Tablet) 975 mg PO Q8H PRN PRN Reason: Analgesia Last Admin: 01/22/24 23:17 Dose: 975 mg Al Hydroxide/Mg Hydroxide (Magnesium Hydrox/Alum Hydrox 30 Ml Oral.Susp) 30 ml PO Q6H PRN PRN Reason: Heartburn/Nausea Amoxicillin/Clavulanate Potassium (Amoxicillin/Potassium Clav 500 Mg Tablet) 500 mg PO Q8H [facility] Stop: 01/29/24 09:56 Last Admin: 01/23/24 09:43 Dose: 500 mg Benzocaine (Throat Lozenge, Medicated Lozenge) 1 lozenge MUCOUS MEM Q2H PRN PRN Reason: Sore Throat Chlorpromazine HCl 200 mg/ (Chlorpromazine HCl 25 mg) 225 mg PO BID [facility] Last Admin: 01/23/24 09:42 Dose: 225 mg Divalproex Sodium (Divalproex Sodium Er 500 Mg Tab.Er.24h) 1,000 mg PO BEDTIME [facility] Last Admin: 01/22/24 21:56 Dose: 1,000 mg Hydroxyzine HCl (Hydroxyzine Hcl 25 Mg Tablet) 25 mg PO Q6H PRN PRN Reason: Anxiety Last Admin: 01/21/24 22:38 Dose: 25 mg Levothyroxine Sodium (Levothyroxine Sodium 25 Mcg Tablet) 25 mcg PO DAILY@0900 [facility] Last Admin: 01/23/24 09:43 Dose: 25 mcg Pitman Carbonate (Pitman Carbonate Er 300 Mg Tablet.Er) 1,200 mg PO BEDTIME [facility] Last Admin: 01/22/24 21:56 Dose: 1,200 mg Magnesium Hydroxide (Milk Of Magnesia 30 Ml Oral.Susp) 30 ml PO DAILY PRN PRN Reason: Constipation Metformin HCl (Metformin Hcl 850 Mg Tablet) 850 mg PO BID [facility] Last Admin: 01/23/24 09:43 Dose: 850 mg Nicotine Polacrilex (Nicotine Polacrilex 2 Mg Gum) 4 mg BUCCAL Q2H PRN PRN Reason: Nicotine Cravings Olanzapine (Olanzapine Odt 10 Mg Tab.Rapdis) 10 mg TRANSLINGU DAILY PRN PRN Reason: psychosis Last Admin: 01/22/24 22:57 Dose: 10 mg Topiramate (Topiramate 25 Mg Tablet) 50 mg PO BID [facility] Last Admin: 01/23/24 09:42 Dose: 50 mg Vitamin D (Cholecalciferol (Vitamin D3) 25 Mcg Tablet) 25 mcg PO DAILY [facility] Last Admin: 01/23/24 09:43 Dose: 25 mcg Allergies Allergies Allergy/AdvReac Type Severity Reaction Status Date / Time stimulant medication AdvReac Severe agitation Uncoded 01/16/24 09:52 Assessment & Plan Assessment & Plan (1) Schizophrenia, chronic condition: Status: Acute Code(s): F20.9 - Schizophrenia, unspecified (2) Hypothyroidism: Status: Acute Code(s): E03.9 - Hypothyroidism, unspecified (3) Type 2 diabetes mellitus: Status: Acute Code(s): E11.9 - Type 2 diabetes mellitus without complications (4) Pilonidal cyst of cleft: Status: Acute Code(s): L05.91 - Pilonidal cyst without abscess Plan 23 yo with extensive hx of psychiatric conditions - unclear guardianship or HCP, [facility] acute decompensation of disorder- Hospital course: 01/07 more calm after olanzapine 20mg, today - ? if lower chlorpromazine prns- , got ekg and follow up lab I had ordered 01/08 Over the weekend, patient louder, naked in the hallway and shouting violent threats towards staff; lost privilege of using walking cane. Overnight little sleep, only 3 hours Today, patient still walking up and down the [place] and Intermittently yelling or saying various provocative statements such as the N word towards staff; yelled a genital epithet toward staff/peer; other sexual comments; however, he seems to be more verbally redirectable and has not made any verbal threats so far. Still intermittently disrobing. -[employer]almer asked why he would make these provocative statements or comments; patient says I see images... Images of snow on the roof, reindeer, bright lights... He also says I yell out loud what I hear... On inquiry patient denies auditory hallucinations and recalibrates to say he yells what his mind is thinking. He says medications help and that they seem to calm him down. During one-to-one conversation patient calm, even polite with quality analyst/technical writer, answering questions as asked without much elaboration. 01/09 Patient remains disorganized. He is still pacing the [place], intermittently saying inappropriate sexual remarks but he is no longer yelling them and is noticeably more polite and deferential, more easily redirected. Still moments of disrobing. 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 At baseline no psychotic symptoms present -slept some last night -quality analyst/technical writer discussed patients baseline functioning and patient agreed to stay longer for more stabilization; sign CV -looks like Zyprexa was recently started at ED; [facility] medication regimen from [facility] which includes: lithium ER 600 mg b.i.d. Thorazine to 225 mg b.i.d. Topamax 50 mg b.i.d. -continue current regimen for now; will likely add Topamax 01/10 patient remains disorganized with same behaviors however he is overall less intense, more polite and more easily redirectable. Some insight in that he agrees he needs to stop making inappropriate comments, though not sure if he is capable of this yet. -lithium level WNL; associated labs WNL -will restart Topamax which is his home medication -Will switch Thorazine, which was started at a recent hospitalization, to bedtime since he did not sleep last night. This point will otherwise continue current regimen as patient seems to be slowly improving. 01/11: Remains delusional and disorganized/disinhibited. Continue current management and treatment plan and monitoring response to medications 01/12: Continue current plan of care. 01/13: Continue current management and treatment plan. Improving but remains quite psychotic. 01/14: Continue current management and treatment plan. Improved but remains psychotic. 01/15 Patient intermittently agitated over the weekend but overall remains more stable than on admission. Did not sleep last night. Making some delusional comments, that there was a bunch of [place] he is taking over something in the police were called... Patient tells quality analyst/technical writer that he is still confused and says I feel like a child right now... Reports continued racing thoughts. Discussed medications and patient agrees to get on Depakote. 01/16 Patient slept last night having started Depakote Still making inappropriate comments but redirectable. Today he lashed out at his one-to-one staff, saying ... Why did you call me a pedophile however patient quickly apologized. He tells quality analyst/technical writer that today he feels more clear minded and agrees to continue with Depakote. Would like Zyprexa to be lowered to which quality analyst/technical writer agreed Patient reported sore throat but refused throat culture. -discussed his making inappropriate comments and patient apologized saying he does not want to do that 01/17 Patient says he is feeling better and maybe back to his regular self. He shares a bizarre idea about a place that all of us can go.. Referring to staff and the patients on the unit, saying he wants to go somewhere near [place] were everyone can stay. Otherwise he is sleeping better and says he wants to get off any medication that makes him tired during the day because he needs to work at [employer]. He asks when he can discharge home and was grateful to understand that [facility] back. He agrees to DC clonidine; agrees to continue taking Depakote and get labs; discussed Zyprexa and patient agrees to have it tapered since he was not on this previously 01/18 asks for levothyroxine to be changed to 9am since he feels it is too much to take med indications 3 times a day Today much improved in terms of abstaining from making inappropriate comments; so far more appropriate during group meetings increasing Depakote ER to 1000mg since level subtherapeutic; patient agrees. still intermittent makes delusional comments but seems to be less so... 01/19 Patient doing much better today and though still some odd semi delusional remarks, no sexually inappropriate ones and doing well in groups. Patient sleepy today and not sure why. Discussed medication regimens and he would like trazodone taken down since he is wondering if that is what made him groggy today. Patient very concerned about being sleepy when he get back to work 01/20 remains doing much better, no sexual remarks, much less paranoid delusional comments, sleeping well and overall appropriate with peers and staff; complains of cyst on right upper buttocks and surgical consult placed -not tired during the day after discontinuing both trazodone and Zyprexa at bedtime 01/21 Patient remains with much improved behaviors; appropriate with peers and staff.? Still intermittently delusional in today said he was unable to walk or use his legs; however he walked with quality analyst/technical writer up and down the [place] and realize that he could use his legs just fine; he concluded that in his cramped bedroom it appeared as if he could not move his legs but once in the hallway with more space, he realized it was a misperception. -Discussed pilonidal cyst on right buttock cleft; patient understands surgical team starting patient on antibiotic to see if that helps resolve; otherwise considering surgical excision Surgery rec: Patient currently has an area of phlegmon but no clear abscess at this time.? Recommend starting oral antibiotics and watching over the next several days.? Discussed with the patient he expressed understanding 01/22 remains stable, overall good mood, appropriate peers and staff. Patient remains with some delusional thinking the intermittently expressed but is otherwise close to baseline. He is appropriate to return to the community for treatment. Will discuss with surgery regarding pilonidal cyst Plan: CV Q 15 minute checks -started on amoxicillin for pilonidal cyst Continue Thorazine to 225 mg b.i.d. Continue Depakote ER 1000mg qhs; Depakote level subtherapeutic DC Zyprexa medication was started at [facility], last [facility] hospitalization a week before this 1) Continue lithium ER 1200 mg, but make a q.h.s. (rather than 600 mg b.i.d.to help with poor sleep) DC'd clonidine; patient said it makes him tired and does not want Continue levothyroxine 25 mcg daily at 09:00 Continue metformin 850 mg b.i.d. DC trazodone Patient has Zyprexa 10 mg daily p.r.n. Patient educated on: diagnosis, medication risk/benefits and medical condition Informed Consent: understands Reason for continued inpatient stay Substantial Risk for: stable for discharge Time Spent With Patient Time: Total time managing care of this patient today ____ minutes.
[2024-01-23 20:00] VITALS: BP 127/73; PULSE 128; TEMP 36.6; O2SAT 96
[2024-01-23] MEDS: Divalproex Sodium ER 500 MG TAB.ER.24H 1000 MG PO (21:57)
[2024-01-23] MEDS: Lithium Carbonate ER 300 MG TABLET.ER 1200 MG PO (21:57)
[2024-01-23] MEDS: hydrOXYzine HCL 25 MG TABLET PO (23:12)
[2024-01-24 08:00] VITALS: RESP 18
--- NOTE | 2024-01-24 09:19 | P.DS_ITS ---
DS: Providers Provider Date of Service: 01/24/24 Date of admission: 01/06/24 18:46 Date of discharge: 01/24/24 Primary care physician: Unknown Physician Attending physician on admission: Saray Macias Consults: 01/06/24 19:18 Consult to Hospitalist Routine Comment: Consulting Provider: [facility] Hospitalists Reason For Exam: OSH admission 01/21/24 13:33 Consult to General Surgery Routine Consulting Provider: [facility] General Surgeons Reason for consultation: boil/cyst right buttock cleft Attending physician on discharge: Harmeet Sotelo DS: Diagnosis Discharge Diagnosis (1) Schizophrenia, chronic condition: Status: Acute (2) Hypothyroidism: Status: Acute (3) Type 2 diabetes mellitus: Status: Acute (4) Pilonidal cyst of cleft: Status: Acute DS: Medications Discharge Medications Home Medications: Home Medications ?Medication ?Instructions ?Recorded ?Confirmed acetaminophen 500 mg tablet 1,000 mg PO Q8-10H PRN Analgesia 01/06/24 01/06/24 Previous Rx's ?Medication ?Instructions ?Recorded amoxicillin 500 mg-potassium 1 tab PO TID 5 days #15 tabs 01/24/24 clavulanate 125 mg tablet chlorpromazine 200 mg tablet 200 mg PO BID 30 days #60 tabs 01/24/24 chlorpromazine 25 mg tablet 25 mg PO BID 30 days #60 tabs 01/24/24 cholecalciferol (vitamin D3) 25 25 mcg PO DAILY 30 days #30 caps 01/24/24 mcg (1,000 unit) capsule divalproex 500 mg tablet,extended 1,000 mg (2 x 500 mg) PO BEDTIME 01/24/24 release 24 hr 30 days #60 tabs levothyroxine 25 mcg tablet 25 mcg PO DAILY 30 days #30 tabs 01/24/24 lithium carbonate 300 mg 1,200 mg (4 x 300 mg) PO BEDTIME 01/24/24 tablet,extended release (Lithobid) 30 days #120 tabs metformin 850 mg tablet 850 mg PO BID 30 days #60 tabs 01/24/24 olanzapine 10 mg tablet (Zyprexa) 10 mg PO DAILY PRN agitation 30 01/24/24 days #30 tabs omega-3 acid ethyl esters 1 gram 1 g PO DAILY 30 days #30 caps 01/24/24 capsule topiramate 50 mg tablet 50 mg PO BID 30 days #60 tabs 01/24/24 trazodone 50 mg tablet 50 mg PO BEDTIME PRN insomnia 30 01/24/24 days #30 tabs Data Data Completed and Pending Completed studies during hospitalization [Text1]: 01/17/24 01/19/24 01/21/24 09:23 08:34 11:34 Creatinine 1.03 0.97 Estim Creat Clear Calc 115.6 122.8 Estimated GFR > 60 > 60 Total Bilirubin 0.4 Direct Bilirubin 0.1 AST 20 ALT 36 Alkaline Phosphatase 89 Ammonia 33 Total Protein 7.1 Albumin 4.5 Valproic Acid 36.6 L 01/22/24 01/23/24 07:41 06:57 Creatinine Estim Creat Clear Calc Estimated GFR Total Bilirubin 0.3 0.4 Direct Bilirubin 0.1 0.1 AST 18 21 ALT 29 31 Alkaline Phosphatase 70 71 Ammonia 54 44 Total Protein 6.9 7.5 Albumin 4.2 4.6 Valproic Acid 40.3 L 48.6 L DS: Summary Hospital Course Hospital Course: 23 yo with extensive hx of psychiatric conditions - unclear guardianship or HCP, living in [facility] acute decompensation of disorder- Hospital course: 01/07 more calm after olanzapine 20mg, today - ? if lower chlorpromazine prns- , got ekg and follow up lab I had ordered 01/08 Over the weekend, patient louder, naked in the hallway and shouting violent threats towards staff; lost privilege of using walking cane. Overnight little sleep, only 3 hours Today, patient still walking up and down the [place] and Intermittently yelling or saying various provocative statements such as the N word towards staff; yelled a genital epithet toward staff/peer; other sexual comments; however, he seems to be more verbally redirectable and has not made any verbal threats so far. Still intermittently disrobing. -Grocery Worker asked why he would make these provocative statements or comments; patient says I see images... Images of snow on the roof, reindeer, bright lights... He also says I yell out loud what I hear... On inquiry patient denies auditory hallucinations and recalibrates to say he yells what his mind is thinking. He says medications help and that they seem to calm him down. During one-to-one conversation patient calm, even polite with keno writer / runner, answering questions as asked without much elaboration. 01/09 Patient remains disorganized. He is still pacing the [place], intermittently saying inappropriate sexual remarks but he is no longer yelling them and is noticeably more polite and deferential, more easily redirected. Still moments of disrobing. 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 At baseline no psychotic symptoms present -slept some last night -keno writer / runner discussed patients baseline functioning and patient agreed to stay [facility] for more stabilization; sign CV -looks like Zyprexa was recently started at ED; obtained home medication regimen from [facility] which includes: lithium ER 600 mg b.i.d. Thorazine to 225 mg b.i.d. Topamax 50 mg b.i.d. -continue current regimen for now; will likely add Topamax 01/10 patient remains disorganized with same behaviors however he is overall less intense, more polite and more easily redirectable. Some insight in that he agrees he needs to stop making inappropriate comments, though not sure if he is capable of this yet. -lithium level WNL; associated labs WNL -will restart Topamax which is his home medication -Will switch Thorazine, which was started at a recent hospitalization, to bedtime since he did not sleep last night. This point will otherwise continue current regimen as patient seems to be slowly improving. 01/11: Remains delusional and disorganized/disinhibited. Continue current management and treatment plan and monitoring response to medications 01/12: Continue current plan of care. 01/13: Continue current management and treatment plan. Improving but remains quite psychotic. 01/14: Continue current management and treatment plan. Improved but remains ps ychotic. 01/15 Patient intermittently agitated over the weekend but overall remains more stable than on admission. Did not sleep last night. Making some delusional comments, that there was a bunch of [place] he is taking over something in the police were called... Patient tells keno writer / runner that he is still confused and says I feel like a child right now... Reports continued racing thoughts. Disc ussed medications and patient agrees to get on Depakote. 01/16 Patient slept last night having started Depakote Still making inappropriate comments but redirectable. Today he lashed out at his one-to-one staff, saying ... Why did you call me a pedophile however patient quickly apologized. He tells keno writer / runner that today he feels more clear minded and agrees to continue with Depakote. Would like Zyprexa to be lowered to which keno writer / runner agreed Patient reported sore throat but refused throat culture. -discussed his making inappropriate comments and patient apologized saying he does not want to do that 01/17 Patient says he is feeling better and maybe back to his regular self. He shares a bizarre idea about a place that all of us can go.. Referring to staff and the patients on the unit, saying he wants to go somewhere near [place] were everyone can stay. Otherwise he is sleeping better and says he wants to get off any medication that makes him tired during the day because he needs to work at [employer]. He asks when he can discharge home and was grateful to understand that [facility] wants [facility] back. He agrees to DC clonidine; agrees to continue taking Depakote and get labs; discussed Zyprexa and patient agrees to have it tapered since he was not on this previously 01/18 asks for levothyroxine to be changed to 9am since he feels it is too much to take med indications 3 times a day Today much improved in terms of abstaining from making inappropriate comments; so far more appropriate during group meetings increasing Depakote ER to 1000mg since level subtherapeutic; patient agrees. still intermittent makes delusional comments but seems to be less so... 01/19 Patient doing much better today and though still some odd semi delusional remarks, no sexually inappropriate ones and doing well in groups. Patient sleepy today and not sure why. Discussed medication regimens and he would like trazodone taken down since he is wondering if that is what made him groggy today. Patient very concerned about being sleepy when he get back to work 01/20 remains doing much better, no sexual remarks, much less paranoid delusional comments, sleeping well and overall appropriate with peers and staff; complains of cyst on right upper buttocks and surgical consult placed -not tired during the day after discontinuing both trazodone and Zyprexa at bedtime 01/21 Patient remains with much improved behaviors; appropriate with peers and staff.? Still intermittently delusional in today said he was unable to walk or use his legs; however he walked with keno writer / runner up and down the [place] and realize that he could use his legs just fine; he concluded that in his cramped bedroom it appeared as if he could not move his legs but once in the hallway with more space, he realized it was a misperception. -Discussed pilonidal cyst on right buttock cleft; patient understands surgical team starting patient on antibiotic to see if that helps resolve; otherwise considering surgical excision Surgery rec: Patient currently has an area of phlegmon but no clear abscess at this time.? Recommend starting oral antibiotics and watching over the next several days.? Discussed with the patient he expressed understanding 01/22 remains stable, overall good mood, appropriate peers and staff. Patient remains with some delusional thinking the intermittently expressed but is otherwise close to baseline. He is appropriate to return to the community for treatment. Will discuss with surgery regarding pilonidal cyst Grocery Worker spoke with surgeon Dr. Dusty Sullivan who examined cyst on day of discharge, and reports it looks much improved and to continue antibiotics. Plan: CV Q 15 minute checks -started on amoxicillin for pilonidal cyst Continue Thorazine to 225 mg b.i.d. Continue Depakote ER 1000mg qhs; Depakote level subtherapeutic DC Zyprexa medication was started at [facility], last psych hospitalization a week before this 1) Continue lithium ER 1200 mg, but make a q.h.s. (rather than 600 mg b.i.d.to help with poor sleep) DC'd clonidine; patient said it makes him tired and does not want Continue levothyroxine 25 mcg daily at 09:00 Continue metformin 850 mg b.i.d. DC trazodone Patient has Zyprexa 10 mg daily p.r.n. Patient educated on: diagnosis, medication risk/benefits and medical c Time Spent with Patient Time attestation: Total time managing care of this patient today ____ minutes. Discharge Plan Discharge Anticipated Discharge Date/Time: 01/24/24 11:30 Patient Disposition: Home, Self-Care Discharge Diagnosis: Schizoaffective disorder, bipolar type, most recent episode manic, in full remission Referrals: Psych Prescriber: Margarita Martinez ([facility]) [Other] - 02/03/24 11:30 am (Telehealth) Physician,Unknown J [Primary Care Provider] - 1 Week Discharge Medications: New amoxicillin-pot clavulanate 500-125 mg Tablet 1 tab PO TID 5 Days Qty: 15 0RF chlorpromazine 25 mg tablet 25 mg PO BID 30 Days Qty: 60 0RF Rx Instructions: take with 200mg tab divalproex 500 mg Tablet Extended Release 24 Hr 1,000 mg PO BEDTIME 30 Days Qty: 60 0RF topiramate 50 mg tablet 50 mg PO BID 30 Days Qty: 60 0RF olanzapine [Zyprexa] 10 mg tablet 10 mg PO DAILY PRN (Reason: agitation) 30 Days Qty: 30 0RF trazodone 50 mg tablet 50 mg PO BEDTIME PRN (Reason: insomnia) 30 Days Qty: 30 0RF Continued acetaminophen 500 mg tablet 1,000 mg PO Q8-10H PRN (Reason: Analgesia) metformin 850 mg tablet 850 mg PO BID 30 Days Qty: 60 0RF levothyroxine 25 mcg tablet 25 mcg PO DAILY 30 Days Qty: 30 0RF cholecalciferol (vitamin D3) 25 mcg (1,000 unit) Capsule 25 mcg PO DAILY 30 Days Qty: 30 0RF omega-3 acid ethyl esters 1 gram capsule 1 g PO DAILY 30 Days Qty: 30 0RF Changed lithium carbonate [Lithobid] 300 mg tablet extended release 1,200 mg PO BEDTIME 30 Days Qty: 120 0RF chlorpromazine 200 mg tablet 200 mg PO BID 30 Days Qty: 60 0RF Rx Instructions: take with 25mg tab Discharge Orders: Discharge Order (Routine); Ordered 01/24/24 Ordered By: Harmeet Sotelo Diet: diabetic if willing Activity on Discharge: As tolerated Stand Alone Forms: Patient Portal Discharge page Print Language: Korean Care Plan Goals: Maintain mood and safe behaviors Take medications as prescribed Practice coping skills Continue with outpatient providers and reach out to them as needed Health Concerns: Mood stability and behaviors Pilonidal Cyst: follow up with PCP within in 1 week to have this assessed Plan of Treatment: Follow up with your PCP, psychiatric provider and other outpatient providers regarding above concerns Take medications as prescribed Assessment: Risk assessment at time of discharge:? Patient was interviewed prior to discharge and found to be fully oriented and without any SI or HI. Patient has improved insight and judgment and wants to continue treatment. Patient is not in imminent risk of harm to self or others and has a safety plan that includes presenting to the closest ER or calling 911 if feeling unsafe.? Patient has been observed closely by nursing and unit staff throughout admission; patient has not engaged in any behaviors that suggest dangerousness to self or others and has demonstrated appropriate behaviors and impulse control
[2024-01-24] MEDS: Levothyroxine Sodium 25 MCG TABLET PO (09:41)
[2024-01-24] MEDS: CHLORPROMAZINE 225 MG PO (09:41)
[2024-01-24] MEDS: metFORMIN HCl 850 MG TABLET PO (09:41)
[2024-01-24] MEDS: Cholecalciferol (Vitamin D3) 25 MCG TABLET PO (09:41)
[2024-01-24] MEDS: Topiramate 25 MG TABLET 50 MG PO (09:41)
[2024-01-24] MEDS: Amoxicillin/Potassium Clav 500 MG TABLET PO (09:41)
--- NOTE | 2024-01-24 10:18 | PM.PNGS ---
Subjective Subjective Date of Service: 01/24/24 Interval history: Patient denies any pain today from the pilonidal cyst Physical Exam Vital Signs: Vital Signs: Last Vital Signs Temp 97.8 F 01/23/24 20:00 Pulse 128 H 01/23/24 20:00 Resp 18 01/24/24 08:00 BP 127/73 01/23/24 20:00 Pulse Ox 96 01/23/24 20:00 O2 Del Method Room Air 01/23/24 20:00 BMI result Body Mass Index 35.8 Const: General: comfortable Nutritional Appearance: well nourished Resp: Effort & Inspection: normal respiratory effort Back/Spine/Pelvis: Other: Pilonidal sinus in the left intergluteal cleft: Less swelling noted today. No fluctuance, erythema or discharge. Nontender to palpation. Objective Data Active Medications Acetaminophen (Acetaminophen 325 Mg Tablet) 975 mg PO Q8H PRN PRN Reason: Analgesia Last Admin: 01/22/24 23:17 Dose: 975 mg Documented By: FER Al Hydroxide/Mg Hydroxide (Magnesium Hydrox/Alum Hydrox 30 Ml Oral.Susp) 30 ml PO Q6H PRN PRN Reason: Heartburn/Nausea Amoxicillin/Clavulanate Potassium (Amoxicillin/Potassium Clav 500 Mg Tablet) 500 mg PO TID [facility] Stop: 01/29/24 09:56 Last Admin: 01/24/24 09:41 Dose: 500 mg Documented By: FARIHA Comments: Pt declined to take until after breakfast Benzocaine (Throat Lozenge, Medicated Lozenge) 1 lozenge MUCOUS MEM Q2H PRN PRN Reason: Sore Throat Chlorpromazine HCl 200 mg/ (Chlorpromazine HCl 25 mg) 225 mg PO BID [facility] Last Admin: 01/24/24 09:41 Dose: 225 mg Documented By: FARIHA Divalproex Sodium (Divalproex Sodium Er 500 Mg Tab.Er.24h) 1,000 mg PO BEDTIME [facility] Last Admin: 01/23/24 21:57 Dose: 1,000 mg Documented By: TRISTAN Hydroxyzine HCl (Hydroxyzine Hcl 25 Mg Tablet) 25 mg PO Q6H PRN PRN Reason: Anxiety Last Admin: 01/23/24 23:12 Dose: 25 mg Documented By: BERONICA Levothyroxine Sodium (Levothyroxine Sodium 25 Mcg Tablet) 25 mcg PO DAILY@0900 [facility] Last Admin: 01/24/24 09:41 Dose: 25 mcg Documented By: FARIHA Benzonia Carbonate (Benzonia Carbonate Er 300 Mg Tablet.Er) 1,200 mg PO BEDTIME [facility] Last Admin: 01/23/24 21:57 Dose: 1,200 mg Documented By: TRISTAN Magnesium Hydroxide (Milk Of Magnesia 30 Ml Oral.Susp) 30 ml PO DAILY PRN PRN Reason: Constipation Metformin HCl (Metformin Hcl 850 Mg Tablet) 850 mg PO BID [facility] Last Admin: 01/24/24 09:41 Dose: 850 mg Documented By: FARIHA Nicotine Polacrilex (Nicotine Polacrilex 2 Mg Gum) 4 mg BUCCAL Q2H PRN PRN Reason: Nicotine Cravings Olanzapine (Olanzapine Odt 10 Mg Tab.Rapdis) 10 mg TRANSLINGU DAILY PRN PRN Reason: psychosis Last Admin: 01/22/24 22:57 Dose: 10 mg Documented By: TRISTAN Topiramate (Topiramate 25 Mg Tablet) 50 mg PO BID [facility] Last Admin: 01/24/24 09:41 Dose: 50 mg Documented By: FARIHA Vitamin D (Cholecalciferol (Vitamin D3) 25 Mcg Tablet) 25 mcg PO DAILY [facility] Last Admin: 01/24/24 09:41 Dose: 25 mcg Documented By: FARIHA Labs 01/08/24 15:03 01/21/24 11:34 Procedures Date of Service Date of Service: 01/24/24 Progress Note: A&P Assessment and plan (1) Pilonidal cyst of zi cleft: Status: Acute Plan Patient is improved with 48 hours of antibiotics. Would continue antibiotics for 1 week. Recommend follow-up with his primary care physician post discharge. Time Spent With Patient Time: Total time managing care of this patient today ____ minutes. Quality Stroke Does the patient have a stroke diagnosis?: No VTE Prior VTE?: No VTE Risk Level:: Surgical - low VTE Device Contraindication: Treatment Not Indicated VTE Drug Contraindication: Treatment Not Indicated
== END 2024-01-24 10:51 | disposition home or self-care (01) | DRG 885 ==
PROVIDERS: Psychiatry & Neurology Psychiatry; Admitting Provider Psychiatry & Neurology Psychiatry; Visit Provider Psychiatry & Neurology Psychiatry
DX: F25.0 Schizoaffective disorder, bipolar type (principal); E03.9 Hypothyroidism, unspecified; E11.9 Type 2 diabetes mellitus without complications; L05.91 Pilonidal cyst without abscess; Z79.84 Long term (current) use of oral hypoglycemic drugs; Z79.890 Hormone replacement therapy; Z79.899 Other long term (current) drug therapy
CPT/HCPCS: 36415; 80053; 80061; 80076; 80164; 80178; 82140; 82565; 82607; 82746; 83036; 84439; 84443; 84520; 85025; 93005

== ENCOUNTER → 2024-01-06 18:46 | Outpatient (BNV) | payer OTHER, SELFPAY | PROVIDERS: Admitting Provider Psychiatry & Neurology Psychiatry; Visit Provider Psychiatry & Neurology Psychiatry | DX: F20.1 Disorganized schizophrenia (principal); E03.9 Hypothyroidism, unspecified; E11.9 Type 2 diabetes mellitus without complications; L05.91 Pilonidal cyst without abscess | CPT/HCPCS: 99231; 99232 ==

== ENCOUNTER → 2024-01-06 18:46 | Outpatient (BNV) | payer OTHER, SELFPAY | PROVIDERS: Admitting Provider Psychiatry & Neurology Psychiatry; Visit Provider Family Medicine | DX: E11.9 Type 2 diabetes mellitus without complications (principal); E03.9 Hypothyroidism, unspecified | CPT/HCPCS: 99221 ==

== ENCOUNTER → 2024-01-06 18:46 | Outpatient (BNV) | payer OTHER, SELFPAY | PROVIDERS: Admitting Provider Psychiatry & Neurology Psychiatry; Visit Provider Surgery | DX: L05.91 Pilonidal cyst without abscess (principal) | CPT/HCPCS: 99222 ==